=== PATIENT | female | born 1935 | race Caucasian/White ===

== ENCOUNTER → 2022-04-10 12:39 | Outpatient (CLI) | payer MEDICARE, SELFPAY ==
--- NOTE | ~2022-04-10 | XR_ITS ---
XR_[id number]_CR DATE: 04/10/2022 13:39 INDICATION: Chronic degenerative change of the knees TECHNIQUE: AP and lateral views of left knee COMPARISON: None FINDINGS: There is osteopenia. There is severe joint space narrowing and mild periarticular spurring at the medial compartment consi stent with severe medial compartment osteoarthritis. Lateral compartment joint space is well preserve d, with minimal periarticular spurring. There is mild periarticular spurring at the patellofemoral joint. No fracture, dislocation, periosteal reaction or bone destruction, radiopaque intra-articular loose b mendy or, calcinosis is detected. 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 . Reviewed, dictated and finalized at [facility]. 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
--- NOTE | ~2022-04-10 | XR_ITS ---
XR_[id number]_CR DATE: 04/10/2022 13:39 INDICATION: Chronic degenerative change of the knees TECHNIQUE: Standing AP and lateral views COMPARISON: None FINDINGS: There is diffuse osteopenia. No fracture or dislocation, periosteal reaction or bone destru ction. There is tricompartment osteoarthritic, most severe at the lateral compartment, moderate at the rivera lofemoral and medial compartments. No radiopaque intra-articular loose body or chondrocalcinosis is detected. Mild to moderate suprapate llar knee joint effusion is suggested. IMPRESSION: Mild to moderate suprapatellar knee joint effusion is suggested Tricompartment osteophytes, severe at the lateral compartment Osteopenia Reviewed, dictated and finalized at [facility]. Reviewed, dictated and finalized at [facility]. 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
== END ==
PROVIDERS: PCP Internal Medicine; Visit Provider Physical Medicine & Rehabilitation
DX: M17.0 Bilateral primary osteoarthritis of knee (principal); M25.461 Effusion, right knee; M85.861 Other specified disorders of bone density and structure, right lower leg; M85.862 Other specified disorders of bone density and structure, left lower leg
CPT/HCPCS: 73560

== ENCOUNTER 2024-06-12 15:50 | Emergency (ER) | payer MEDICARE, SELFPAY ==
[2024-06-12] VITALS (28 sets, daily range): BP systolic 79–114; BP diastolic 51–76; PULSE 70–88; RESP 12–27; TEMP 36.6; O2SAT 95–100
--- NOTE | ~2024-06-12 | XR_ITS ---
HISTORY: knee pain COMPARISON: 04/10/2022 TECHNIQUE: 3 views of the left knee were performed FINDINGS: No acute or subacute fracture. Severe medial tibiofemoral joint space narrowing is identified with sclerosis of the distal femur and tibial plateau, demonstrating progression from previous examination dated 04/10/2022 No suprapatellar joint effusion is identified. The infrapatellar joint space is clear. Diffuse bony demineralization is present. IMPRESSION: Severe medial tibiofemoral joint space narrowing, demonstrating significant progression from previous examination performed in 2022. Reviewed, dictated and finalized at location A. IMPRESSION: Severe medial tibiofemoral joint space narrowing, demonstrating si gnificant progression from previous examination performed in 2022.
--- NOTE | ~2024-06-12 | CT_ITS ---
EXAMINATION: CTA chest PE protocol DATE: 06/12/2024 20:04 CDT INDICATION: Hypoxia TECHNIQUE: Computed tomographic angiography (CTA) of the chest was performed with 100 mL Omnipaque-35 0 intravenous contrast. The dose-length product was 265.95 mGy-cm. Maximum intensity projection 3D-re constructions of the aorta and other arteries were constructed by the technologist on a separate work station. COMPARISON: 04/26/2024, which demonstrated extensive bilateral pulmonary emboli and right heart strain . FINDINGS/OBSERVATIONS: PULMONARY ARTERIES: No filling defect is identified within the main or proximal pulmonary artery. Massive enlargement of both the main and proximal pulmonary arteries consistent with severe pulmonary hypertension. This finding is unchanged from previous examination dated 04/26/2024 THORACIC AORTA: No aneurysmal dilatation or dissection is present. The great vessels are intact LUNGS: Bilateral pleural effusions (right greater than left) with adjacent compressive atelectasis. This finding is an interval change from prior. MEDIASTINUM: No morphologically suspicious or pathologically enlarged lymph nodes are identified with in the mediastinum or bilateral axilla. BONES OF THE CHEST: No acute fracture. 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 No lytic or blastic lesions. HEART: The heart is significantly enlarged, without pericardial effusion. IMPRESSION: No pulmonary embolus. No thoracic aortic dissection. Findings consistent with significant pulmonary hypertension, as detailed above. Interval development of small bilateral pleural effusions with adjacent compressive compressive atele ctasis Reviewed, dictated and finalized at location A. IMPRESSION: No pulmonary embolus. No thoracic aortic dissection. Findings consistent with significant pulmonary hypertension, as detailed above. Interval development of small bilateral pleural effusions with adjacent yue sive compressive atelectasis
--- NOTE | ~2024-06-12 | US_ITS ---
EXAMINATION: US venous doppler [facility] DATE: 06/12/2024 16:53 INDICATION: Bilateral lower limb pain and swelling TECHNIQUE: Grayscale ultrasound images without and with compression and Doppler ultrasound images of the bilateral lower extremity veins were obtained. COMPARISON: None. FINDINGS: Noncompressible but nonocclusive deep venous thrombosis at the right posterior tibial and peroneal ve ins at the calf. The visualized portions of right common femoral vein, profunda (deep) femoral vein, femoral vein, popliteal vein, gastrocnemius vein and greater saphenous vein outflow are patent. Noncompressible deep venous fibrosis at the left posterior tibial and peroneal veins which appears oc clusive on color Doppler at the peroneal veins and at one of the posterior tibial veins. The visualiz ed portions of left common femoral vein, profunda femoral vein, femoral vein, popliteal vein, gastroc nemius vein and greater saphenous vein outflow are patent. IMPRESSION: 1. Myyjp-hsi-nlda deep venous anastomosis at the bilateral posterior tibial and peroneal veins at th e calf. Dr. Cohen discussed these findings with Dr. Merrill at 5:07 PM. Reviewed, dictated and finalized at location A. IMPRESSION: 1. Qdhia-mmx-ghvt deep venous anastomosis at the bilateral posterior tibial an d peroneal veins at the calf. Dr. Cohen discussed these findings with Dr. Speedy zuniga at 5:07 PM.
--- NOTE | ~2024-06-12 | XR_ITS ---
XR chest 1V portable Ordering provider: Della Merrill PA-C History: 89 years Female with . chf w/u . Comparison: April 26, 2024 FINDINGS: MEDIASTINUM: The cardiac silhouette is slightly enlarged. Sliding hiatus hernia. Prominent right hilu m. Further evaluation advised. LUNGS: No effusions or pneumothorax. Opacification in the right lung base seen suggestive of atelecta sis versus pneumonia. OTHER: No free air under the diaphragm. IMPRESSION: Right basilar atelectasis versus pneumonia. Prominent right hilum. Further evaluation advised. Sliding hiatus hernia. Slight cardiomegaly. Reviewed, dictated and finalized at location A.
--- NOTE | 2024-06-12 16:30 | ECG_ITS ---
Test Date: 2024-06-12 16:54:38 Measurements Intervals Freedom Rate: 85 P: 42 GA: 191 QRS: -21 QRSD: 105 T: -35 QT: 328 QTc: 392 Interpretive Statements SINUS RHYTHM WITH OCCASIONAL SUPRAVENTRICULAR PREMATURE COMPLEXES BORDERLINE LEFT AXIS DEVIATION [QRS AXIS < -20] NONSPECIFIC ST AND T WAVE ABNORMALITY No previous ECG available for comparison Electronically Signed On 06-13-2024 12:05:21 CDT by Du Degroot M.D.
--- NOTE | 2024-06-12 16:30 | ED.EXTPRO ---
HPI - Extremity Problem General Chief complaint: Extremity Problem,Nontraumatic <ROLY Michele Last Filed: 06/12/24 20:41> Stated complaint: L knee pain <ROLY Michele Last Filed: 06/12/24 20:41> Time Seen by Provider: 06/12/24 16:12 <ROLY Michele Last Filed: 06/12/24 20:41> Source: patient, family and old records reviewed <ROLY Michele Last Filed: 06/12/24 20:41> Mode of arrival: EMS <ROLY Michele Last Filed: 06/12/24 20:41> Limitations: no limitations <ROLY Michele Last Filed: 06/12/24 20:41> History of Present Illness HPI Narrative: Patient is an 89-year-old female, with past medical history of CHF, DM, pulmonary HTN, CKD, hypotension, who presents to the ED via EMS with report of L knee pain. Patient is resident of [facility]. Per fdc report, patient was sent here today due to pain in her left knee. Family reports this began while patient was in physical therapy. Denies any injury. Per records, patient was recently seen here on 04/26, diagnosed with right lower extremity DVT of the common femoral vein, as well as bilateral PEs with right heart strain. She was transferred to [facility] at that time. Patient is now on Xarelto. Family reports patient has been dealing with swelling throughout her bilateral lower extremities for quite some time. She has been using compression bandages, but still has significant swelling. She is on lasix 20mg daily. Per fdc report, patient was also noted to be hypoxic on her normal 2 L. Was increased to 4L. Patient denies shortness of breath, recent cough, chest pain. No fevers. <ROLY Michele Last Filed: 06/12/24 20:41> Related Data Home medications: Home Medications ?Medication ?Instructions ?Recorded ?Confirmed ?Last Taken ?Type ferrous sulfate 325 mg (65 mg 325 mg PO DAILY 07/05/23 Unknown History iron) tablet <Della Merrill PA-C - Last Filed: 06/12/24 20:41> Allergies/Adverse reactions: Allergies Allergy/AdvReac Type Severity Reaction Status Date / Time Penicillins Allergy Severe Hives Verified 06/12/24 16:01 heparin Allergy Unknown Unknown Verified 06/12/24 16:01 <Della Merrill PA-C - Last Filed: 06/12/24 20:41> Review of Systems Review of Systems: All systems reviewed & are unremarkable except as noted in HPI. 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 of arm Peritonitis Osteoporosis Mild dementia CKD (chronic kidney disease) stage 3, GFR 30-59 ml/min Degenerative arthritis of knee, bilateral Lipoma of back Overweight (10/25/15) Type 2 diabetes mellitus without complication, without long-term current use of insulin <Della Merrill PA-C - Last Filed: 06/12/24 20:41> Surgical History Surgical History: Surgical History History of gastric surgery <Della Merrill PA-C - Last Filed: 06/12/24 20:41> Family History Family History: Family History Mother Diabetes mellitus Family history of diabetes mellitus in first degree relative Patient's mother is Sibling Cerebrovascular accident Patient's sister is in good health Family history of malignant neoplasm Patient's sister is Patient's brother is <Della Merrill PA-C - Last Filed: 06/12/24 20:41> Social History Social History: Social History Social History: Smoking status: Never smoker Second hand tobacco smoke exposure: No Alcohol intake: current Substance use: never Substance use type: does not use Do You Feel Safe in your Home?: Yes Lack of Transportation: No Lack of Food: Never True Current Housing: I Have Housing Concerned About Future Housing: No Difficulty Paying Gas/Electric Bills: No Difficulty Paying for Meds: No Currently Unemployed: YES Education: Don't Know Difficulty w/ Childcare or Family Care: No Living arrangements: alone Occupation/Education: retired Gender identity (if verbalized by the patient): Female Sexual Orientation (if Verbalized by the Patient): Straight or Heterosexual <Della Merrill PA-C - Last Filed: 06/12/24 20:41> Exam Narrative: GENERAL: Elderly, frail, non-toxic, in no acute distress. HEAD: Normocephalic, atraumatic. RESPIRATORY: Airway patent, respirations nonlabored. Decreased lung sounds in bases bilaterally, slight rhonchi heard in right lower lung zone. On 2L NC. CARDIOVASCULAR: Regular rate and rhythm without murmurs, rubs, or gallops. Pedal pulses are intact. MUSCULOSKELETAL: Moves all extremities. No gross deformities. Severe pitting edema throughout bilateral lower extremities, extending all the way up to thighs/hips. Anasarca. SKIN: Warm, dry, normal color. Abrasion to right lower giles which does appear to be well healing. No signs of infection at this time. NEURO: A&O X3. Speech clear. Cranial nerves II-XII grossly intact. No ataxic movements. PSYCHIATRIC: Appropriate mood and affect. Normal interaction. <Della Merrill PA-C - Last Filed: 06/12/24 20:41> Course Vital Signs Vital signs: Vital Signs Temperature 36.6 C 06/12/24 15:50 Pulse Rate 82 06/12/24 15:50 Respiratory Rate 14 06/12/24 15:50 Blood Pressure 114/76 06/12/24 15:50 Pulse Oximetry 95 06/12/24 15:50 Oxygen Delivery Nasal Cannula 06/12/24 15:50 Oxygen Flow Rate 2 06/12/24 15:50 Temperature 36.6 C 06/12/24 15:50 Pulse Rate 84 06/12/24 21:16 Respiratory Rate 24 H 06/12/24 21:16 Blood Pressure 89/56 L 06/12/24 21:15 Pulse Oximetry 98 06/12/24 21:16 Oxygen Delivery Nasal Cannula 06/12/24 15:50 Oxygen Flow Rate 2 06/12/24 15:50 <Della Merrill PA-C - Last Filed: 06/12/24 20:41> Vital Signs Temperature 36.6 C 06/12/24 15:50 Pulse Rate 82 06/12/24 15:50 Respiratory Rate 14 06/12/24 15:50 Blood Pressure 114/76 06/12/24 15:50 Pulse Oximetry 95 06/12/24 15:50 Oxygen Delivery Nasal Cannula 06/12/24 15:50 Oxygen Flow Rate 2 06/12/24 15:50 Temperature 36.6 C 06/12/24 15:50 Pulse Rate 84 06/12/24 21:16 Respiratory Rate 24 H 06/12/24 21:16 Blood Pressure 89/56 L 06/12/24 21:15 Pulse Oximetry 98 06/12/24 21:16 Oxygen Delivery Nasal Cannula 06/12/24 15:50 Oxygen Flow Rate 2 06/12/24 15:50 <Dusty Gillette MD - Last Filed: 06/12/24 23:35> MDM - Extremity (Nontraumatic) MDM Narrative Medical decision making narrative: Patient presented to ED with left knee pain, hypoxia, swelling of legs. Recent hospitalization in April of this year for RLE DVT, PEs with right heart strain, hypoxia. Patient was started on heparin at that time, transferred to [facility]. Now on xarelto. care home staff reported patient's oxygen was low on her 2 L nasal cannula today, she was increased to 4 L. Oxygen is stable in the mid 90s on 2 L here. Vitals are otherwise stable. Blood pressure is somewhat borderline hypotensive, though family reports this is fairly normal for patient. She does have history of hypotension and is on midodrine. Patient today with severe diffuse pitting edema throughout bilateral lower extremities. Is on Lasix 20 mg daily. Grandson at bedside reports that patient often has issues with her diuretic causing hypotension. BNP today is elevated to 5030. Given dose of IV Lasix in the ED. Venous Doppler ultrasound of bilateral lower extremities was obtained. This is showing bilateral jhuvc-vin-[id number] DVTs. Venous Doppler ultrasound of BLE on 04/26, only showed thrombosis of RLE common femoral vein. She has been on xarelto, last dose today. Patient's fdc paperwork now has a heparin allergy reported. Unclear etiology of this. Will discuss with family. XR L knee with severe progressing arthritis, no fx. CBC with white blood cell count of 10.2. Hemoglobin 10.4. Hemoglobin from April was low into this 7 range. CMP with sodium of 132, potassium 3.0. Oral and IV replacement given. Magnesium was borderline at 1.7. IV replacement ordered. Kidney function is stable here today. Calcium slightly low at 7.5. Albumin low at 2.6. Given IV albumin replacement for fluid overload/intravascular depletion. EKG without concerning ischemic changes at this time. Patient is denying chest pain. Baseline troponin is undetectable. Coags are abnormal. PT prolonged at 40.3. PTT 52.9. INR 4.1. Given these findings with worsening blood clots while on anticoagulation, DIC panel was added on. HIT antibodies added on. Fibrinogen WNL. D-dimer 1.25. CTA of chest obtained to r/o worsening pulmonary emboli. This shows no evidence of PE, does show severe pHTN. Given that patient has failed oral anticoagulation with worsening clots, abnormal coagulopathy, now with acute CHF exacerbation. Patient will need admission for further evaluation. Unfortunately we do not have hematology here. Will discuss with [facility] for transfer for continuity of care/higher level care. Had extensive discussion with patient's nieces (Purnima-RAINA, Cassie) via phone. They report the patient had developed abnormal intramuscular bleeding at [facility] while on heparin. They are not aware of any other allergies/reactions to heparin. They believe this is the cause of the heparin allergy listed. Patient had IVC filter placed while at [facility]. Family want a second opinion and would like patient transferred to [place]. Family would be OK with a central line if patient needs it. Patient is a DNR/DNI, but they would otherwise want everything done. <Della Merrill PA-C - Last Filed: 06/12/24 20:41> Patient presented to ED with left knee pain, hypoxia, swelling of legs. Recent hospitalization in April of this year for RLE DVT, PEs with right heart strain, hypoxia. Patient was started on heparin at that time, transferred to [facility]. Now on xarelto. care home staff reported patient's oxygen was low on her 2 L nasal cannula today, she was increased to 4 L. Oxygen is stable in the mid 90s on 2 L here. Vitals are otherwise stable. Blood pressure is somewhat borderline hypotensive, though family reports this is fairly normal for patient. She does have history of hypotension and is on midodrine. Patient today with severe diffuse pitting edema throughout bilateral lower extremities. Is on Lasix 20 mg daily. Grandson at bedside reports that patient often has issues with her diuretic causing hypotension. BNP today is elevated to 5030. Given dose of IV Lasix in the ED. Venous Doppler ultrasound of bilateral lower extremities was obtained. This is showing bilateral [id number] DVTs. Venous Doppler ultrasound of BLE on 04/26, only showed thrombosis of RLE common femoral vein. She has been on xarelto, last dose today. Patient's fdc paperwork now has a heparin allergy reported. Unclear etiology of this. Will discuss with family. XR L knee with severe progressing arthritis, no fx. CBC with white blood cell count of 10.2. Hemoglobin 10.4. Hemoglobin from April was low into this 7 range. CMP with sodium of 132, potassium 3.0. Oral and IV replacement given. Magnesium was borderline at 1.7. IV replacement ordered. Kidney function is stable here today. Calcium slightly low at 7.5. Albumin low at 2.6. Given IV albumin replacement for fluid overload/intravascular depletion. EKG without concerning ischemic changes at this time. Patient is denying chest pain. Baseline troponin is undetectable. Coags are abnormal. PT prolonged at 40.3. PTT 52.9. INR 4.1. Given these findings with worsening blood clots while on anticoagulation, DIC panel was added on. HIT antibodies added on. Fibrinogen WNL. D-dimer 1.25. CTA of chest obtained to r/o worsening pulmonary emboli. This shows no evidence of PE, does show severe pHTN. Given that patient has failed oral anticoagulation with worsening clots, abnormal coagulopathy, now with acute CHF exacerbation. Patient will need admission for further evaluation. Unfortunately we do not have hematology here. Will discuss with [facility] for transfer for continuity of care/higher level care. Had extensive discussion with patient's nieces (Merlyn, Cassie) via phone. They report the patient had developed abnormal intramuscular bleeding at [facility] while on heparin. They are not aware of any other allergies/reactions to heparin. They believe this is the cause of the heparin allergy listed. Patient had IVC filter placed while at [facility]. Family want a second opinion and would like patient transferred to [facility] system. Family would be OK with a central line if patient needs it. Patient is a DNR/DNI, but they would otherwise want everything done. Dr. Gillette: Assumed care from previous provider at shift change 7:00 p.m. patient was evaluated at bedside and doing well, not any acute distress and not having any acute complaints. She does have significant coagulopathy with elevated INR and still having new blood clots on Doppler ultrasound today. CTA shows improvement without any CT evidence of pulmonary embolism burden but she does have findings consistent with significant pulmonary hypertension as previously found. Interval small development of pleural effusions consistent with her clinical exam findings of anasarca, 3rd spacing and weeping of fluid. She does have a low albumin 2.6 which also contributes to the decreased oncotic pressure and 3rd spacing of fluid. She was provided additional boluses of albumin and a small 500 cc bolus of fluid with improvement her vitals. She does take midodrine 10 mg t.i.d. for low blood pressure and her family confirms her blood pressure runs in the 80s to 90 systolic and this is not abnormal for recently. She remains with good maps above 65 which is reassuring she is also saturating 100% on her baseline 2 L nasal cannula which is an improvement after treatment regimen here from her arrival time. Patient's care was discussed with the [facility] transfer system and I was connected with the hospitalist team at [facility] in [place]. Discussed the case with the mid-level provider covering the hospitalist service under Dr. Jacob who will be the accepting physician. We went over patient's clinical exam, historical features and findings as well as family's desire to avoid transfer to the [facility] system. Patient was accepted as a transfer to a telemetry monitored bed at [facility]. Awaiting call back with bed assignment. Transfer forms filled out and family updated on plan of care and were agreeable to the transfer to this hospital system. Patient remains on orthotist prosthetist with stable vitals at this time. <Dusty Gillette MD - Last Filed: 06/12/24 23:35> Medical Records Attestation: I reviewed the patient's medical records. <Della Merrill PA-C - Last Filed: 06/12/24 20:41> Lab Data Attestation: I reviewed the patient's lab results. <Della Merrill PA-C - Last Filed: 06/12/24 20:41> Result diagrams: 06/12/24 17:41 06/12/24 16:42 <Della Merrill PA-C - Last Filed: 06/12/24 20:41> Labs: Lab Results 06/12/24 06/12/24 06/12/24 Range/Units 16:42 16:42 17:41 WBC 10.2 H 10.3 H (4.5-10.0) K/mm3 RBC 3.92 L 3.76 L (4.2-5.4) M/mm3 Hgb 10.4 L 9.9 L (12.0-15.0) g/dL Hct 34.7 L 33.0 L (37.0-47.0) % MCV 88.5 87.8 (80-100) fl MCH 26.5 26.3 (26-34) pg MCHC 30.0 L 30.0 L (32-36) g/dl RDW 21.2 H 21.4 H (11.5-14.5) % Plt Count 163 173 (150-375) k/mm3 MPV 9.2 9.1 (7.4-10.4) fl Immature Gran % (Auto) 0.4 (0-0.5) % Neut % (Auto) 81.9 H (45.5-73.1) % Lymph % (Auto) 10.4 L (18.3-44.2) % [place] % (Auto) 6.3 (2.6-8.5) % Eos % (Auto) 0.8 (0-4.4) % Baso % (Auto) 0.2 (0.2-1.2) % Lymph # (Auto) 1.06 (0.9-3.2) K/mm3 [place] # (Auto) 0.6 (0.1-0.6) K/mm3 Eos # (Auto) 0.1 (0-0.3) K/mm3 Baso # (Auto) 0.0 (0.0-0.1) K/mm3 Abs Immat Gran (auto) 0.04 H (0.00-0.031) K/mm3 Absolute Neuts (auto) 8.4 H (1.3-6.7) K/mm3 Absolute Nucleated RBC 0.000 (0.0-0.012) K/mm3 Nucleated RBC % 0.0 (0.0-0.2) % PT 40.3 H 39.0 H (11.1-14.7) Seconds INR 4.1 3.9 APTT 52.9 H 53.6 H (22.3-36.8) Seconds Fibrinogen 480 (215-510) mg/dl D-Dimer 1.25 H (<0.48) ug/mL Sodium 132 L (137-145) mmol/L Potassium 3.0 L (3.4-5.0) mmol/L Chloride 94 L (98-107) mmol/L Carbon Dioxide 36 H (22-30) mmol/L Anion Gap 2 L (4-12) mmol/L BUN 21 H (7-17) mg/dL Creatinine 0.76 (0.7-1.0) mg/dL Estim Creat Clear Calc Not Reportable Estimated GFR > 60 (59 - ) Glucose 91 (65-110) mg/dL Calcium 7.5 L (8.4-10.2) mg/dL Magnesium 1.7 1.8 (1.6-2.3) mg/dL Total Bilirubin 0.9 (0.2-1.3) mg/dL AST 28 (14-36) U/L ALT 43 H (6-35) U/L Alkaline Phosphatase 217 H (38-126) U/L Troponin I < 0.012 Cancelled (0.000-0.034) ng/mL NT-Pro-B Natriuret Pep 5030 H (19.9-100) pg/mL Total Protein 6.0 L (6.3-8.2) g/dL Albumin 2.6 L (3.5-5.1) g/dL Urine Color (Yellow) Urine Appearance (Clear) Urine pH (5.0-9.0) Ur Specific [place] (1.001-1.035) Urine Protein (Negative) mg/dL Urine Glucose (UA) (Negative) mg/dL Urine Ketones (Negative) mg/dL Ur Blood (Man) (Negative) Urine Nitrate (Negative) Urine Bilirubin (Negative) Urine Urobilinogen (<2.0) mg/dL Leukocyte Esterase Rfl (Negative) MAXIMINO/UL Urine RBC (0-2) /hpf Urine WBC (0-3) /hpf Ur Squamous Epith Cells (Few) /hpf Urine Bacteria /hpf Urine Casts Heparin-induced Plt Ab Pending Hep-Induced Plt Ab Cmmt Pending 06/12/24 Range/Units 18:41 WBC (4.5-10.0) K/mm3 RBC (4.2-5.4) M/mm3 Hgb (12.0-15.0) g/dL Hct (37.0-47.0) % MCV (80-100) fl MCH (26-34) pg MCHC (32-36) g/dl RDW (11.5-14.5) % Plt Count (150-375) k/mm3 MPV (7.4-10.4) fl Immature Gran % (Auto) (0-0.5) % Neut % (Auto) (45.5-73.1) % Lymph % (Auto) (18.3-44.2) % [place] % (Auto) (2.6-8.5) % Eos % (Auto) (0-4.4) % Baso % (Auto) (0.2-1.2) % Lymph # (Auto) (0.9-3.2) K/mm3 [place] # (Auto) (0.1-0.6) K/mm3 Eos # (Auto) (0-0.3) K/mm3 Baso # (Auto) (0.0-0.1) K/mm3 Abs Immat Gran (auto) (0.00-0.031) K/mm3 Absolute Neuts (auto) (1.3-6.7) K/mm3 Absolute Nucleated RBC (0.0-0.012) K/mm3 Nucleated RBC % (0.0-0.2) % PT (11.1-14.7) Seconds INR APTT (22.3-36.8) Seconds Fibrinogen (215-510) mg/dl D-Dimer (<0.48) ug/mL Sodium (137-145) mmol/L Potassium (3.4-5.0) mmol/L Chloride (98-107) mmol/L Carbon Dioxide (22-30) mmol/L Anion Gap (4-12) mmol/L BUN (7-17) mg/dL Creatinine (0.7-1.0) mg/dL Estim Creat Clear Calc Estimated GFR (59 - ) Glucose (65-110) mg/dL Calcium (8.4-10.2) mg/dL Magnesium (1.6-2.3) mg/dL Total Bilirubin (0.2-1.3) mg/dL AST (14-36) U/L ALT (6-35) U/L Alkaline Phosphatase (38-126) U/L Troponin I (0.000-0.034) ng/mL NT-Pro-B Natriuret Pep (19.9-100) pg/mL Total Protein (6.3-8.2) g/dL Albumin (3.5-5.1) g/dL Urine Color Yellow (Yellow) Urine Appearance Clear (Clear) Urine pH 5.5 (5.0-9.0) Ur Specific [place] 1.005 (1.001-1.035) Urine Protein Negative (Negative) mg/dL Urine Glucose (UA) Negative (Negative) mg/dL Urine Ketones Negative (Negative) mg/dL Ur Blood (Man) 2+ H (Negative) Urine Nitrate Negative (Negative) Urine Bilirubin Negative (Negative) Urine Urobilinogen 0.2 (<2.0) mg/dL Leukocyte Esterase Rfl 3+ H (Negative) MAXIMINO/UL Urine RBC 51-100 H (0-2) /hpf Urine WBC 21-50 H (0-3) /hpf Ur Squamous Epith Cells None seen (Few) /hpf Urine Bacteria None seen /hpf Urine Casts 3-5 Heparin-induced Plt Ab Hep-Induced Plt Ab Cmmt <Della Merrill PA-C - Last Filed: 06/12/24 20:41> Lab Results 06/12/24 06/12/24 06/12/24 Range/Units 16:42 16:42 17:41 WBC 10.2 H 10.3 H (4.5-10.0) K/mm3 RBC 3.92 L 3.76 L (4.2-5.4) M/mm3 Hgb 10.4 L 9.9 L (12.0-15.0) g/dL Hct 34.7 L 33.0 L (37.0-47.0) % MCV 88.5 87.8 (80-100) fl MCH 26.5 26.3 (26-34) pg MCHC 30.0 L 30.0 L (32-36) g/dl RDW 21.2 H 21.4 H (11.5-14.5) % Plt Count 163 173 (150-375) k/mm3 MPV 9.2 9.1 (7.4-10.4) fl Immature Gran % (Auto) 0.4 (0-0.5) % Neut % (Auto) 81.9 H (45.5-73.1) % Lymph % (Auto) 10.4 L (18.3-44.2) % [place] % (Auto) 6.3 (2.6-8.5) % Eos % (Auto) 0.8 (0-4.4) % Baso % (Auto) 0.2 (0.2-1.2) % Lymph # (Auto) 1.06 (0.9-3.2) K/mm3 [place] # (Auto) 0.6 (0.1-0.6) K/mm3 Eos # (Auto) 0.1 (0-0.3) K/mm3 Baso # (Auto) 0.0 (0.0-0.1) K/mm3 Abs Immat Gran (auto) 0.04 H (0.00-0.031) K/mm3 Absolute Neuts (auto) 8.4 H (1.3-6.7) K/mm3 Absolute Nucleated RBC 0.000 (0.0-0.012) K/mm3 Nucleated RBC % 0.0 (0.0-0.2) % PT 40.3 H 39.0 H (11.1-14.7) Seconds INR 4.1 3.9 APTT 52.9 H 53.6 H (22.3-36.8) Seconds Fibrinogen 480 (215-510) mg/dl D-Dimer 1.25 H (<0.48) ug/mL Sodium 132 L (137-145) mmol/L Potassium 3.0 L (3.4-5.0) mmol/L Chloride 94 L (98-107) mmol/L Carbon Dioxide 36 H (22-30) mmol/L Anion Gap 2 L (4-12) mmol/L BUN 21 H (7-17) mg/dL Creatinine 0.76 (0.7-1.0) mg/dL Estim Creat Clear Calc Not Reportable Estimated GFR > 60 (59 - ) Glucose 91 (65-110) mg/dL Calcium 7.5 L (8.4-10.2) mg/dL Magnesium 1.7 1.8 (1.6-2.3) mg/dL Total Bilirubin 0.9 (0.2-1.3) mg/dL AST 28 (14-36) U/L ALT 43 H (6-35) U/L Alkaline Phosphatase 217 H (38-126) U/L Troponin I < 0.012 Cancelled (0.000-0.034) ng/mL NT-Pro-B Natriuret Pep 5030 H (19.9-100) pg/mL Total Protein 6.0 L (6.3-8.2) g/dL Albumin 2.6 L (3.5-5.1) g/dL Urine Color (Yellow) Urine Appearance (Clear) Urine pH (5.0-9.0) Ur Specific [place] (1.001-1.035) Urine Protein (Negative) mg/dL Urine Glucose (UA) (Negative) mg/dL Urine Ketones (Negative) mg/dL Ur Blood (Man) (Negative) Urine Nitrate (Negative) Urine Bilirubin (Negative) Urine Urobilinogen (<2.0) mg/dL Leukocyte Esterase Rfl (Negative) MAXIMINO/UL Urine RBC (0-2) /hpf Urine WBC (0-3) /hpf Ur Squamous Epith Cells (Few) /hpf Urine Bacteria /hpf Urine Casts Heparin-induced Plt Ab Pending Hep-Induced Plt Ab Cmmt Pending 06/12/24 Range/Units 18:41 WBC (4.5-10.0) K/mm3 RBC (4.2-5.4) M/mm3 Hgb (12.0-15.0) g/dL Hct (37.0-47.0) % MCV (80-100) fl MCH (26-34) pg MCHC (32-36) g/dl RDW (11.5-14.5) % Plt Count (150-375) k/mm3 MPV (7.4-10.4) fl Immature Gran % (Auto) (0-0.5) % Neut % (Auto) (45.5-73.1) % Lymph % (Auto) (18.3-44.2) % [place] % (Auto) (2.6-8.5) % Eos % (Auto) (0-4.4) % Baso % (Auto) (0.2-1.2) % Lymph # (Auto) (0.9-3.2) K/mm3 [place] # (Auto) (0.1-0.6) K/mm3 Eos # (Auto) (0-0.3) K/mm3 Baso # (Auto) (0.0-0.1) K/mm3 Abs Immat Gran (auto) (0.00-0.031) K/mm3 Absolute Neuts (auto) (1.3-6.7) K/mm3 Absolute Nucleated RBC (0.0-0.012) K/mm3 Nucleated RBC % (0.0-0.2) % PT (11.1-14.7) Seconds INR APTT (22.3-36.8) Seconds Fibrinogen (215-510) mg/dl D-Dimer (<0.48) ug/mL Sodium (137-145) mmol/L Potassium (3.4-5.0) mmol/L Chloride (98-107) mmol/L Carbon Dioxide (22-30) mmol/L Anion Gap (4-12) mmol/L BUN (7-17) mg/dL Creatinine (0.7-1.0) mg/dL Estim Creat Clear Calc Estimated GFR (59 - ) Glucose (65-110) mg/dL Calcium (8.4-10.2) mg/dL Magnesium (1.6-2.3) mg/dL Total Bilirubin (0.2-1.3) mg/dL AST (14-36) U/L ALT (6-35) U/L Alkaline Phosphatase (38-126) U/L Troponin I (0.000-0.034) ng/mL NT-Pro-B Natriuret Pep (19.9-100) pg/mL Total Protein (6.3-8.2) g/dL Albumin (3.5-5.1) g/dL Urine Color Yellow (Yellow) Urine Appearance Clear (Clear) Urine pH 5.5 (5.0-9.0) Ur Specific [place] 1.005 (1.001-1.035) Urine Protein Negative (Negative) mg/dL Urine Glucose (UA) Negative (Negative) mg/dL Urine Ketones Negative (Negative) mg/dL Ur Blood (Man) 2+ H (Negative) Urine Nitrate Negative (Negative) Urine Bilirubin Negative (Negative) Urine Urobilinogen 0.2 (<2.0) mg/dL Leukocyte Esterase Rfl 3+ H (Negative) MAXIMINO/UL Urine RBC 51-100 H (0-2) /hpf Urine WBC 21-50 H (0-3) /hpf Ur Squamous Epith Cells None seen (Few) /hpf Urine Bacteria None seen /hpf Urine Casts 3-5 Heparin-induced Plt Ab Hep-Induced Plt Ab Cmmt <Dusty Gillette MD - Last Filed: 06/12/24 23:35> Imaging Data Attestation: I personally reviewed and interpreted this imaging study as follows: <Della Merrill PA-C - Last Filed: 06/12/24 20:41> Radiologist's impression: ITS Impressions Chest X-Ray 06/12/24 17:01 IMPRESSION: Right basilar atelectasis versus pneumonia. Prominent right hilum. Further evaluation advised. Sliding hiatus hernia. Slight cardiomegaly. Venous Doppler Study 06/12/24 17:04 IMPRESSION: 1. [id number] deep venous anastomosis at the bilateral posterior tibial and peroneal veins at the calf. Dr. Cohen discussed these findings with Dr. Merrill at 5:07 PM. Knee X-Ray 06/12/24 18:08 IMPRESSION: Severe medial tibiofemoral joint space narrowing, demonstrating significant progression from previous examination performed in 2022. Chest CTA 06/12/24 20:04 IMPRESSION: No pulmonary embolus. No thoracic aortic dissection. Findings consistent with significant pulmonary hypertension, as detailed above. Interval development of small bilateral pleural effusions with adjacent compressive compressive atelectasis <Della Merrill PA-C - Last Filed: 06/12/24 20:41> ECG Data EKG #1: Attestation EKG: I personally reviewed and interpreted this ECG as follows: <ROLY Michele Last Filed: 06/12/24 20:41> ECG completion date: 06/12/24 <Della Merrill PA-C - Last Filed: 06/12/24 20:41> ECG completion time: 16:54 <ROLY Michele Last Filed: 06/12/24 20:41> EKG Interpretation: normal rate (85), sinus rhythm, PVCs and non-specific ST changes <ROLY Michele Last Filed: 06/12/24 20:41> Critical Care Time Critical Care Time Critical Care Time: Yes <Dusty Gillette MD - Last Filed: 06/12/24 23:35> Total Critical Care Time: 120 <Dusty Gillette MD - Last Filed: 06/12/24 23:35> Discharge Plan Discharge Clinical Impression: Hypokalemia, Elevated INR, Acute and chronic respiratory failure, DVT of lower extremity, bilateral, Coagulopathy, Low serum albumin, Anasarca, Chronic asymptomatic hypotension Acute exacerbation of CHF (congestive heart failure) Qualifiers: Heart failure type: unspecified Qualified Code(s): I50.9 - Heart failure, unspecified UTI (urinary tract infection) Qualifiers: Urinary tract infection type: acute cystitis Hematuria presence: with hematuria Qualified Code(s): N30.01 - Acute cystitis with hematuria <ROLY Michele Last Filed: 06/12/24 20:41> Patient Disposition: Acute Care Hospital <ROLY Michele Last Filed: 06/12/24 20:41> Condition: Guarded Prognosis <ROLY Michele Last Filed: 06/12/24 20:41> Patient Language: Kosovan <ROLY Michele Last Filed: 06/12/24 20:41> Prescriptions: No Action ferrous sulfate 325 mg (65 mg iron) tablet 325 mg PO DAILY <Della Merrill PA-C - Last Filed: 06/12/24 20:41> Follow-up/Referrals: Mariluz Martinez MD [Primary Care Provider] - <Della Merrill PA-C - Last Filed: 06/12/24 20:41> Time of Disposition: 23:34 <Della Merrill PA-C - Last Filed: 06/12/24 20:41> 23:34 <Dusty Gillette MD - Last Filed: 06/12/24 23:35>
[2024-06-12 16:49] LABS: Basophils Percent Auto 0.2 % (0.2-1.2); Eosinophils Absolute Auto 0.1 K/mm3 (0-0.3); Eosinophils Percent Auto 0.8 % (0-4.4); Hematocrit 34.7 % (37.0-47.0); Hemoglobin 10.4 g/dL (12.0-15.0); Immature Granulocyte Absolute 0.04 K/mm3 (0.00-0.031); Immature Granulocyte Percent A 0.4 % (0-0.5); Lymphocytes Absolute Auto 1.06 K/mm3 (0.9-3.2); Lymphocytes Percent Auto 10.4 % (18.3-44.2); Mean Corpuscular Hemoglobin 26.5 pg (26-34); Mean Corpuscular Volume 88.5 fl (80-100); Mean Platelet Volume 9.2 fl (7.4-10.4); Monocytes Absolute Auto 0.6 K/mm3 (0.1-0.6); Monocytes Percent Auto 6.3 % (2.6-8.5); Neutrophils Absolute Auto 8.4 K/mm3 (1.3-6.7); Neutrophils Percent Auto 81.9 % (45.5-73.1); Platelet Count Result 163 k/mm3 (150-375); Red Blood Count 3.92 M/mm3 (4.2-5.4); Red Cell Distribution Width 21.2 % (11.5-14.5); White Blood Count 10.2 K/mm3 (4.5-10.0)
--- OUTSIDE RECORDS SUMMARY | 2024-06-12 16:53 | XMS_ITS | Encounter Summary ---
Author Organization [facility] Address [address] [place] [address] Care Team Providers Care Production Team Manager Name Role Phone Cheko Soriano MD Primary Care Provider [phone] Reason for Visit * Reason Onset Date Comments Hospital Follow Up 05/02/2024 Encounter Details Date Type Department Care Team (Late st Contact Info) Description 05/02/2024 Telephone [facility] Pulmonology [facility] [address] [place] [address] Martha Marcus MD [address] [place] [address] Hospital Follow Up Social History Tobacco Use Types Packs/Day Years Used Date Smoking Tobacco: Never Alcohol Use Standard Drinks/Week Comments Yes 0 (1 standard drink = 0.6 oz pur e alcohol) occasional Feeling Safe Answer Date Recorded Are you in a relationship wi th someone who hurts you emotionally and/or physically? 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 * Telephone Encounter - Regla Garrett - 05/02/2024 3:02 PM CDT LVM to schedule. * Telephone Encounter - Martha Marcus MD - 05/02/2024 11:52 AM CDT Pls set up HFU in 4 months after discharge , with me . documented in this encounter Plan of Treatment Upcoming Encounters Date Type Department Care Team (Late st Contact Info) Description 08/28/2024 3:45 PM CDT Office Visit [facility] Pulmon[facility] [address] [place] [id number] Martha Marcus MD [address] [place] [address] documented as of this encounter Visit Diagnoses Not on filedocumented in this encounter Additional Health Concerns Infection Onset Date Last Indicated Resolved Time 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 diff 05/12/2024 05/12/2024 05/12/2024 6:55 AM CDT documented as of this encounter Care Teams Production Team Manager Relationship Specialty Start Date End Date Cheko Soriano MD [address] [facility] [address] [place] [id number] PCP - General Internal Medicine 12/18/16 documented as of this encounter
--- OUTSIDE RECORDS SUMMARY | 2024-06-12 16:53 | XMS_ITS | Encounter Summary ---
Author Organization [facility] Address [address] [place] [address] Care Team Providers Care Grinding And Spraying Supervisor Name Role Phone Cheko Soriano MD Primary Care Provider [phone] Encounter Details Date Type Department Care Team (Late st Contact Info) Description 01/04/2017 Chart Note Declan Camacho [facility] Radiation Therapy [address] [place] [address] [place] [address] [place] [address] Social History Tobacco Use Types Packs/Day Years Used Date Smoking Tobacco: Never Alcohol Use Standard Drinks/Week Comments Yes 0 (1 standard drink = 0.6 oz pur e alcohol) occasional Comments No Sex and Gender Information Value Date Recorded Sex Assigned at Not on file 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 Gender Identity Not on file Sexual Orientation Not on file documented as of this encounter Plan of Treatment Upcoming Encounters Date Type Department Care Team (Late st Contact Info) Description 08/28/2024 3:45 PM CDT Office Visit [facility] Pulmonology [facility] [address] [place] [address] Martha Marcus MD [address] [place] [address] documented as of this encounter Visit Diagnoses Not on filedocumented in this encounter Additional Health Concerns Infection Onset Date Last Indicated Resolved Time R/O Respiratory 04/27/2024 04/27/2024 04/27/2024 4 :47 AM CDT 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 diff 05/12/2024 05/12/2024 05/12/2024 6:55 AM CDT documented as of this encounter Care Teams Grinding And Spraying Supervisor Relationship Specialty Start Date End Date Cheko Soriano MD [address] [place] [phone] PCP - General Internal Medicine 12/18/16 documented as of this encounter
--- OUTSIDE RECORDS SUMMARY | 2024-06-12 16:53 | XMS_ITS | Clinical Summary ---
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 Active famotidine (PEPCID) 40 mg/5 mL suspension Take 2.5 mL (20 mg) by mouth daily. 5 Active midodrine (PROAMATINE) 10 mg Tablet Take 1 Tablet (10 mg) by mouth every 8 hours. Active rivaroxaban (Xarelto) 20 mg Tablet Take 1 Tablet (20 mg) by mouth daily with supper. Take after completing 21 days of 15 mg twice daily with food. Active rivaroxaban (XARELTO) 15 mg Tablet Take 1 Tablet (15 mg) by mouth 2 times daily with meals for 12 days. 5 06/04/19 Active Problems Problem Noted Date Diagnosed Date Thrombocytopenia due to drugs 05/13/2024 Protein-calorie malnutrition, severe 05/05/2024 Hematoma of right psoas region to anticoagulant therapy 05/04/2024 Acute blood loss anemia 05/04/2024 Shock circulatory 05/04/2024 Acute respiratory failure with hypoxia and hyper capnia 05/04/2024 Acute on chronic blood loss anemia 05/03/2024 Hypotension 05/03/2024 Psoas hematoma, left, secondary to anticoagulant therapy 05/02/2024 Acute pulmonary embolism 04/27/2024 DVT of lower limb, acute 04/27/2024 Cellulitis of right lower extremity 04/27/2024 Dog bite of right lower leg with infection 04/27 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 Encounters Date Type Department Care Team Description 06/03/2024 External Device Data [facility] ABSTRACTION Provider, Abstract 06/03/2024 External Device Data [facility] ABSTRACTION Provider, Abstract 05/07/2024 Results Follow-Up [facility] [address] [place] [address] Peterson, Angela, PHARMACIST VANCOMYCIN LEVEL TROUGH 05/06/2024 External Device Data ST[facility] ABSTRACTION Provider, Abstract 05/06/2024 External Device Data [facility] ABSTRACTION Provider, Abstract 05/06/2024 External Device Data [facility] ABSTRACTION Provider, Abstract 05/02/2024 Telephone [facility] [address] [place] [id number] Martha Marcus MD Hospital Follow Up 04/29/2024 External Device Data STL ABSTRACTION Provider, Abstract 04/29/2024 External Device Data ST[facility] ABSTRACTION Provider, Abstract 04/29/2024 External Device Data ST[facility] ABSTRACTION Provider, Abstract 04/29/2024 Travel 04/27/2024 1:03 AM CDT - 05/22/2024 1:51 PM CDT Hospital Encounter [facility] [address] [place] [address] Arjun Weber DO Plisco, Michael Scott, MD Hassan, MD Anders Hubbard Chakradhar, MD Katyal, Anup, MD Hilliard, MD Jhonny Larry Karen, MD Khan, Mafaza, MD Acute pulmonary embolism (CMS/HCC) Discharge Disposition: [facility] Fac(SNF) with Medicare Certification in Anticipation of Skilled Care 04/27/2024 Travel from Last 3 Months Family History Medical History Relation Name Comments No Known Problems Brother Heart Disease Father No Known Problems Mother Cancer Sister 1 No Known Problems Sister 2 No Known Problems Sister 3 Heart Disease Sister 4 Heart Disease Sister 5 Relation Name Status Comments Brother Father Mother Sister 1 Sister 2 Sister 3 Sister 4 Alive Sister 5 Alive Social History Tobacco Use Types Packs/Day Years Used Date Smoking Tobacco: Never Alcohol Use Standard Drinks/Week Comments Yes 0 (1 standard drink = 0.6 oz pur e alcohol) occasional Feeling Safe Answer Date Recorded Are you in a relationship wi th someone who hurts you emotionally and/or physically? 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 Gender Identity Not on file Sexual Orientation Not on file Last Filed Vital Signs Vital Sign Reading Time Taken Comments Blood Pressure 95/66 05/22/2024 12:11 PM CDT Pulse 82 05/22/2024 12:11 PM CDT Temperature 36.8 C (98.2 F) 05/22/2024 12:11 PM CDT Respiratory Rate 20 05/22/2024 12:11 PM CDT Oxygen Saturation 93% 05/22/2024 12:11 PM CDT Inhaled Oxygen Concentration - - Weight 75.8 kg (167 lb 3.2 oz) 05/16/2024 5:37 A M CDT Height 157.5 cm (5' 2 ) 05/12/2024 3:02 AM CDT Body Mass Index 30.58 05/12/2024 3:02 AM CDT Plan of Treatment Upcoming Encounters Date Type Department Care Team (Late st Contact Info) Description 08/28/2024 3:45 PM CDT Office Visit [facility] [address] [place] [address] Martha Marcus MD [address] [place] [address] Health Maintenance Due Date Last Done Comments DTAP/TDAP/TD VACCINES (1 - Tdap) 04/12/1954 PNEUMOCOCCAL VACCINE 50+ YEARS (1 of 1 - PCV) 04/12/18 86 ZOSTER VACCINE (1 of 2) 04/12/1985 OSTEOPOROSIS SCREENING 04/12/2000 RSV VACCINE (60+ or ) (1 - 1-dose 75+ series) 04/12/2010 INFLUENZA VACCINE (#1) 2023 Medical Devices Implanted Type Area Technical Stenographer Device Identifier Shelf Expiration Date Model / Serial / Lot Other-Ivc Filter- 5 Implanted:Qty: 1 on 05/02/2024 by Maryellen Degroot MD Other Inferior Vena Cava [id number] 03/26/2027 [id number] / / [id number] Description:Option ELITE Ret rievable Vena Cava Filter implanted on 05/02/[address] Degroot Procedures Procedure Name Priority Date/Time Associated Diagnosis Comments TELEMETRY REPORT 06/04/2024 4:03 PM CDT TELEMETRY REPORT 05/23/2024 3:59 PM CDT DIFFERENTIAL, MANUAL Routine 05/22/2024 4:13 AM CDT CBC WITH DIFFERENTIAL Routine 05/22/2024 4:13 AM CDT COMPREHENSIVE METABOLIC PANEL Routine 05/22/2024 4:13 AM CDT MAGNESIUM LEVEL Routine 05/22/2024 4:13 AM CDT PHOSPHORUS Routine 05/22/2024 4:13 AM CDT DIFFERENTIAL, MANUAL Routine 05/21/2024 6:58 AM CDT PTT Routine 05/21/2024 6:58 AM CDT CBC WITH DIFFERENTIAL Routine 05/21/2024 6:58 AM CDT COMPREHENSIVE METABOLIC PANEL Routine 05/21/2024 6:58 AM CDT MAGNESIUM LEVEL Routine 05/21/2024 6:58 AM CDT PHOSPHORUS Routine 05/21/2024 6:58 AM CDT DIFFERENTIAL, MANUAL Routine 05/20/2024 4:05 AM CDT PTT Routine 05/20/2024 4:05 AM CDT CBC WITH DIFFERENTIAL Routine 05/20/2024 4:05 AM CDT COMPREHENSIVE METABOLIC PANEL Routine 05/20/2024 4:05 AM CDT MAGNESIUM LEVEL Routine 05/20/2024 4:05 AM CDT PHOSPHORUS Routine 05/20/2024 4:05 AM CDT SEROTONIN RELEASE ASSAY, UNFRACTIONATED Routine 05/19/2024 8:56 AM CDT DIFFERENTIAL, MANUAL Routine 05/19/2024 3:12 AM CDT PTT Routine 05/19/2024 3:12 AM CDT CBC WITH DIFFERENTIAL Routine 05/19/2024 3:12 AM CDT COMPREHENSIVE METABOLIC PANEL Routine 05/19/2024 3:12 AM CDT MAGNESIUM LEVEL Routine 05/19/2024 3:12 AM CDT PHOSPHORUS Routine 05/19/2024 3:12 AM CDT DIFFERENTIAL, MANUAL Routine 05/18/2024 2:14 AM CDT PTT Routine 05/18/2024 2:14 AM CDT CBC WITH DIFFERENTIAL Routine 05/18/2024 2:14 AM CDT COMPREHENSIVE METABOLIC PANEL Routine 05/18/2024 2:14 AM CDT MAGNESIUM LEVEL Routine 05/18/2024 2:14 AM CDT PHOSPHORUS Routine 05/18/2024 2:14 AM CDT DIFFERENTIAL, MANUAL Routine 05/17/2024 2:16 AM CDT PTT Routine 05/17/2024 2:16 AM CDT CBC WITH DIFFERENTIAL Routine 05/17/2024 2:16 AM CDT COMPREHENSIVE METABOLIC PANEL Routine 05/17/2024 2:16 AM CDT MAGNESIUM LEVEL Routine 05/17/2024 2:16 AM CDT PHOSPHORUS Routine 05/17/2024 2:16 AM CDT POC GLUCOSE Routine 05/16/2024 1:23 PM CDT CBC WITHOUT DIFFERENTIAL Routine 05/16/2024 10:03 AM CDT POC GLUCOSE Routine 05/16/2024 8:28 AM CDT POC GLUCOSE Routine 05/16/2024 4:06 AM CDT DIFFERENTIAL, MANUAL Routine 05/16/2024 3:56 AM CDT PTT Routine 05/16/2024 3:56 AM CDT CBC WITH DIFFERENTIAL Routine 05/16/2024 3:56 AM CDT COMPREHENSIVE METABOLIC PANEL Routine 05/16/2024 3:56 AM CDT MAGNESIUM LEVEL Routine 05/16/2024 3:56 AM CDT PHOSPHORUS Routine 05/16/2024 3:56 AM CDT POC GLUCOSE Routine 05/16/2024 12:15 AM CDT POC GLUCOSE Routine 05/15/2024 8:34 PM CDT POC GLUCOSE Routine 05/15/2024 4:34 PM CDT POC GLUCOSE Routine 05/15/2024 12:17 PM CDT POC GLUCOSE Routine 05/15/2024 8:58 AM CDT POC GLUCOSE Routine 05/15/2024 6:15 AM CDT DIFFERENTIAL, MANUAL Routine 05/15/2024 4:20 AM CDT PTT Routine 05/15/2024 4:20 AM CDT CBC WITH DIFFERENTIAL Routine 05/15/2024 4:20 AM CDT COMPREHENSIVE METABOLIC PANEL Routine 05/15/2024 4:20 AM CDT MAGNESIUM LEVEL Routine 05/15/2024 4:20 AM CDT PHOSPHORUS Routine 05/15/2024 4:20 AM CDT POC GLUCOSE Routine 05/15/2024 12:39 AM CDT POC GLUCOSE Routine 05/14/2024 9:46 PM CDT HEPARIN INDUCED PLATELET ANTIBODY Routine 05/14/2024 7:00 PM CDT CBC WITHOUT DIFFERENTIAL Routine 05/14/2024 7:00 PM CDT EKG 12-LEAD Stat 05/14/2024 11:49 AM CDT PTT Stat 05/14/2024 10:40 AM CDT POC GLUCOSE Routine 05/14/2024 8:49 AM CDT POC GLUCOSE Routine 05/14/2024 4:48 AM CDT DIFFERENTIAL, MANUAL Routine 05/14/2024 2:07 AM CDT CBC WITH DIFFERENTIAL Routine 05/14/2024 2:07 AM CDT COMPREHENSIVE METABOLIC PANEL Routine 05/14/2024 2:07 AM CDT MAGNESIUM LEVEL Routine 05/14/2024 2:07 AM CDT PHOSPHORUS Routine 05/14/2024 2:07 AM CDT PTT Timed Study 05/14/2024 2:07 AM CDT POC GLUCOSE Routine 05/14/2024 12:04 AM CDT PTT Routine 05/13/2024 10:09 PM CDT POC GLUCOSE Routine 05/13/2024 8:12 PM CDT PTT Timed Study 05/13/2024 5:56 PM CDT POC GLUCOSE Routine 05/13/2024 4:08 PM CDT XR VIDEO SWALLOW W SPEECH Pending Discharge 05/13/2024 3:40 PM CDT UNFRACTIONATED HEPARIN ACTIVITY Routine 05/13/2024 2:16 PM CDT LACTATE DEHYDROGENASE Stat 05/13/2024 2:16 PM CDT VITAMIN B12 AND FOLATE Stat 05/13/2024 2:16 PM CDT HEPARIN-INDUCED PLATELET AB W/REFLEX JOEL Routine 05/13/2024 2:16 PM CDT DIC PROFILE Stat 05/13/2024 2:16 PM CDT POC GLUCOSE Routine 05/13/2024 11:58 AM CDT CBC WITHOUT DIFFERENTIAL Routine 05/13/2024 11:41 AM CDT XR CHEST PA OR AP 1 VW Routine 05/13/2024 11:09 AM CDT POC GLUCOSE Routine 05/13/2024 7:43 AM CDT POC GLUCOSE Routine 05/13/2024 4:39 AM CDT DIFFERENTIAL, MANUAL Routine 05/13/2024 3:24 AM CDT UNFRACTIONATED HEPARIN ACTIVITY Routine 05/13/2024 3:24 AM CDT CBC WITH DIFFERENTIAL Routine 05/13/2024 3:24 AM CDT COMPREHENSIVE METABOLIC PANEL Routine 05/13/2024 3:24 AM CDT MAGNESIUM LEVEL Routine 05/13/2024 3:24 AM CDT PHOSPHORUS Routine 05/13/2024 3:24 AM CDT POC GLUCOSE Routine 05/13/2024 12:11 AM CDT POC GLUCOSE Routine 05/12/2024 9:48 PM CDT POC GLUCOSE Routine 05/12/2024 9:26 PM CDT POC GLUCOSE Routine 05/12/2024 8:45 PM CDT POC GLUCOSE Routine 05/12/2024 4:59 PM CDT TELEMETRY REPORT 05/12/2024 12:3 2 PM CDT POC GLUCOSE Routine 05/12/2024 9:17 AM CDT POC GLUCOSE Routine 05/12/2024 5:20 AM CDT DIFFERENTIAL, MANUAL Routine 05/12/2024 1:08 AM CDT UNFRACTIONATED HEPARIN ACTIVITY Routine 05/12/2024 1:08 AM CDT CBC WITH DIFFERENTIAL Routine 05/12/2024 1:08 AM CDT COMPREHENSIVE METABOLIC PANEL Routine 05/12/2024 1:08 AM CDT MAGNESIUM LEVEL Routine 05/12/2024 1:08 AM CDT PHOSPHORUS Routine 05/12/2024 1:08 AM CDT POC GLUCOSE Routine 05/11/2024 11:42 PM CDT POC GLUCOSE Routine 05/11/2024 8:06 PM CDT POC GLUCOSE Routine 05/11/2024 4:28 PM CDT POC GLUCOSE Routine 05/11/2024 11:30 AM CDT POC GLUCOSE Routine 05/11/2024 7:14 AM CDT POC GLUCOSE Routine 05/11/2024 3:39 AM CDT DIFFERENTIAL, MANUAL Routine 05/11/2024 1:19 AM CDT UNFRACTIONATED HEPARIN ACTIVITY Routine 05/11/2024 1:19 AM CDT CBC WITH DIFFERENTIAL Routine 05/11/2024 1:19 AM CDT COMPREHENSIVE METABOLIC PANEL Routine 05/11/2024 1:19 AM CDT MAGNESIUM LEVEL Routine 05/11/2024 1:19 AM CDT PHOSPHORUS Routine 05/11/2024 1:19 AM CDT POC GLUCOSE Routine 05/10/2024 11:35 PM CDT POC GLUCOSE Routine 05/10/2024 11:30 PM CDT POC GLUCOSE Routine 05/10/2024 10:37 PM CDT POC GLUCOSE Routine 05/10/2024 10:13 PM CDT CBC WITHOUT DIFFERENTIAL Routine 05/10/2024 5:52 PM CDT POC GLUCOSE Routine 05/10/2024 11:23 AM CDT TELEMETRY REPORT 05/10/2024 10:5 0 AM CDT POC GLUCOSE Routine 05/10/2024 7:43 AM CDT ECHO LIMITED W DOPPLER AND COLOR FLOW Routine 05/10/2024 6:14 AM CDT DIFFERENTIAL, MANUAL Routine 05/10/2024 4:24 AM CDT UNFRACTIONATED HEPARIN ACTIVITY Timed Study 05/10/2024 4:24 AM CDT CBC WITH DIFFERENTIAL Routine 05/10/2024 4:24 AM CDT COMPREHENSIVE METABOLIC PANEL Routine 05/10/2024 4:24 AM CDT MAGNESIUM LEVEL Routine 05/10/2024 4:24 AM CDT PHOSPHORUS Routine 05/10/2024 4:24 AM CDT POC GLUCOSE Routine 05/10/2024 3:52 AM CDT POC GLUCOSE Routine 05/09/2024 8:02 PM CDT POC GLUCOSE Routine 05/09/2024 4:18 PM CDT POC GLUCOSE Routine 05/09/2024 12:17 PM CDT POC GLUCOSE Routine 05/09/2024 11:55 AM CDT XR ABDOMEN FOR FEEDING TUBE 1 VW Stat 05/09/2024 11:50 AM CDT US DOPPLER VENOUS ARM RIGHT Routine 05/09/2024 9:03 AM CDT POC GLUCOSE Routine 05/09/2024 8:07 AM CDT XR CHEST PA OR AP 1 VW Routine 05/09/2024 7:25 AM CDT BRAIN NATRIURETIC PEPTIDE, BNP OR PROBNP Routine 05/09/2024 4:57 AM CDT COMPREHENSIVE METABOLIC PANEL Routine 05/09/2024 4:57 AM CDT MAGNESIUM LEVEL Routine 05/09/2024 4:57 AM CDT PHOSPHORUS Routine 05/09/2024 4:57 AM CDT DIFFERENTIAL, MANUAL Routine 05/09/2024 4:50 AM CDT UNFRACTIONATED HEPARIN ACTIVITY Timed Study 05/09/2024 4:50 AM CDT CBC WITH DIFFERENTIAL Routine 05/09/2024 4:50 AM CDT POC GLUCOSE Routine 05/08/2024 9:44 PM CDT XR ABDOMEN FOR FEEDING TUBE 1 VW Stat 05/08/2024 5:13 PM CDT POC GLUCOSE Routine 05/08/2024 4:22 PM CDT XR VIDEO SWALLOW W SPEECH Routine 05/08/2024 1:55 PM CDT POC GLUCOSE Routine 05/08/2024 12:18 PM CDT TELEMETRY REPORT 05/08/2024 10:2 5 AM CDT UNFRACTIONATED HEPARIN ACTIVITY Timed Study 05/08/2024 9:58 AM CDT POC GLUCOSE Routine 05/08/2024 7:57 AM CDT PATHOLOGY Routine 05/08/2024 4:14 AM CDT PERIPHERAL BLOOD SMEAR PATHOLOGY INTERP Routine 05/08/2024 4:14 AM CDT DIFFERENTIAL, MANUAL Routine 05/08/2024 4:14 AM CDT UNFRACTIONATED HEPARIN ACTIVITY Timed Study 05/08/2024 4:14 AM CDT CBC WITH DIFFERENTIAL Routine 05/08/2024 4:14 AM CDT COMPREHENSIVE METABOLIC PANEL Routine 05/08/2024 4:14 AM CDT MAGNESIUM LEVEL Routine 05/08/2024 4:14 AM CDT PHOSPHORUS Routine 05/08/2024 4:14 AM CDT XR CHEST PA OR AP 1 VW Routine 05/08/2024 1:10 AM CDT POC GLUCOSE Routine 05/08/2024 12:13 AM CDT UNFRACTIONATED HEPARIN ACTIVITY Timed Study 05/07/2024 10:06 PM CDT POC GLUCOSE Routine 05/07/2024 8:04 PM CDT POC GLUCOSE Routine 05/07/2024 4:26 PM CDT UNFRACTIONATED HEPARIN ACTIVITY Timed Study 05/07/2024 3:42 PM CDT VANCOMYCIN LEVEL TROUGH Timed Study 05/07/2024 3:42 PM CDT TELEMETRY REPORT 05/07/2024 1:07 PM CDT POC GLUCOSE Routine 05/07/2024 12:09 PM CDT POC GLUCOSE Routine 05/07/2024 10:07 AM CDT UNFRACTIONATED HEPARIN ACTIVITY Routine 05/07/2024 10:02 AM CDT PTT Routine 05/07/2024 10:02 AM CDT CBC WITHOUT DIFFERENTIAL Routine 05/07/2024 10:02 AM CDT DIFFERENTIAL, MANUAL Routine 05/07/2024 4:57 AM CDT CBC WITH DIFFERENTIAL Routine 05/07/2024 4:57 AM CDT COMPREHENSIVE METABOLIC PANEL Routine 05/07/2024 4:57 AM CDT MAGNESIUM LEVEL Routine 05/07/2024 4:57 AM CDT PHOSPHORUS Routine 05/07/2024 4:57 AM CDT POC GLUCOSE Routine 05/06/2024 9:50 PM CDT SPUTUM CULTURE WITH GRAM STAIN Routine 05/06/2024 6:22 PM CDT Encounter for blood typing PNEUMONIA PATHOGEN PCR PANEL Routine 05/06/2024 6:22 PM CDT POC GLUCOSE Routine 05/06/2024 5:29 PM CDT POC GLUCOSE Routine 05/06/2024 1:55 PM CDT TELEMETRY REPORT 05/06/2024 1:01 PM CDT WOUND CULTURE WITH GRAM STAIN Routine 05/06/2024 12:57 PM CDT PROCALCITONIN Routine 05/06/2024 10:24 AM CDT POC GLUCOSE Routine 05/06/2024 9:37 AM CDT C-REACTIVE PROTEIN Routine 05/06/2024 4: 58 AM CDT DIFFERENTIAL, MANUAL Routine 05/06/2024 4:58 AM CDT CBC WITH DIFFERENTIAL Routine 05/06/2024 4:58 AM CDT COMPREHENSIVE METABOLIC PANEL Routine 05/06/2024 4:58 AM CDT MAGNESIUM LEVEL Routine 05/06/2024 4:58 AM CDT PHOSPHORUS Routine 05/06/2024 4:58 AM CDT POC GLUCOSE Routine 05/05/2024 9:05 PM CDT POC GLUCOSE Routine 05/05/2024 4:50 PM CDT POC GLUCOSE Routine 05/05/2024 11:59 AM CDT MRSA PCR RAPID SCREEN Routine 05/05/2024 10:21 AM CDT BLOOD GAS VENOUS Routine 05/05/2024 8:47 AM CDT POC GLUCOSE Routine 05/05/2024 7:47 AM CDT DIFFERENTIAL, MANUAL Routine 05/05/2024 4:20 AM CDT CBC WITH DIFFERENTIAL Routine 05/05/2024 4:20 AM CDT COMPREHENSIVE METABOLIC PANEL Routine 05/05/2024 4:20 AM CDT MAGNESIUM LEVEL Routine 05/05/2024 4:20 AM CDT PHOSPHORUS Routine 05/05/2024 4:20 AM CDT DIFFERENTIAL, MANUAL Timed Study 05/04/2024 11:48 PM CDT CBC WITH DIFFERENTIAL Timed Study 05/04/2024 11:48 PM CDT POC GLUCOSE Routine 05/04/2024 8:57 PM CDT LACTIC ACID Stat 05/04/2024 6:36 PM CDT CBC WITHOUT DIFFERENTIAL Stat 05/04/2024 6:36 PM CDT PREPARE RED BLOOD CELLS Routine 05/04/2024 6:07 PM CDT BLOOD GAS VENOUS Timed Study 05/04/2024 5:40 PM CDT POC GLUCOSE Routine 05/04/2024 4:20 PM CDT TRANSFUSE PACKED RED BLOOD CELLS Routine 05/04/2024 1:40 PM CDT POC GLUCOSE Routine 05/04/2024 12:15 PM CDT BLOOD GAS VENOUS Routine 05/04/2024 10:5 0 AM CDT INFLUENZA A/B, RSV AND COVID-19 PCR PANEL Routine 05/04/2024 10:44 AM CDT INFLUENZA A/B, RSV AND COVID-19 PCR PANEL Routine 05/04/2024 10:44 AM CDT TYPE AND SCREEN Routine 05/04/2024 9:24 AM CDT XR CHEST PA OR AP 1 VW Stat 05/04/2024 8:35 AM CDT PREPARE RED BLOOD CELLS Routine 05/04/2024 8:15 AM CDT DIFFERENTIAL, MANUAL Routine 05/04/2024 7:50 AM CDT CBC WITH DIFFERENTIAL Routine 05/04/2024 7:50 AM CDT CALCIUM IONIZED Routine 05/04/2024 7:50 AM CDT POC GLUCOSE Routine 05/04/2024 7:39 AM CDT COMPREHENSIVE METABOLIC PANEL Routine 05/04/2024 4:57 AM CDT MAGNESIUM LEVEL Routine 05/04/2024 4:57 AM CDT PHOSPHORUS Routine 05/04/2024 4:57 AM CDT POC GLUCOSE Routine 05/03/2024 9:16 PM CDT POC GLUCOSE Routine 05/03/2024 6:10 PM CDT HEMOGLOBIN AND HEMATOCRIT Routine 05/03/2024 5:49 PM CDT BLOOD CULTURE Routine 05/03/2024 3:36 PM CDT BLOOD CULTURE Routine 05/03/2024 3:36 PM CDT BLOOD CULTURE Routine 05/03/2024 3:30 PM CDT BLOOD CULTURE Routine 05/03/2024 3:30 PM CDT POC GLUCOSE Routine 05/03/2024 2:07 PM CDT PROCALCITONIN Routine 05/03/2024 12:00 PM CDT C-REACTIVE PROTEIN Routine 05/03/2024 12 :00 PM CDT LACTIC ACID Stat 05/03/2024 12:00 PM CDT POC GLUCOSE Routine 05/03/2024 9:33 AM CDT DIFFERENTIAL, MANUAL Routine 05/03/2024 5:20 AM CDT CBC WITH DIFFERENTIAL Routine 05/03/2024 5:20 AM CDT COMPREHENSIVE METABOLIC PANEL Routine 05/03/2024 5:20 AM CDT MAGNESIUM LEVEL Routine 05/03/2024 5:20 AM CDT PHOSPHORUS Routine 05/03/2024 5:20 AM CDT CALCIUM IONIZED Routine 05/03/2024 5:20 AM CDT HEMOGLOBIN AND HEMATOCRIT Routine 05/02/2024 11:50 PM CDT POC GLUCOSE Routine 05/02/2024 10:01 PM CDT POC GLUCOSE Routine 05/02/2024 6:29 PM CDT HEMOGLOBIN AND HEMATOCRIT Routine 05/02/2024 6:28 PM CDT IR IVC FILTER Routine 05/02/2024 4:11 PM CDT POC GLUCOSE Routine 05/02/2024 11:45 AM CDT HEMOGLOBIN AND HEMATOCRIT Routine 05/02/2024 11:44 AM CDT HEMOGLOBIN AND HEMATOCRIT Stat 05/02/2024 8:16 AM CDT POC GLUCOSE Routine 05/02/2024 8:11 AM CDT TRANSFUSE PACKED RED BLOOD CELLS Stat 05/02/2024 2:48 AM CDT TEG-TRAUMA Routine 05/02/2024 1:40 AM CDT COMPREHENSIVE METABOLIC PANEL Routine 05/02/2024 1:40 AM CDT MAGNESIUM LEVEL Routine 05/02/2024 1:40 AM CDT PHOSPHORUS Routine 05/02/2024 1:40 AM CDT CALCIUM IONIZED Routine 05/02/2024 1:40 AM CDT PREPARE RED BLOOD CELLS Routine 05/02/2024 1:39 AM CDT DIFFERENTIAL, MANUAL Stat 05/02/2024 1:03 AM CDT CBC WITH DIFFERENTIAL Stat 05/02/2024 1:[address] ABDOMEN PELVIS W CONTRAST Routine 05/01/2024 11:10 PM CDT XR HIP 1 VW LEFT Routine 05/01/2024 7:59 PM CDT POC GLUCOSE Routine 05/01/2024 12:53 PM CDT HEMOGLOBIN AND HEMATOCRIT Routine 05/01/2024 12:50 PM CDT POC GLUCOSE Routine 05/01/2024 8:48 AM CDT TRANSFUSE PACKED RED BLOOD CELLS Routine 05/01/2024 8:01 AM CDT TYPE AND SCREEN Routine 05/01/2024 5:20 AM CDT PREPARE RED BLOOD CELLS Routine 05/01/2024 5:09 AM CDT DIFFERENTIAL, MANUAL Routine 05/01/2024 3:45 AM CDT CBC WITH DIFFERENTIAL Routine 05/01/2024 3:45 AM CDT COMPREHENSIVE METABOLIC PANEL Routine 05/01/2024 3:45 AM CDT MAGNESIUM LEVEL Routine 05/01/2024 3:45 AM CDT PHOSPHORUS Routine 05/01/2024 3:45 AM CDT CALCIUM IONIZED Routine 05/01/2024 3:45 AM CDT POC GLUCOSE Routine 04/30/2024 11:24 PM CDT DIFFERENTIAL, MANUAL Routine 04/30/2024 4:09 AM CDT CBC WITH DIFFERENTIAL Routine 04/30/2024 4:09 AM CDT COMPREHENSIVE METABOLIC PANEL Routine 04/30/2024 4:09 AM CDT MAGNESIUM LEVEL Routine 04/30/2024 4:09 AM CDT PHOSPHORUS Routine 04/30/2024 4:09 AM CDT CALCIUM IONIZED Routine 04/30/2024 4:09 AM CDT US ARTERIAL W SEGMENTAL PRESS LOWER EXT Routine 04/29/2024 10:21 AM CDT POC GLUCOSE Routine 04/29/2024 9:21 AM CDT HEMOGLOBIN A1C Routine 04/29/2024 4:32 AM CDT DIFFERENTIAL, MANUAL Routine 04/29/2024 4:32 AM CDT CBC WITH DIFFERENTIAL Routine 04/29/2024 4:32 AM CDT COMPREHENSIVE METABOLIC PANEL Routine 04/29/2024 4:32 AM CDT MAGNESIUM LEVEL Routine 04/29/2024 4:32 AM CDT PHOSPHORUS Routine 04/29/2024 4:32 AM CDT CALCIUM IONIZED Routine 04/29/2024 4:32 AM CDT WOUND CULTURE WITH GRAM STAIN Routine 04/28/2024 10:22 AM CDT C-REACTIVE PROTEIN Routine 04/28/2024 5: 28 AM CDT CK Routine 04/28/2024 5:28 AM CDT DIFFERENTIAL, MANUAL Routine 04/28/2024 5:28 AM CDT UNFRACTIONATED HEPARIN ACTIVITY Timed Study 04/28/2024 5:28 AM CDT CBC WITH DIFFERENTIAL Routine 04/28/2024 5:28 AM CDT COMPREHENSIVE METABOLIC PANEL Routine 04/28/2024 5:28 AM CDT MAGNESIUM LEVEL Routine 04/28/2024 5:28 AM CDT PHOSPHORUS Routine 04/28/2024 5:28 AM CDT CALCIUM IONIZED Routine 04/28/2024 5:28 AM CDT HEMOGLOBIN AND HEMATOCRIT Stat 04/27/2024 8:03 PM CDT CALCIUM IONIZED Routine 04/27/2024 2:23 PM CDT HEMOGLOBIN AND HEMATOCRIT Routine 04/27/2024 2:23 PM CDT UNFRACTIONATED HEPARIN ACTIVITY Timed Study 04/27/2024 1:18 PM CDT TRANSFUSE PACKED RED BLOOD CELLS Routine 04/27/2024 11:[address] LOW EXT W CONTRAST RIGHT Stat 04/27/2024 10:03 AM CDT TYPE AND SCREEN Routine 04/27/2024 9:32 AM CDT VERIFICATION BLOOD GROUP Stat 04/27/2024 9:17 AM CDT Encounter for blood typing PREPARE RED BLOOD CELLS Routine 04/27/2024 9:00 AM CDT EKG 12-LEAD Routine 04/27/2024 8:16 AM CDT HEMOGLOBIN AND HEMATOCRIT Routine 04/27/2024 7:58 AM CDT UNFRACTIONATED HEPARIN ACTIVITY Timed Study 04/27/2024 7:58 AM CDT ECHO COMPLETE Stat 04/27/2024 7:00 AM CDT LACTIC ACID Routine 04/27/2024 6:08 AM CDT PHOSPHORUS Routine 04/27/2024 6:08 AM CDT CALCIUM IONIZED Routine 04/27/2024 6:08 AM CDT POC GLUCOSE Routine 04/27/2024 4:23 AM CDT MRSA PCR RAPID SCREEN Routine 04/27/2024 3:42 AM CDT RESPIRATORY PATHOGEN PCR PANEL Routine 04/27/2024 3:42 AM CDT RT ASSESS AND TREAT Routine 04/27/2024 3 :13 AM CDT DIFFERENTIAL, MANUAL Stat 04/27/2024 1:29 AM CDT TROPONIN Routine 04/27/2024 1:29 AM CDT COMPREHENSIVE METABOLIC PANEL Stat 04/27/2024 1:29 AM CDT CBC WITH DIFFERENTIAL Stat 04/27/2024 1:29 AM CDT LACTIC ACID Stat 04/27/2024 1:29 AM CDT MAGNESIUM LEVEL Stat 04/27/2024 1:29 AM CDT UNFRACTIONATED HEPARIN ACTIVITY Routine 04/27/2024 1:29 AM CDT PTT Routine 04/27/2024 1:29 AM CDT from Last 3 Months Results * TELEMETRY REPORT (06/04/2024 4:03 PM CDT) Only the most recent of7 resultswithin the time period is included. us Provider Scanning ECG ORDERABLES Final Result * MANUAL DIFFERENTIAL (05/22/2024 4:13 AM CDT) Only the most recent of27 resultswithin the time period is included. PLATELET EST. Consistent w Count 05/22/2024 6:51 AM CDT [facility] - . [facility] ANISOCYTOSIS 2+ /hpf 05/22/2024 6:51 AM CDT [facility] - . [facility] POIKILOCYTES 2+ /hpf 05/22/2024 6:51 AM CDT [facility] - . [facility] MICROCYTES 1+ /hpf 05/22/2024 6:51 AM CDT [facility] - . [facility] MACROCYTES 1+ /hpf 05/22/2024 6:51 AM CDT [facility] - . [facility] POLYCHROMASIA 1+ /hpf 05/22/2024 6:51 AM CDT [facility] - . [facility] HYPOCHROMIA 2+ /hpf 05/22/2024 6:51 AM CDT [facility] - . [facility] TARGET CELLS 1+ /hpf 05/22/2024 6:51 AM CDT [facility] - . [facility] Blood Venipuncture / Unknown 05/22/2024 4:13 AM CDT 05/22/2024 5:04 AM CDT Carolyn Dueñas DO HEMATOLOGY ORDERABLES CO M Final Result [facility] - [facility] CLIA# [id number] [address] [facility] [facility] [address] * (ABNORMAL) CBC WITH DIFFERENTIAL (05/22/2024 4:13 AM CDT) Only the most recent of27 resultswithin the time period is included. WBC 5.6 4.0 - 9.8 K/uL 05/22/2024 5:47 AM CDT [email or web address] - [facility] RBC 3.33(L) 3.90 - 4.90 M/uL 05/22/2024 5:47 AM CDT [email or web address] - [facility] HEMOGLOBIN 8.6(L) 11.8 - 14.8 g/dL 05/22/2024 5:47 AM CDT [facility] - [facility] HEMATOCRIT 31.7(L) 35.5 - 44.0 % 05/22/2024 5:47 AM CDT [facility] MCV 95.2 82.0 - 99.0 fL 05/22/2024 5:47 AM CDT [facility] MCH 25.8(L) 27.2 - 32.6 pg 05/22/2024 5:47 AM CDT [facility] - [facility] MCHC 27.1(L) 31.5 - 35.5 g/dL 05/22/2024 5:47 AM CDT [facility] RDW 05/22/2024 5:47 AM CDT [facility] Comment:Parameter not availa ble PLATELETS 131(L) 140 - 350 K/uL 05/22/2024 5:47 AM CDT [email or web address] MPV 10.1 9.3 - 12.4 fL 05/22/2024 5:47 AM CDT [email or web address] NEUTROPHILS 78 % 05/22/2024 5:47 AM CDT [facility] LYMPHOCYTES 11 % 05/22/2024 5:47 AM CDT [facility] - . [facility] MONOCYTES 8 % 05/22/2024 5:47 AM CDT [facility] - . [facility] EOSINOPHILS 2 % 05/22/2024 5:47 AM CDT [facility] - . [facility] BASOPHILS 1 % 05/22/2024 5:47 AM CDT [facility] IMMATURE GRANULOCYTES 1 % 05/22/2024 5:47 AM CDT [facility] Comment:IG (Immature Granulo cyte) count includes Metamyelocytes, Myelocytes, and Promyelocytes NEUTROPHIL ABSOLUTE 4.32 1.90 - 7.00 K/uL 05/22/2024 5:47 AM CDT [facility] LYMPHOCYTE ABSOLUTE 0.61(L) 0.70 - 4.50 K/uL 05/22/2024 5:47 AM CDT [facility] MONOCYTE ABSOLUTE 0.45 0.10 - 1.30 K/uL 05/22/2024 5:47 AM T [facility] EOSINOPHIL ABSOLUTE 0.11 0.00 - 0.70 K/uL 05/22/2024 5:47 AM CDT [facility] BASOPHILS ABSOLUTE 0.03 0.00 - 0.20 K/uL 05/22/2024 5:47 AM T [facility] IMMATURE GRANULOCYTES ABSOLUTE 0.04(H) 0.00 - 0.03 K/uL 05/22/2024 5:47 AM T [facility] Blood Venipuncture / Unknown 05/22/2024 4:13 AM CDT 05/22/2024 5:04 AM CDT Carolyn Dueñas DO HEMATOLOGY ORDERABLES Fi nal Result [facility]# [id number] [facility] [place] [address] * PHOSPHORUS (05/22/2024 4:13 AM CDT) Only the most recent of26 resultswithin the time period is included. PHOSPHORUS 2.7 2.5 - 4.5 mg/dL 05/22/2024 6:05 AM T [facility] Blood Venipuncture / Unknown 05/22/2024 4:13 AM CDT 05/22/2024 5:04 AM CDT Carolyn Toddzabeth Spenser DO CHEMISTRY ORDERABLES Fin al Result Performing Organization Address City/[facility]/ZIP Co de Phone Number [facility]# [id number] [address] [place] [address] * MAGNESIUM LEVEL (05/22/2024 4:13 AM CDT) Only the most recent of26 resultswithin the time period is included. MAGNESIUM 1.9 1.6 - 2.4 mg/dL 05/22/2024 6:05 AM T [email or web address] Blood Venipuncture / Unknown 05/22/2024 4:13 AM CDT 05/22/2024 5:04 AM CDT Carolyn Verónica Dueñas DO CHEMISTRY ORDERABLES Fin al Result Performing Organization Address [facility] Co de Phone Number [facility]# [id number] [address] [place] [address] * (ABNORMAL) COMPREHENSIVE METABOLIC PANEL (05/22/2024 4:13 AM CDT) Only the most recent of26 resultswithin the time period is included. SODIUM 141 136 - 145 mmol/L 05/22/2024 6:05 AM T [email or web address] POTASSIUM 4.5 3.5 - 5.0 mmol/L 05/22/2024 6:05 AM T [email or web address] CHLORIDE 110(H) 98 - 107 mmol/L 05/22/2024 6:05 AM T [email or web address]. [facility] CO2 27 22 - 29 mmol/L 05/22/2024 6:05 AM T [email or web address] CALCIUM 7.6(L) 8.6 - 10.2 mg/dL 05/22/2024 6:05 AM T [email or web address] BUN 23 8 - 23 mg/dL 05/22/2024 6:05 AM [facility] CREATININE 0.71 0.51 - 0.95 mg/dL 05/22/2024 6:05 AM [facility] Comment:The GFR result is no t clinically significant on patients <18 or >70 years of age. GLUCOSE 83 74 - 99 mg/dL 05/22/2024 6:05 AM [facility] TOTAL PROTEIN 4.9(L) 6.7 - 8.6 g/dL 05/22/2024 6:05 AM [facility] ALBUMIN 1.9(L) 3.5 - 5.2 g/dL 05/22/2024 6:05 AM [facility] BILIRUBIN TOTAL 0.6 0.2 - 1.1 mg/dL 05/22/2024 6:05 AM [facility] ALKALINE PHOSPHATASE 69 35 - 104 U/L 05/22/2024 6:05 AM [facility] AST 21 <33 U/L 05/22/2024 6:05 AM [facility] ALT 5 <34 U/L 05/22/2024 6:05 AM [facility] GFR >60 mL/min/1.7 3 sq meter 05/22/2024 6:05 AM [facility] Comment:eGFR calculated with 2020 CKD-EPI equation. Vegetarian diet, extremely high or low muscle mass, and may affect results. Cystatin C with Glomerular Filtration Rate is a suitable alternative for these patients. ANION GAP 4(L) 8 - 16 mmol/L 05/22/2024 6:05 AM [facility] Blood Venipuncture / Unknown 05/22/2024 4:13 AM CDT 05/22/2024 5:04 AM [facility] - 05/22/2024 6:05 AM [facility] Samples containing indocyanine green cause interferences on Total and/or Direct Bilirubin and must not be measured. Carolyn Dueñas DO CHEMISTRY ORDERABLES Fin al Result Performing Organization Address [facility] Co de Phone Number [facility] CLIA# [id number] [address] [place] [address] * (ABNORMAL) PTT (05/21/2024 6:58 AM CDT) Only the most recent of13 resultswithin the time period is included. [facility] [address] [facility] PTT 44.0(H) 24.4 - 36.4 seconds 05/21/2024 7:21 AM CDT [facility] Comment: PTT Therapeutic Range: Heparin Level PTT (seconds) <0.10 units/mL <55.8 0.10 - 0.30 units/mL 55.8 - 74.3 0.30 - 0.70 units/mL* 74.3 - 111.2* 0.70 - 1.00 units/mL 111.2 - 138.9 *corresponds to therapeutic range for unfractionated heparin Blood Venipuncture / Unknown 05/21/2024 6:58 AM CDT 05/21/2024 7:05 AM CDT us Christy Barry MD HEMATOLOGY ORDERABLES Final Resu lt Performing Organization Address [facility] Co de Phone Number [facility]# [id number] [address] [place] [address] * (ABNORMAL) SEROTONIN RELEASE ASSAY, UNFRACTIONATED (05/19/2024 8:56 AM CDT) [facility] [address] UFH JOEL RESULT POSITIVE( AA) Negative 05/23/2024 3:45 PM CDT [facility] Comment: 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 A positive result occurs only when there is >=20% serotonin release at low dose (0.1 IU/mL and/or 0.5 IU/mL) unfractionated heparin (UFH). In addition, specificity must be demonstrated by reduction of the % release by one half or greater with the high dose (100 IU/mL) UFH. The JOEL has a sensitivity (88-100%) and specificity (89-100%) for Heparin Induced Thrombocytopenia (HIT) (Nick Granados, Hematology Am Soc Hematol Educ Program, 2009; 225-232). CRITICAL VALUE REPORT UNFRACTIONATED HEPARIN LOW DOSE,0.1 IU/ML 74 % Release 05/23/2024 3:45 PM CDT [facility] UNFRACTIONATED HEPARIN LOW DOSE,0.5 IU/ML 87 % Release 05/23/2024 3:45 PM CDT [facility] UNFRACTIONATED HEPARIN HIGH DOSE,100 IU/ML 0 % Release 05/23/2024 3:45 PM CDT [facility] Comment: This test was developed and its analytical performance characteristics have been determined by [facility] [place], [place]. It has not been cleared or approved by the U.S. Food and Drug Administration. This assay has been validated pursuant to the CLIA regulations and is used for clinical purposes. For additional information, please refer to http://education.ShedWorx/faq/MTS67e3 (This link is being provided for informational/ educational purposes only.) Blood Venipuncture / Unknown 05/19/2024 8:56 AM CDT 05/19/2024 9:00 AM CDT Narrative [facility] - 05/23/2024 3:45 PM CDT Performing Organization Information: Site ID: AMD Name: [facility] Address: [address] [place] [address] [place] Director: Juan Cramer M.D.,PhD Thao Bojorquez MD CHEMISTRY ORDERABLES Final Resu lt [facility] [phone] * (ABNORMAL) POC GLUCOSE (05/16/2024 1:23 PM CDT) Only the most recent of78 resultswithin the time period is included. [facility] [address] GLUCOSE POC 123(H) 74 - 99 mg/dL 05/16/2024 1:23 PM CDT [facility] SPECIMEN SOURCE, GLUCOSE POC Whole Blood 05/16/2024 1:23 PM CDT [facility] COMMENT, GLU POC Notified RN/MD 05/16/2024 1:23 PM CDT [facility]ORY [facility] Blood, whole 05/16/2024 1:23 PM CDT 05/16/2024 2:27 PM CDT Christy Barry MD POINT OF CARE TESTING Final Resu lt [facility] CLIA# [id number] [address] [facility] [address] * (ABNORMAL) CBC WITHOUT DIFFERENTIAL (05/16/2024 10:03 AM CDT) Only the most recent of6 resultswithin the time period is included. WBC 6.6 4.0 - 9.8 K/uL 05/16/2024 10:49 AM CDT [facility] RBC 3.38(L) 3.90 - 4.90 M/uL 05/16/2024 10:49 AM CDT [facility] - [facility] HEMOGLOBIN 8.5(L) 11.8 - 14.8 g/dL 05/16/2024 10:49 AM [facility] HEMATOCRIT 30.5(L) 35.5 - 44.0 % 05/16/2024 10:49 AM CDT [facility]AT[facility] SERVICES [facility] MCV 90.2 82.0 - 99.0 fL 05/16/2024 10:49 AM CDT [facility] - [facility] MCH 25.1(L) 27.2 - 32.6 pg 05/16/2024 10:49 AM CDT [facility] - [facility] MCHC 27.9(L) 31.5 - 35.5 g/dL 05/16/2024 10:49 AM CDT [facility]ORATORY SERVICES [facility] PLATELETS 65(L) 140 - 350 K/uL 05/16/2024 10:49 AM CDT [facility] - [facility] Comment:Persistent abnormal result. MPV 05/16/2024 10:49 AM CDT [facility] Comment:Parameter not availa ble RDW 05/16/2024 10:49 AM CDT [facility] Comment:Parameter not availa ble Blood Venipuncture / Unknown 05/16/2024 10:03 AM CDT 05/16/2024 10:29 AM CDT us Carlton Gill MD HEMATOLOGY ORDERABLES Final Resu lt [facility] CLIA# [id number] [address] [place] [address] * (ABNORMAL) HEPARIN INDUCED PLATELET ANTIBODY (05/14/2024 7:00 PM CDT) HEPARIN INDUCED PLATELET AB Positive( AA) Negative 05/18/2024 2:09 PM CDT [employer] [facility] Comment: This test is approximately 95% sensitive for detecting antibodies to the Platelet Factor 4/Heparin Complex (PF4/Heparin). A positive test does not necessarily predict thrombosis or thrombocytopenia, since only a minority of PF4/Heparin antibodies activate platelets. Specificity improves when the O.D. is >1.000 and when a clinical risk assessment score is applied (J Thromb Haemost 2008;6:1304-12). The Serotonin Release Assay (JOEL) may provide additional value as a positive result has a higher predictive value for thrombocytopenia-thrombosis. CRITICAL VALUE REPORT PATIENT O.D. 1.912 OD UNITS 05/18/2024 2:09 PM CDT [employer] [facility] Comment: ! O.D.units ! Result ! ! ! ! ! <=0.300 ! Negative ! ! >0.300 to <=0.500 ! Weak Positive ! ! >0.500 ! Positive ! ! ! ! For additional information, please refer to http://education.ShedWorx/faq/PTP84b4 (This link is being provided for informational/ educational purposes only.) Blood Venipuncture / Unknown 05/14/2024 7:00 PM CDT 05/14/2024 7:06 PM CDT Narrative [facility] - 05/18/2024 2:09 PM CDT Performing Organization Information: Site ID: AMD Name: [facility] Address: [address] [place] [address] [place] [address] Director: Juan Cramer M.D.,PhD us Thao Bojorquez MD HEMATOLOGY ORDERABLES Final Res ult [facility] [phone] * EKG 12-LEAD (05/14/2024 11:49 AM CDT) Only the most recent of2 resultswithin the time period is included. 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 : 1935 Requested By: ARJUN BANKS Order Number: [id number] Reading MD: Tamanna Patrick Measurements Intervals Snowflake Rate: 82 P: 36 ND: 182 QRS: -19 QRSD: 101 T: 180 QT: 379 QTc: 443 Interpretive Statements SINUS RHYTHM Nonspecific ST-T abnormalities Poor R-wave progression, cannot rule out anterior infarct Electronically Signed On 05-14-2024 12:44:31 CDT by Tamanna Patrick Procedure Note Tamanna Patrick MD - 05/14/2024 [facility] [address] , [place] [address] Test Date: 2024-05-14 Pat Name: STEFANIA CLINE Department: 61 Room: [facility] 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: Female 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: [id number] : 1935 Requested By: ARJUN BANKS Order Number: [id number] Reading MD: Tamanna Patrick Measurements Intervals Snowflake Rate: 82 P: 36 ND: 182 QRS: -19 QRSD: 101 T: 180 QT: 379 QTc: 443 Interpretive Statements SINUS RHYTHM Nonspecific ST-T abnormalities Poor R-wave progression, cannot rule out anterior infarct Electronically Signed On 05-14-2024 12:44:31 CDT by Tamanna Patrick us Christy Barry MD ECG ORDERABLES Final Result Performing Organization Address City/State/[facility] Co de Phone Number INTERFACE SYSTEM Refer to clinic/hospital department * XR VIDEO SWALLOW W SPEECH (05/13/2024 3:40 PM CDT) Only the most recent of2 resultswithin the time period is included. Anatomical Region Laterality Modality Chest Computed Radiogr aphy 05/13/2024 4:33 PM CDT Impressions 05/13/2024 4:39 PM CDT IMPRESSION: Tracheal aspiration with thin and thick liquids. Fluoroscopic time is 2.7 minutes and Reference air kerma dose is 5.76 mGy DICTATION LOCATION: Location 1 - [facility] Narrative 05/13/2024 4:39 PM CDT VIDEO SWALLOW WITH SPEECH DATE: 05/13/2024 3:40 PM HISTORY: Aspiration. COMPARISON: None. FINDINGS: Swallowing test was performed in conjunction with speech therapy team. Various texture of the barium was given. Tracheal aspiration was demonstrated with thin and thick liquids. No aspiration is demonstrated with semisolid and solid foods. Procedure Note Chelsi Chase MD - 05/13/2024 VIDEO SWALLOW WITH SPEECH DATE: 05/13/2024 3:40 PM HISTORY: Aspiration. COMPARISON: None. FINDINGS: Swallowing test was performed in conjunction with speech therapy team. Various texture of the barium was given. Tracheal aspiration was demonstrated with thin and thick liquids. No aspiration is demonstrated with semisolid and solid foods. IMPRESSION: Tracheal aspiration with thin and thick liquids. Fluoroscopic time is 2.7 minutes and Reference air kerma dose is 5.76 mGy DICTATION LOCATION: Location 1 - [facility] Leena Atkinson MD DIAGNOSTIC IMAGING ORDE VICTOR HUGO Final Result * HEPARIN-INDUCED PLATELET AB W/REFLEX JOEL (05/13/2024 2:16 PM CDT) HEPARIN INDUCED PLATELET AB TNP 05/14/2024 4:37 PM CDT [facility] Comment: TEST NOT PERFORMED Specimen received unfrozen. Blood Venipuncture / Unknown 05/13/2024 2:16 PM CDT 05/13/2024 2:29 PM CDT Narrative [facility] - 05/14/2024 4:37 PM CDT Performing Organization Information: Site ID: AMD Name: [facility] [facility] [place] Address: [address] [place] [address] [place] Director: Juan Cramer M.D.,PhD Thao Bojorquez MD HEMATOLOGY ORDERABLES Final Res ult [facility] [phone] * (ABNORMAL) DIC PROFILE (05/13/2024 2:16 PM CDT) PROTIME 17.3(H) 12.7 - 15.1 Seconds 05/13/2024 3:14 PM CDT [facility] INR 1.4(H) 0.9 - 1.1 05/13/2024 3:14 PM CDT [facility] Comment: INR Therapeutic Range: Adult: 2.0 - 3.0 for pulmonary embolism or prophylaxis against venous thrombosis or systemic embolization. 2.0 - 3.0 for patients with tissue heart valves. 2.5 - 3.5 for patients with mechanical heart valves or post MD. Pediatric (12 years and under): 1.5 - 3.0 Although the target range in children is not well established, INR values of 1.5 - 3.0 are recommended for most patients. Higher values have been used in children with prosthetic cardiac valves and hereditary clotting disorders. Wilson (<3 days) therapeutic ranges have not been established PTT >150.0(HH ) 24.4 - 36.4 seconds 05/13/2024 3:14 PM T [facility] Comment: PTT Therapeutic Range: Heparin Level PTT (seconds) <0.10 units/mL <55.8 0.10 - 0.30 units/mL 55.8 - 74.3 0.30 - 0.70 units/mL* 74.3 - 111.2* 0.70 - 1.00 units/mL 111.2 - 138.9 *corresponds to therapeutic range for unfractionated heparin Verified by repeat analysis. FIBRINOGEN 247 205 - 450 mg/dL 05/13/2024 3:14 PM CDT [facility] D-DIMER QUANT 1.82(H) <0.50 ug/mL FEU 05/13/2024 3:14 PM CDT [facility] Comment: The DIC reference range is not clearly established in uncomplicated pregnancies. Values above the upper limit of the reference range are common from the 31st to 40th week of . High negative predictive values for DVT have been reported with the current methodology, as part of a comprehensive medical examination, including risk stratification. Various clinical studies utilizing this method have shown that a result of <0.5 mcg/ml FEU excludes deep vein thrombosis and pulmonary embolism with high sensitivity when used in conjunction with a non-high clinical pre-test probability assessment. Blood Venipuncture / Unknown 05/13/2024 2:16 PM CDT 05/13/2024 2:28 PM CDT us Thao Bojorquez MD HEMATOLOGY ORDERABLES Final Res ult [facility] CLIA# [id number] [address] [facility] [place] [address] * UNFRACTIONATED HEPARIN MONITORING (05/13/2024 2:16 PM CDT) Only the most recent of15 resultswithin the time period is included. ANTI-XA UNFRAC HEP 0.53 See Interpreta tion. IU/mL 05/13/2024 4:06 PM CDT [facility] Blood Venipuncture / Unknown 05/13/2024 2:16 PM CDT 05/13/2024 2:28 PM CDT Narrative [facility] - 05/13/2024 4:06 PM CDT Unfractionated Heparin Therapeutic Range: 0.30-0.70 IU/ml Refer to pharmacy adult heparin protocol for further recommendation. The reference range for this test is specific to the anticoagulant and is not appropriate for monitoring patients on a DOAC protocol. us Christy Barry MD HEMATOLOGY ORDERABLES Final Resu lt Performing Organization Address [facility] Co de Phone Number [facility] CLIA# [id number] [address] [place] [address] * VITAMIN B12 AND FOLATE (05/13/2024 2:16 PM CDT) Pathologist [facility] VITAMIN B12 1,134 232 - 1,245 pg/mL 05/13/2024 4:01 PM CDT [facility] Comment:It has been reported that between 5 to 10% of patients with values between 200 and 400 pg/mL may experience neuropsychiatric and hematologic abnormalities due to occult B12 deficiency. Less than 1% of patients with values above 400 pg/mL will have symptoms. FOLATE, SERUM 8.7 >4.5 ng/mL 05/13/2024 4:01 PM CDT [facility] Blood Venipuncture / Unknown 05/13/2024 2:16 PM CDT 05/13/2024 2:28 PM CDT Thao Bojorquez MD CHEMISTRY ORDERABLES Final Resu lt Performing Organization Address [facility] Co de Phone Number [facility] CLIA# [id number] [address] [place] [address] * (ABNORMAL) LACTATE DEHYDROGENASE (05/13/2024 2:16 PM CDT) LD (LACTATE DEHYDROGENASE) 602(H) 135 - 214 U/L 05/13/2024 3:13 PM CDT [facility] Blood Venipuncture / Unknown 05/13/2024 2:16 PM CDT 05/13/2024 2:28 PM CDT us Thao Bojorquez MD CHEMISTRY ORDERABLES Final Resu lt [facility] CLIA# [id number] [address] [place] [address] * XR CHEST PA OR AP 1 VW (05/13/2024 11:09 AM CDT) Only the most recent of4 resultswithin the time period is included. Anatomical Region Laterality Modality Chest Computed Radiogr aphy 05/13/2024 11:1 0 AM CDT Impressions 05/13/2024 2:11 PM CDT IMPRESSION: Increasing consolidation in the right lung base and new small right effusion extending into the minor fissure. Air noted in hiatal hernia. DICTATION LOCATION: 1 Narrative 05/13/2024 2:11 PM CDT EXAMINATION: XR CHEST PA OR AP 1 VW DATE: 05/13/2024 11:09 AM HISTORY: Hypoxia FINDINGS: Comparison is made to a radiograph from 05/09/2024. There is increasing consolidation in the right base and a new small right effusion which extends into the minor fissure. No pneumothorax. Air is noted in a hiatal hernia. Cardiomediastinal silhouette is stable. Procedure Note Yinka De La Torre MD - 05/13/2024 EXAMINATION: XR CHEST PA OR AP 1 VW DATE: 05/13/2024 11:09 AM HISTORY: Hypoxia FINDINGS: Comparison is made to a radiograph from 05/09/2024. There is increasing consolidation in the right base and a new small right effusion which extends into the minor fissure. No pneumothorax. Air is noted in a hiatal hernia. Cardiomediastinal silhouette is stable. IMPRESSION: Increasing consolidation in the right lung base and new small right effusion extending into the minor fissure. Air noted in hiatal hernia. DICTATION LOCATION: 1 us Christy Barry MD DIAGNOSTIC IMAGING ORDERABLES Fi nal Result * ECHO LIMITED W DOPPLER AND COLOR FLOW (05/10/2024 6:14 AM CDT) EJECTION FRACTION 55 INTERFACE SYSTEM 05/10/2024 5:53 AM CDT Narrative INTERFACE SYSTEM - 05/10/2024 9:08 AM CDT [address] [address] [email or web address] Echocardiogram Patient: Stefania Cline Study ID: ECHO ALDA W C Gender: F : 1935 Age: 89 Race: [facility] Height 157.5cm Study Date: 05/10/2024 Weight: 59.6kg Access. #: [id number] BP: *Referring Physician:Leena Pina Carolyn Anne *Ordering Physician:Leena Pina food demonstrator: Nurse: STUDY CONCLUSIONS: SUMMARY: - Left ventricle: The cavity size was normal. Wall thickness was normal. D shaped septum. Global systolic function is normal. For Epic reporting: the left ventricular ejection fraction is 55% . - Ventricular septum: Paradoxical septal motion. - Left atrium: The atrium is dilated. - Right ventricle: The cavity size is markedly dilated. Systolic function is reduced. - Right atrium: The atrium was dilated. - Tricuspid valve: Moderate-severe regurgitation. - Pulmonic valve: Moderate regurgitation. - Pulmonary arteries: The peak systolic pressure is 73mm Hg. PASP may be underestimated given severity of TR. Impressions: Limited echo to evaluate RV/LV. Cardiac Anatomy: LEFT VENTRICLE: The cavity size was normal. Wall thickness was normal. Global systolic function is normal. For Epic reporting: the left ventricular ejection fraction is 55% . AORTIC VALVE: . The leaflets are mildly thickened. MITRAL VALVE: Structurally normal valve. LEFT ATRIUM: The atrium is dilated. RIGHT VENTRICLE: The cavity size is markedly dilated. Systolic function is reduced. VENTRICULAR SEPTUM: Paradoxical septal motion. PULMONIC VALVE: Structurally normal valve. Moderate regurgitation. TRICUSPID VALVE: Structurally normal valve. Moderate-severe regurgitation. RIGHT ATRIUM: The atrium was dilated. SYSTEMIC VEINS: Inferior vena cava: The IVC is dilated. PERICARDIUM: There is no pericardial effusion. Measurements Right ventricle Value Ref 04/27/2024 TAPSE, MM (N) 1.7 cm >=1.7 2.0 Pressure, S 73 mm Hg --------- 73 Right atrium Value Ref 04/27/2024 SI dim, ES, A4C (H) 6.3 cm 3.4 - 5.3 6.3 SI dim/bsa, ES, A4C (H) 4.0 cm/m^2 1.9 - 3.1 3.9 Area, ES, A4C (H) 28 cm^2 10 - 18 22 Vol, ES, 1-p A4C 107 ml --------- 67 Vol/bsa, ES, 1-p A4C (H) 67 ml/m^2 9 - 33 42 Pulmonic valve Value Ref 04/27/2024 Peak v, S 1.49 m/sec --------- 1.39 Accel time 40 ms --------- Peak grad, S 9 mm Hg --------- 8 Tricuspid valve Value Ref 04/27/2024 TR peak v (H) 3.8 m/sec <=2.8 4 Peak RV-RA grad, S 58 mm Hg --------- 63 Pulmonary artery Value Ref 04/27/2024 Pressure, S 73 mm Hg --------- Systemic veins Value Ref 04/27/2024 Estimated RA pressure 15 mm Hg --------- 10 Legend: (L) and (H) kathrin values outside specified reference range. (N) haines values inside specified reference range. Procedure data: Procedure information: A transthoracic echocardiogram was performed. Scanning was performed from the parasternal, apical, and subcostal acoustic windows. Transthoracic echocardiogram. Complete 2D, complete spectral Doppler, and color Doppler. Birthdate: Patient birthdate: 1935. Age: Patient is 89year(s) old. Sex: gender: female. Height: 157.5cm. 62in. Weight: 59.6kg. 131.3lb. Body mass index: 24kg/m^2. Body surface area: 1.6m^2. Study date: Study date: 05/10/2024. Study time: 05:53 AM. Prepared and Electronically Authenticated Wilber Orantes [id number]:39 Procedure Note Wilber Orantes MD - 05/10/2024 [place] [address] [email or web address] Transthoracic Echocardiogram Patient: Stefania Cline Study ID: ECHO LIMITED W C Gender: F : 1935 Age: 89 Race: [facility] Height 157.5cm Study Date: 05/10/2024 Weight: 59.6kg Access. #: [id number] BP: *Referring Physician:* Leena Atkinson Carolyn Anne *Ordering Physician:Leena Pina food demonstrator: Nurse: STUDY CONCLUSIONS: SUMMARY: - Left ventricle: The cavity size was normal. Wall thickness was normal.D shaped septum. Global systolic function is normal. For Epic reporting:the left ventricular ejection fraction is 55% . - Ventricular septum: Paradoxical septal motion. - Left atrium: The atrium is dilated. - Right ventricle: The cavity size is markedly dilated. Systolic functionis reduced. - Right atrium: The atrium was dilated. - Tricuspid valve: Moderate-severe regurgitation. - Pulmonic valve: Moderate regurgitation. - Pulmonary arteries: The peak systolic pressure is 73mm Hg. PASP may be underestimated given severity of TR. Impressions: Limited echo to evaluate RV/LV. Cardiac Anatomy: LEFT VENTRICLE: The cavity size was normal. Wall thickness was normal.Global systolic function is normal. For Epic reporting: the left ventricularejection fraction is 55% . AORTIC VALVE: . The leaflets are mildly thickened. MITRAL VALVE: Structurally normal valve. LEFT ATRIUM: The atrium is dilated. RIGHT VENTRICLE: The cavity size is markedly dilated. Systolic functionis reduced. VENTRICULAR SEPTUM: Paradoxical septal motion. PULMONIC VALVE: Structurally normal valve. Moderate regurgitation. TRICUSPID VALVE: Structurally normal valve. Moderate-severe regurgitation. RIGHT ATRIUM: The atrium was dilated. SYSTEMIC VEINS: Inferior vena cava: The IVC is dilated. PERICARDIUM: There is no pericardial effusion. Measurements Right ventricle Value Ref 04/27/2024 TAPSE, MM (N) 1.7 cm >=1.7 2.0 Pressure, S 73 mm Hg --------- 73 Right atrium Value Ref 04/27/2024 SI dim, ES, A4C (H) 6.3 cm 3.4 - 5.3 6.3 SI dim/bsa, ES, A4C (H) 4.0 cm/m^2 1.9 - 3.1 3.9 Area, ES, A4C (H) 28 cm^2 10 - 18 22 Vol, ES, 1-p A4C 107 ml --------- 67 Vol/bsa, ES, 1-p A4C (H) 67 ml/m^2 9 - 33 42 Pulmonic valve Value Ref 04/27/2024 Peak v, S 1.49 m/sec --------- 1.39 Accel time 40 ms --------- Peak grad, S 9 mm Hg --------- 8 Tricuspid valve Value Ref 04/27/2024 TR peak v (H) 3.8 m/sec <=2.8 4 Peak RV-RA grad, S 58 mm Hg --------- 63 Pulmonary artery Value Ref 04/27/2024 Pressure, S 73 mm Hg --------- Systemic veins Value Ref 04/27/2024 Estimated RA pressure 15 mm Hg --------- 10 Legend: (L) and (H) kathrin values outside specified reference range. (N) haines values inside specified reference range. Procedure data: Procedure information: A transthoracic echocardiogram was performed.Scanning was performed from the parasternal, apical, and subcostal acousticwindows. Transthoracic echocardiogram. Complete 2D, complete spectralDoppler, and color Doppler. Birthdate: Patient birthdate: 1935. Age:Patient is 89year(s) old. Sex: gender: female. Height: 157.5cm. 62in. Weight: 59.6kg. 131.3lb. Body mass index: 24kg/m^2. Body surfacearea: 1.6m^2. Study date: Study date: 05/10/2024. Study time: 05:53 AM. Prepared and Electronically Authenticated Wilber Orantes [id number]:39 us Leena Atkinson MD ORDERABLES Final R esult INTERFACE SYSTEM Refer to clinic/hospital department * XR ABDOMEN FOR FEEDING TUBE 1 VW (05/09/2024 11:50 AM CDT) Only the most recent of2 resultswithin the time period is included. Anatomical Region Laterality Modality Abdomen Computed Radiogr aphy 05/09/2024 12:0 2 PM CDT Impressions 05/09/2024 12:13 PM CDT IMPRESSION: 1. Enteric tube terminates in the left mediastinum and should be repositioned. This may be within a hiatal hernia. DICTATION LOCATION: Location 4 Narrative 05/09/2024 12:13 PM CDT PORTABLE ABDOMEN AP DATE: 05/09/2024 11:50 AM HISTORY: Cor Prieto Placement. Encounter for blood typing, COMPARISON: None. FINDINGS: Enteric tube terminates in the left mediastinum and should be repositioned. This may be within a hiatal hernia. Procedure Note Declan Castro MD - 05/09/2024 PORTABLE ABDOMEN AP DATE: 05/09/2024 11:50 AM HISTORY: Cor Prieto Placement. Encounter for blood typing, COMPARISON: None. FINDINGS: Enteric tube terminates in the left mediastinum and should be repositioned. This may be within a hiatal hernia. IMPRESSION: 1. Enteric tube terminates in the left mediastinum and should be repositioned. This may be within a hiatal hernia. DICTATION LOCATION: Location 4 us Leena Atkinson MD DIAGNOSTIC IMAGING ORDJorge GAY Final Result * US DOPPLER VENOUS ARM RIGHT (05/09/2024 9:03 AM CDT) Anatomical Region Laterality Modality Upper Extremity Ultrasound 05/09/2024 8:27 AM CDT Narrative 05/09/2024 6:40 PM CDT [place] [address] [address] [facility] [place] [address] [email or web address] Venous Exam Limited Upper Extremity Duplex Patient: Stefania Cline Study ID: [id number] Gender: F : 1935 Age: 89 Race: [facility] Height Study Date: 05/09/2024 Weight: Access. #: [id number] *Referring Physician:Leena Pina, Leena Chauhan *Ordering Physician:Leena Pina *Sighter:Marissa Briceño Indications: R/O DVT per ordering provider. History: PMH: No prior study is available for comparison. Study data: New node Study status: Routine. Procedure: A vascular evaluation was performed. Image quality was good. Right upper extremity venous duplex. Doppler flow study including spectral analysis, color and marshall scale imaging. Birthdate: Patient birthdate: 1935. Age: Patient is 89year(s) old. Sex: gender: female. Study date: Study date: 05/09/2024. Study time: 08:27 AM. Location: Vascular laboratory. Patient status: Inpatient. Impressions 1. No evidence of deep vein thrombosis involving the veins of the right upper extremity. 2. Acute superficial vein thrombosis involving the right cephalic vein. Tables: Venous flow: + + + +--------+ !Location !Overall !Flow properties !Thrombus! + + + +--------+ !Right internal !Patent !Phasic; spontaneous; !--------! !jugular - ! !compressible ! ! + + + +--------+ !Right subclavian - !Patent !Phasic; spontaneous; !--------! ! ! !compressible ! ! + + + +--------+ !Right axillary - !Patent !Phasic; spontaneous; normal!--------! ! ! !augmentation; compressible ! ! + + + +--------+ !Right brachial - !Patent !Compressible !--------! + + + +--------+ !Right cephalic - !Totally thrombosed!Noncompressible !Acute ! + + + +--------+ !Right basilic - !Patent !Compressible !--------! + + + +--------+ !Right radial - !Patent !Compressible !--------! + + + +--------+ !Right ulnar - !Patent !Compressible !--------! + + + +--------+ !Left subclavian - !Patent !Phasic; spontaneous; !--------! ! ! !compressible ! ! + + + +--------+ !Left internal !Patent !Phasic; spontaneous; !--------! !jugular - ! !compressible ! ! + + + +--------+ *Velocities are expressed in cm/s, Diameters are expressed in mm Prepared and Electronically Authenticated Andrei Patel M.D. [id number]:17 Procedure Note Andrei Patel MD - 05/09/[address] [address] [email or web address] Venous Exam Limited Upper Extremity Duplex Patient: Stefania Cline Study ID: [id number] Gender: F : 1935 Age: 89 Race: [facility] Height Study Date: 05/09/2024 Weight: Access. #: [id number] *Referring Physician:Leena Pina CarolynAnne *Ordering Physician:Leena Pina *Sighter:Marissa Briceño Indications: R/O DVT per ordering provider. History: PMH: No prior study is available for comparison. Study data: New node Study status: Routine. Procedure: A vascular evaluation was performed. Image quality was good. Right upperextremity venous duplex. Doppler flow study including spectral analysis, colorand marshall scale imaging. Birthdate: Patient birthdate: 1935. Age:Patient is 89year(s) old. Sex: gender: female. Study date: Study date: 05/09/2024. Study time: 08:27 AM. Location: Vascular laboratory.Patient status: Inpatient. Impressions 1. No evidence of deep vein thrombosis involving the veins of the rightupper extremity. 2. Acute superficial vein thrombosis involving the right cephalic vein. Tables: Venous flow: + + + +--------+ !Location !Overall !Flow properties!Thrombus! + + + +--------+ !Right internal !Patent !Phasic; spontaneous;!--------! !jugular - ! !compressible !! + + + +--------+ !Right subclavian - !Patent !Phasic; spontaneous;!--------! ! ! !compressible !! + + + +--------+ !Right axillary - !Patent !Phasic; spontaneous;normal!--------! ! ! !augmentation; compressible !! + + + +--------+ !Right brachial - !Patent !Compressible!--------! + + + +--------+ !Right cephalic - !Totally thrombosed!Noncompressible !Acute! + + + +--------+ !Right basilic - !Patent !Compressible!--------! + + + +--------+ !Right radial - !Patent !Compressible!--------! + + + +--------+ !Right ulnar - !Patent !Compressible!--------! + + + +--------+ !Left subclavian - !Patent !Phasic; spontaneous;!--------! ! ! !compressible !! + + + +--------+ !Left internal !Patent !Phasic; spontaneous;!--------! !jugular - ! !compressible !! + + + +--------+ *Velocities are expressed in cm/s, Diameters are expressed in mm Prepared and Electronically Authenticated Andrei Patel M.D. [id number]:17 us Leena Atkinson MD US ORDERABLES Final R esult * (ABNORMAL) BRAIN NATRIURETIC PEPTIDE, BNP OR PROBNP (05/09/2024 4:57 AM CDT) PROBNP, N TERMINAL 22,386(H) <449 pg/mL 05/09/2024 7:45 AM CDT [facility] Comment: INTERPRETIVE COMMENT based on diagnosis: Diagnostic NT pro-BNP cutoffs for Heart Failure in the absence of renal failure is suggested for the following ranges <75 years: <125 pg/mL >=75 years: <450 pg/mL Exclusionary rule out cut-point for Acute Decompensated Heart Failure(ADHF) All ages: <300 pg/mL Diagnostic NT pro-BNP cutoffs for Acute Decompensated Heart Failure(ADHF) in the absence of renal failure is suggested for the following ages <50 years: > 450 pg/mL 50-75 years: > 900 pg/mL >75 years: >1800 pg/mL Blood Venipuncture / Unknown 05/09/2024 4:57 AM CDT 05/09/2024 5:30 AM CDT Leena Atkinson MD CHEMISTRY ORDERABLES Fi nal Result [facility] [id number] [address] [place] [address] * PERIPHERAL BLOOD SMEAR PATHOLOGY INTERP (05/08/2024 4:14 AM CDT) Pathologist [facility] PERIPHERAL BLOOD SMEAR INTERP See Pathology Report to Follow 05/08/2024 9:37 AM CDT [facility] Blood Venipuncture / Unknown 05/08/2024 4:14 AM CDT 05/08/2024 4:21 AM CDT Carlton Gill MD HEMATOLOGY ORDERABLES Final Resu lt [facility] CLIA# [id number] [address] [facility] [place] [address] [address] * PATHOLOGY (05/08/2024 4:14 AM CDT) CASE REPORT Surgical Pathology Report Case: [id number] Authorizing Provider: Carlton Gill MD Collected: 05/08/2024 04:14 AM Ordering Location: [facility] Received: 05/08/2024 09:38 AM 476 Med Surg ICU Pathologist: Lorri Duran MD Specimen: Peripheral Blood Smear 2:16 PM CDT [facility] FINAL DIAGNOSIS Peripheral blood smear, morphologic review: -Leukocytosis with granulocytosis and left shifted myeloid cells. -Hypochromic, microcytic anemia and thrombocytopenia. -No evidence of overt dyspoiesis or blast. 2:16 PM CDT [facility] at 1416 CDT MICROSCOPIC DESCRIPTION The slides are labeled [id number] and Stefania Cline. Review of the peripheral blood smear confirms leukocytosis with granulocytosis, hypochromic, microcytic anemia and thrombocytopenia detected by CBC data. There is left shifted myeloid cells. No blast is identified. There is no evidence of overt dyspoiesis. The red blood cells show anisopoikilocytosis including elliptocytes, crenated cells, polychromasia and teardrop cells. Platelets are mainly normal morphologically. 2:16 PM CDT [facility] CLINICAL INFORMATION No Dx found. 2:16 PM CDT [facility] COMMENT Special stain, immunohistochemical, and/or in situ hybridization results are interpreted with controls that demonstrate appropriate staining reactions. Note on use of immunohistochemistry reagents and in situ hybridization probes: These tests were developed and their performance characteristics determined by [facility], Department of Laboratory Medicine. It has not been cleared or approved by the U.S. Food and Drug Administration. The FDA has determined that such clearance or approval is not necessary. The test is used for clinical purposes. It should not be regarded as investigational or for research. This laboratory is certified to perform high complexity testing. Frozen section/operating room consultation, gross examination and dissection, and case sign out may have been performed in part or completely in the following laboratories: [facility], CLIA #[id number] [address] [place] [address] [facility], CLIA #[id number] [address] [place] [address] [facility], CLIA #[id number] [address] [place] [address] 2:16 PM CDT [facility] Tissue (Peripheral Blood Smear) 05/08/2024 4:14 AM CDT 05/08/2024 9:38 AM CDT Carlton Gill MD PATHOLOGY/CYTOLOGY ORDERABLES Fi nal Result Performing Organization Address [facility]/ZIP Co de Phone Number [facility]# [id number] [address] [place] [address] [place] [address] * VANCOMYCIN LEVEL TROUGH (05/07/2024 3:42 PM CDT) VANCOMYCIN, TROUGH 17.0 10.0 - 17.0 ug/mL 05/07/2024 4:43 PM CDT [facility] Blood Collection / Unknown 05/07/2024 3:42 PM CDT 05/07/2024 3:53 PM CDT Narrative [facility] - 05/07/2024 4:43 PM CDT Vancomycin Trough Therapeutic Range = 10.0 - 20.0 ug/mL Vancomycin Trough Toxic Level = >25.0 ug/mL Omer Hughes DO CHEMISTRY ORDERABLES Final Re sult [facility]# [id number] [address] [facility] [place] [address] * (ABNORMAL) PNEUMONIA PATHOGEN PCR PANEL (05/06/2024 6:22 PM CDT) Human Rhinovirus/En terovirus by PCR DETECTED( A) Not Detected 05/06/2024 10:31 PM CDT [facility] Sputum COUGHED SPUTUM SPECIMEN / Unknown Collection / Unknown 05/06/2024 6:22 PM CDT 05/06/2024 6:41 PM CDT [facility] - 05/06/2024 10:31 PM CDT A negative result does not exclude the possibility of infection. A semi-quantitative (copies/mL) result is provided for bacteria. This panel does not distinguish between nucleic acid from live or bacteria or virus. Culture is needed for recovery of bacterial isolates and antimicrobial susceptibility testing. The Film Array Pneumonia Pathogen PCR Panel is a multiplexed nucleic acid detection test for 33 targets of bacteria, viruses, and resistance markers in respiratory specimens that cause pneumonia. Bacteria: Acinetobacter calcoaceticus-baumannii complex Enterobacter cloacae complex Escherichia coli Haemophilus influenzae Klebsiella aerogenes Klebsiella oxytoca Klebsiella pneumoniae group Moraxella catarrhalis Proteus spp. Pseudomonas aeruginosa Serratia marcescens Staphylococcus aureus Streptococcus agalactiae Streptococcus pneumoniae Streptococcus pyogenes Atypical Bacteria: Chlamydia pneumoniae Legionella pneumophila Mycoplasma pneumoniae Viruses: Adenovirus Coronavirus (229E, OC43, HKU1, NL63) Human Metapneumovirus Human Rhinovirus/Enterovirus Influenza A Influenza B Parainfluenza Virus Respiratory Syncytial Virus Antimicrobial Resistance Genes: CTX-M IMP KPC NDM OXA-48-like VIM mecA/C and MREJ Lew Lema DO MICROBIOLOGY - GENERAL ORDER MAGDA Final Result [facility]# [id number] [address] [place] [id number] * SPUTUM CULTURE WITH GRAM STAIN (05/06/2024 6:22 PM CDT) Pathologist [facility] CULTURE No pathogens isolated. Normal respiratory eugenia absent. 05/09/2024 10:05 AM CDT [facility] GRAM STAIN Non diagnostic pattern 05/09/2024 10:05 AM CDT [facility] GRAM STAIN 3+ (Moderate) Polymorphonuclear WBC 05/09/2024 10:05 AM CDT [facility] Sputum COUGHED SPUTUM SPECIMEN / Unknown Collection / Unknown 05/06/2024 6:22 PM CDT 05/06/2024 6:41 PM CDT Lew Lema DO MICROBIOLOGY - GENERAL ORDER MAGDA Final Result [facility] CLIA# [id number] [address] [place] [address] * (ABNORMAL) WOUND (AEROBIC) CULTURE WITH GRAM STAIN (05/06/2024 12:57 PM CDT) Only the most recent of2 resultswithin the time period is included. CULTURE STAPHYLOCOCCUS AUREUS(A) KT MCG/ML 05/08/2024 9:56 AM CDT [facility] GRAM STAIN 4+ (Heavy) Polymorphonuclear WBC 05/08/2024 9:56 AM CDT [facility] GRAM STAIN 2+ (Few) Gram positive cocci 05/08/2024 9:56 AM CDT [facility] Wound (Leg, right) Collection / Unknown 05/06/2024 12:57 PM CDT 05/06/2024 1:01 PM CDT Narrative Organism Antibiotic Method Susceptibility Staphylococcus aureus OXACILLIN (Nafcillin) KT MCG/ML 0.5 mcg/mL: Susceptible Comment:Oxacillin (N afcillin) susceptible Staphylococcus species are predictably susceptible to cefazolin, ceftriaxone, cephalexin, and amoxicillin-clavulanate Staphylococcus aureus VANCOMYCIN KT MCG/ML <=0.5 mcg/mL: Susceptible Staphylococcus aureus CLINDAMYCIN KT MCG/ML 0.25 mcg/mL: Susceptible Staphylococcus aureus DOXYCYCLINE KT MCG/ML <=0.5 mcg/mL: Susceptible Staphylococcus aureus TRIMETHOPRIM/ SULFAMETHOXAZOLE KT MCG/ML <=10 mcg/mL: Susceptible Staphylococcus aureus RIFAMPIN KT MCG/ML <=0.5 mcg/mL: Susceptible Comment:Rifampin kalyani uld NOT be used alone for antimicrobial therapy. Carlton Gill MD MICROBIOLOGY - GENERAL ORDERABLE S Final Result [facility] Baileyu [facility]# [id number] [address] [place] [address] * (ABNORMAL) PROCALCITONIN (05/06/2024 10:24 AM CDT) Only the most recent of2 resultswithin the time period is included. PROCALCITONIN 0.33(H) <=0.25 ng/mL 05/06/2024 11:27 AM CDT [facility] Blood Venipuncture / Unknown 05/06/2024 10:24 AM CDT 05/06/2024 10:38 AM CDT Narrative [facility] Baileyu [facility] - 05/06/2024 11:27 AM CDT The utility of procalcitonin is limited/NOT recommended in certain populations (e.g. newborns, dialysis/ESRD, patients with recent major surgery/trauma/peterson, liver cirrhosis, viral hepatitis, certain cancers, etc.). Procalcitonin levels MUST be interpreted in the context of the patient's clinical condition and CANNOT be solely relied upon for diagnosis of infection. <0.25 ng/mL: Bacterial infection unlikely, particularly lower respiratory tract infections. <0.5 ng/mL: Low risk for progression to severe sepsis/septic shock. Localized infection possible. Measurements done early (<6 hours) after systemic process starts may still be low. 0.5-2 ng/mL: Moderate risk for progression to severe sepsis/septic shock. >2 ng/mL: High risk for progression to severe sepsis/septic shock. If antibiotics ARE administered, repeat testing is recommended every 2-3 days to help guide antibiotic cessation. Once a decrease of 80% or more has occurred from baseline, discontinuation of antibiotics should strongly be considered in clinically stable patients. Procalcitonin is produced in the setting of systemic inflammation, particularly bacterial infections. It is detectable within 2-4 hours and peaks within 6-24 hours. us Lew Lema DO CHEMISTRY ORDERABLES Final R esult Performing Organization Address [facility]/ZIP Co de Phone Number [facility]# [id number] [address] [place] [address] * (ABNORMAL) C-REACTIVE PROTEIN (05/06/2024 4:58 AM CDT) Only the most recent of3 resultswithin the time period is included. [facility] [address] CRP 39.1(H) <5.0 mg/L 05/06/2024 9:36 AM CDT [facility] Blood Venipuncture / Unknown 05/06/2024 4:58 AM CDT 05/06/2024 5:51 AM CDT Lew Begum Torey DO CHEMISTRY ORDERABLES Final [facility] Performing Organization Address [facility] Co de Phone Number [facility]# [id number] [address] [place] [address] * (ABNORMAL) MRSA PCR RAPID SCREEN (05/05/2024 10:21 AM CDT) Only the most recent of2 resultswithin the time period is included. [facility] [address] MRSA PCR RESULT MRSA detected( A) MRSA not detected 05/05/2024 12:43 PM CDT [facility] Surveillance ANTERIOR NARES SWAB / Unknown Collection / Unknown 05/05/2024 10:21 AM CDT 05/05/2024 10:41 AM CDT Narrative [facility] - 05/05/2024 12:43 PM CDT Results called to SARAH Mccarty on 05/05/2024 at 12:42 PM and read back verified. This assay is used to detect Methicillin-Resistant S. aureus (MRSA) colonization of the nares. PLEASE NOTE: This test has not been approved to monitor effectiveness of MRSA decolonization. Residual DNA may temporarily be present after successful decolonization. This test was performed using an FDA approved screening methodology. Lew Lema DO MICROBIOLOGY - GENERAL ORDER MAGDA Final Result [facility]# [id number] [address] [place] [place] [address] * (ABNORMAL) BLOOD GAS VENOUS (05/05/2024 8:47 AM CDT) Only the most recent of3 resultswithin the time period is included. PH, VENOUS 7.31(L) 7.32 - 7.43 05/05/2024 9:07 AM [facility] PCO2 VENOUS 52(H) 38 - 50 mm Hg 05/05/2024 9:07 AM [facility] PO2 VENOUS 84(H) 25 - 40 mm Hg 05/05/2024 9:07 AM [facility] HCO3 VENOUS 25 22 - 29 mmol/L 9:07 AM [facility] BASE EXCESS VENOUS -0.5 Reference Range Not Established mmol/L 05/05/2024 9:07 AM [facility] HEMOGLOBIN VENOUS 7.0 No Ref Range Estab g/dL 05/05/2024 9:07 AM [facility] O2 SAT EST VENOUS 97(H) 40 - 70 % 05/05/2024 9:07 AM [facility] OXYGEN MODE BIPAP/CPA P 05/05/2024 9:07 AM [facility] FIO2 30.0 21.0 - 100.0 % 05/05/2024 9:07 AM [facility] Blood, venous Venipuncture / Unknown 05/05/2024 8:47 AM CDT 05/05/2024 8:58 AM CDT Dolores Ma MD ABG ORDERABLES Final R esult [facility] CLIA# [id number] [address] [place] [address] * LACTIC ACID (05/04/2024 6:36 PM CDT) Only the most recent of4 resultswithin the time period is included. LACTIC ACID 1.5 <=2.0 mmol/L 05/04/2024 7:23 PM CDT [facility] Blood Venipuncture / Unknown 05/04/2024 6:36 PM CDT 05/04/2024 6:44 PM CDT Lew Lema DO CHEMISTRY ORDERABLES Final R esult Performing Organization Address City/[facility]/ZIP Co de Phone Number [facility] - [facility]# [id number] [address] [place] [address] * PREPARE RED BLOOD CELLS (05/04/2024 6:07 PM CDT) Only the most recent of5 resultswithin the time period is included. COMPONENT TYPE [id number] [facility] COMPONENT IDENTIFICATION [id number] [facility] UN[facility] ABO O [facility] RH POS [facility] -- [facility] CROSSMATCH Compatible [facility] COMPONENT STATUS Returned [facility] COMPONENT EXPIRATION DATE/TIME [id number] [facility] COMPONENT CODING SYSTEM 5100 [facility] -- [facility] VOLUME, BLOOD PRODUCT 350 [facility] -- [facility] Other, specify 05/04/2024 6: 07 PM CDT Lew Lema DO LAB TRANSFUSION ORDERABLES E dited Result - Final [facility] -- .[facility]# [id number] [address] [place] [address] * TRANSFUSE RED BLOOD CELLS (05/04/2024 4:23 PM CDT) Only the most recent of4 resultswithin the time period is included. Dolores Ma MD BLOOD TRANSFUSION ORDER MAGDA Final Result * INFLUENZA A/B, RSV AND COVID-19 PCR PANEL (05/04/2024 10:44 AM CDT) [facility] [address] COVID-19 PCR NOT DETECTED Not Detected 05/05/19 12:09 PM CDT [facility] Influenza A by PCR NOT DETECTED Not Detected 05/04/2024 12:09 PM CDT [facility] Influenza B by PCR NOT DETECTED Not Detected 05/04/2024 12:09 PM CDT [facility] RSV by PCR NOT DETECTED Not Detected 05/04/2024 12:09 PM CDT [facility] Upper Respiratory ENTIRE NASOPHARYNX / Unknown Collection / Unknown 05/04/2024 10:44 AM CDT 05/04/2024 10:52 AM CDT Narrative [facility] - 05/04/2024 12:09 PM CDT This test has been authorized by the FDA under an Emergency Use Authorization for use by authorized laboratories. This test has been validated in accordance with the FDA's guidance regarding Coronavirus Disease-2019 testing. Optimum specimen types and timing for peak viral levels during infection have not been determined. A negative RT-PCR result does not rule out infection with the 2019-Novel Coronavirus. Lew Lema DO MICROBIOLOGY - GENERAL ORDER MAGDA Final Result [facility]# [id number] [address] [facility] [address] [address] * TYPE AND SCREEN (05/04/2024 9:24 AM CDT) Only the most recent of3 resultswithin the time period is included. Pathologist [facility] ABO GROUP O 05/04/2024 3:08 PM CDT [facility] -- [facility] RH (D) TYPE Positive 05/04/2024 3:08 PM CDT [facility] -- .[facility] ANTIBODY SCREEN Negative 05/04/2024 3:08 PM CDT [facility] -- [facility] Blood Venipuncture / Unknown 05/04/2024 9:24 AM CDT 05/04/2024 9:29 AM CDT Dolores Ma MD BLOOD BANK ORDERABLES E dited Result - Final [facility] -- [facility] CLIA# [id number] [address] [place] [address] * (ABNORMAL) CALCIUM IONIZED (05/04/2024 7:50 AM CDT) Only the most recent of9 resultswithin the time period is included. PH, VENOUS 7.24(L) 7.32 - 7.43 05/04/2024 8:07 AM CDT [facility] CALCIUM IONIZED 4.5(L) 4.8 - 5.2 mg/dL 05/04/2024 8:07 AM CDT [facility] Blood Venipuncture / Unknown 05/04/2024 7:50 AM CDT 05/04/2024 7:54 AM CDT Carolyn Dueñas DO CHEMISTRY ORDERABLES Fin al Result [facility] CLAR# [id number] [address] [place] [address] * (ABNORMAL) HEMOGLOBIN AND HEMATOCRIT (05/03/2024 5:49 PM CDT) Only the most recent of9 resultswithin the time period is included. HEMOGLOBIN 7.0(L) 11.8 - 14.8 g/dL 05/03/2024 6:21 PM CDT [facility] HEMATOCRIT 23.1(L) 35.5 - 44.0 % 05/03/2024 6:21 PM CDT [facility] Blood Venipuncture / Unknown 05/03/2024 5:49 PM CDT 05/03/2024 5:49 PM CDT Mike DAVIES HEMATOLOGY ORDERABL ES Final Result Performing Organization Address [facility]/State/ZIP Co de Phone Number [facility] CLIA# [id number] [address] [place] [address] * BLOOD CULTURE (05/03/2024 3:36 PM CDT) Only the most recent of2 resultswithin the time period is included. BLOOD CULTURE No growth 05/08/2024 9:45 PM CDT [facility] Blood (Peripheral) Venipuncture / Unknown 05/03/2024 3:36 PM CDT 05/03/2024 3:36 PM CDT Narrative [facility] - 05/08/2024 9:45 PM CDT Specimen processed with suboptimal blood volume collected. 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 PLAN/RECOMMENDATIONS: Recommend referral to interventional radiology for filter retrieval once it is no longer indicated to prevent long-term complications.. Narrative 05/02/2024 4:27 PM CDT PROCEDURE/EXAM(S): 1. INFERIOR VENA CAVA FILTER PLACEMENT. TIME/DATE: 05/02/2024 4:02 PM. DICTATION LOCATION: Location [address] [place] [address] PHYSICIANS: Maryellen Degroot MD. CLINICAL INFORMATION/INDICATION: Female of 89 years age with PE, Deep Vein Thrombosis Encounter for blood typing with contraindication to anticoagulation requires IVC filter placement. CONSENT: The indications, procedures, benefits, and risks (including but not limited to infection, vascular damage, bleeding, filter embolization, filter malpositioning, filter fragmentation, and complications of chronic filter placement) were discussed and informed consent was obtained for the medical record per protocol. SEDATION: None. TECHNIQUE/FINDINGS: Patient identification and preprocedural timeout was performed per protocol. Maximum sterile barrier technique was utilized for all aspects of the procedure. The central veins were evaluated by ultrasound and image(s) were recorded into the medical record. Ultrasound image(s) showed a patent right femoral vein. The overlying subcutaneous tissues were infiltrated with local anesthetic and the aforementioned vein was accessed with a 21 gauge needle using realtime ultrasound guidance. Utilizing and transitional dilator, a guidewire was passed into the inferior vena cava using fluoroscopic guidance. The filter delivery sheath was advanced into the inferior vena cava and positioned near the iliac vein confluence. An inferior venacavogram was obtained. The inferior venacavogram showed a patent inferior vena cava, the position of the renal veins, and no relevant anatomic anomalies. A Argon Option inferior vena cava filter was appropriately positioned and deployed in the infrarenal IVC. The final fluoroscopic image(s) show a well positioned infrarenal inferior vena cava filter. At the end of the procedure, the filter delivery sheath was removed, hemostasis was obtained by manual compression, and a sterile dressing was applied. The patient tolerated the procedure well. FLUOROSCOPY TIME / EXPOSURE: 0.1 minutes / 1 mGy (Ka,r). ESTIMATED BLOOD LOSS: < 5 cc. COMPLICATIONS: None. Procedure Note Maryellen Degroot MD - 05/02/2024 PROCEDURE/EXAM(S): 1. INFERIOR VENA CAVA FILTER PLACEMENT. TIME/DATE: 05/02/2024 4:02 PM. DICTATION LOCATION: Location [address] [place] [address] PHYSICIANS: Maryellen Degroot MD. CLINICAL INFORMATION/INDICATION: Female of 89 years age with PE, Deep Vein Thrombosis Encounter for blood typing with contraindication to anticoagulation requires IVC filter placement. CONSENT: The indications, procedures, benefits, and risks (including but not limited to infection, vascular damage, bleeding, filter embolization, filter malpositioning, filter fragmentation, and complications of chronic filter placement) were discussed and informed consent was obtained for the medical record per protocol. SEDATION: None. TECHNIQUE/FINDINGS: Patient identification and preprocedural timeout was performed per protocol. Maximum sterile barrier technique was utilized for all aspects of the procedure. The central veins were evaluated by ultrasound and image(s) were recorded into the medical record. Ultrasound image(s) showed a patent right femoral vein. The overlying subcutaneous tissues were infiltrated with local anesthetic and the aforementioned vein was accessed with a 21 gauge needle using realtime ultrasound guidance. Utilizing and transitional dilator, a guidewire was passed into the inferior vena cava using fluoroscopic guidance. The filter delivery sheath was advanced into the inferior vena cava and positioned near the iliac vein confluence. An inferior venacavogram was obtained. The inferior venacavogram showed a patent inferior vena cava, the position of the renal veins, and no relevant anatomic anomalies. A Argon Option inferior vena cava filter was appropriately positioned and deployed in the infrarenal IVC. The final fluoroscopic image(s) show a well positioned infrarenal inferior vena cava filter. At the end of the procedure, the filter delivery sheath was removed, hemostasis was obtained by manual compression, and a sterile dressing was applied. The patient tolerated the procedure well. FLUOROSCOPY TIME / EXPOSURE: 0.1 minutes / 1 mGy (Ka,r). ESTIMATED BLOOD LOSS: < 5 cc. COMPLICATIONS: None. IMPRESSION: Successful infrarenal inferior vena cava filter placement. PLAN/RECOMMENDATIONS: Recommend referral to interventional radiology for filter retrieval once it is no longer indicated to prevent long-term complications.. us Taylor Rivas MD IR ORDERABLES Final Res ult * TEG-TRAUMA (05/02/2024 1:40 AM CDT) [facility] [address] CITRATED KAOLIN REACTION TIME (CK-R) 8.0 4.6 - 9.1 min 05/02/2024 3:[facility] CIT[facility] RAPID MAXIMUM AMPLITUDE (APPLICATION INTEGRATION ENGINEER-MA) 60.0 52.0 - 70.0 mm 05/02/2024 3:13 AM CDT [facility] CITRATE FUNCTIONAL FIBRINOGEN MAXIMUM AMPLITUDE (CF 20.1 15.0 - 32.0 mm 05/02/2024 3:13 AM T [facility] LY30(LYSIS) 0.0 0.0 - 3.0 % 05/02/2024 3:13 AM CDT [facility] Blood Venipuncture / Unknown 05/02/2024 1:40 AM CDT 05/02/2024 1:50 AM CDT us Janett Charles PA-C HEMATOLOGY ORDERABLE S Final Result [facility] CLIA# [id number] [address] [facility] [place] [address] * CT ABDOMEN PELVIS W CONTRAST (05/01/2024 11:10 PM CDT) Anatomical Region Laterality Modality Abdomen Computed Tomogra phy 05/01/2024 10:5 8 PM CDT Impressions 05/02/2024 12:01 AM CDT IMPRESSION: 1. Large left psoas hematoma with active extravasation. 2. Acute pulmonary emboli within segmental and subsegmental branches of the right middle and lower lobes in keeping with history of pulmonary embolism. The imaged pulmonary arteries are enlarged and the right heart is dilated in keeping with right heart strain. 3. Small bilateral pleural effusions. 4. Cholelithiasis. 5. 10 mm nonobstructing left renal calculus. 6. Mild enlargement of the endometrial canal, which is not specific. Recommend correlation with any history of abnormal uterine bleeding and consider pelvic ultrasound as indicated. The above critical results were discussed with Raegan Acuna RN by Dr. Turner on 05/01/2024 at 23:57 DICTATION LOCATION: Location 4 Narrative 05/02/2024 12:01 AM CDT EXAMINATION: CT ABDOMEN PELVIS W CONTRAST DATE: 05/01/2024 11:10 PM HISTORY: Abdominal pain, acute, nonlocalized. Encounter for blood typing TECHNIQUE: Computed tomography of the abdomen and pelvis was performed following the uneventful administration of intravenous contrast (IOPAMIDOL 61 % INTRAVENOUS SOLUTION (MULTI-DOSE BULK PACK) Given:80 mL) according to standard protocol. The examination was performed with the adjustment of mA according to the patient size and/or the use of Iterative Reconstruction Technique. CT Dose Length Product (DLP): 1152 mGy*cm COMPARISON: None available FINDINGS: The imaged heart is enlarged, particularly the right jugular and right atrium. The main pulmonary artery and right pulmonary artery are partially imaged but they are also markedly enlarged. There are filling defects within segmental and subsegmental right middle and lower lobe pulmonary arteries in keeping with history of pulmonary medicine. Partially imaged coronary artery calcifications. There is a moderate hiatal hernia. Small bilateral pleural effusions are partially imaged. Mild consolidative and groundglass opacities in the lung bases likely represent atelectasis. No suspicious hepatic lesion. There is cholelithiasis without evidence of acute cholecystitis. There is minimal intrahepatic and extra hepatic bile duct dilatation, which tapers gradually to the ampulla and likely represents senescent changes. A duodenal diverticulum is present. The pancreas is mildly atrophic without dilatation of the main pancreatic duct. Spleen is normal. There is no adrenal mass or nodule. The kidneys enhance symmetrically. There is no hydronephrosis. There are small bilateral renal cysts. There is a nonobstructive left renal calculus measuring 10 mm. There is contrast within the nondistended urinary bladder. The uterus is present. There is mild enlargement of the endometrial canal in the fundus (series 3, image eight). No suspicious adnexal mass. Small volume ascites. No pneumoperitoneum. Colonic diverticulosis without evidence of acute diverticulitis. The large and small bowel are normal in caliber without evidence of obstruction. The portal, splenic and superior mesenteric veins are patent. The abdominal aorta is markedly atherosclerotic but not aneurysmal. No high-grade stenoses of the celiac or superior mesenteric arteries. The renal arteries are similarly patent. No significant stenosis in the iliac or imaged femoral arteries. No pathologically enlarged lymph nodes in the abdomen or pelvis. There is a large left psoas muscle hematoma with multiple foci of arterial hyperenhancement compatible with active extravasation. These can be seen to best effect on series 3, images 477 and 429 and 383. The size of the hematoma is approximately 4.6 x 4.8 x 15.1 cm. There is diffuse body wall edema. Multilevel degenerative changes of the spine with mild S-shaped curvature of the imaged thoracolumbar spine. No suspicious lytic or blastic lesion. Procedure Note Ketan Turner MD - 05/02/2024 EXAMINATION: CT ABDOMEN PELVIS W CONTRAST DATE: 05/01/2024 11:10 PM HISTORY: Abdominal pain, acute, nonlocalized. Encounter for blood typing TECHNIQUE: Computed tomography of the abdomen and pelvis was performed following the uneventful administration of intravenous contrast (IOPAMIDOL 61 % INTRAVENOUS SOLUTION (MULTI-DOSE BULK PACK) Given:80 mL) according to standard protocol. The examination was performed with the adjustment of mA according to the patient size and/or the use of Iterative Reconstruction Technique. CT Dose Length Product (DLP): 1152 mGy*cm COMPARISON: None available FINDINGS: The imaged heart is enlarged, particularly the right jugular and right atrium. The main pulmonary artery and right pulmonary artery are partially imaged but they are also markedly enlarged. There are filling defects within segmental and subsegmental right middle and lower lobe pulmonary arteries in keeping with history of pulmonary medicine. Partially imaged coronary artery calcifications. There is a moderate hiatal hernia. Small bilateral pleural effusions are partially imaged. Mild consolidative and groundglass opacities in the lung bases likely represent atelectasis. No suspicious hepatic lesion. There is cholelithiasis without evidence of acute cholecystitis. There is minimal intrahepatic and extra hepatic bile duct dilatation, which tapers gradually to the ampulla and likely represents senescent changes. A duodenal diverticulum is present. The pancreas is mildly atrophic without dilatation of the main pancreatic duct. Spleen is normal. There is no adrenal mass or nodule. The kidneys enhance symmetrically. There is no hydronephrosis. There are small bilateral renal cysts. There is a nonobstructive left renal calculus measuring 10 mm. There is contrast within the nondistended urinary bladder. The uterus is present. There is mild enlargement of the endometrial canal in the fundus (series 3, image eight). No suspicious adnexal mass. Small volume ascites. No pneumoperitoneum. Colonic diverticulosis without evidence of acute diverticulitis. The large and small bowel are normal in caliber without evidence of obstruction. The portal, splenic and superior mesenteric veins are patent. The abdominal aorta is markedly atherosclerotic but not aneurysmal. No high-grade stenoses of the celiac or superior mesenteric arteries. The renal arteries are similarly patent. No significant stenosis in the iliac or imaged femoral arteries. No pathologically enlarged lymph nodes in the abdomen or pelvis. There is a large left psoas muscle hematoma with multiple foci of arterial hyperenhancement compatible with active extravasation. These can be seen to best effect on series 3, images 477 and 429 and 383. The size of the hematoma is approximately 4.6 x 4.8 x 15.1 cm. There is diffuse body wall edema. Multilevel degenerative changes of the spine with mild S-shaped curvature of the imaged thoracolumbar spine. No suspicious lytic or blastic lesion. IMPRESSION: 1. Large left psoas hematoma with active extravasation. 2. Acute pulmonary emboli within segmental and subsegmental branches of the right middle and lower lobes in keeping with history of pulmonary embolism. The imaged pulmonary arteries are enlarged and the right heart is dilated in keeping with right heart strain. 3. Small bilateral pleural effusions. 4. Cholelithiasis. 5. 10 mm nonobstructing left renal calculus. 6. Mild enlargement of the endometrial canal, which is not specific. Recommend correlation with any history of abnormal uterine bleeding and consider pelvic ultrasound as indicated. The above critical results were discussed with Raegan Acuna RN by Dr. Turner on 05/01/2024 at 23:57 DICTATION LOCATION: Location 4 us Taylor Rivas MD CT ORDERABLES Final Res ult * XR HIP 1 VW LEFT (05/01/2024 7:59 PM CDT) Anatomical Region Laterality Modality Lower Extremity Left Computed Radiogr aphy 05/01/2024 7:59 PM CDT Impressions 05/01/2024 8:35 PM CDT IMPRESSION: 1. No acute fractures identified 2. Mild degenerative changes in both hips. DICTATION LOCATION: Location 4 Narrative 05/01/2024 8:35 PM CDT XR HIP 1 VW LEFT DATE: 05/01/2024 7:59 PM HISTORY: Pain TECHNIQUE: Two views of the left hip COMPARISON: None FINDINGS: The visible pelvic ring is intact with no acute fracture identified. The hips are located. Mild degenerative changes within both hips. No acute fracture of the hip visualized. Procedure Note Omer Lawrence MD - 05/01/2024 XR HIP 1 VW LEFT DATE: 05/01/2024 7:59 PM HISTORY: Pain TECHNIQUE: Two views of the left hip COMPARISON: None FINDINGS: The visible pelvic ring is intact with no acute fracture identified. The hips are located. Mild degenerative changes within both hips. No acute fracture of the hip visualized. IMPRESSION: 1. No acute fractures identified 2. Mild degenerative changes in both hips. DICTATION LOCATION: Location 4 us Taylor Rivas MD DIAGNOSTIC IMAGING ORDERA BLES Final Result * US ARTERIAL W SEGMENTAL PRESS LOWER EXT (04/29/2024 10:21 AM CDT) Anatomical Region Laterality Modality Lower Extremity Ultrasound Impressions 04/30/2024 10:54 AM CDT : Bilateral ABIs within normal limits at rest with slightly elevated right above normal limits. However, bilateral ABIs are likely falsely elevated in the setting of poorly compressible tibial vessels. Bilateral toe pressures indicate adequate arterial perfusion for wound healing. Bilateral lower extremities demonstrate multiphasic segmental arterial waveforms extending into the tibial vessels. JEAN/dave - transcribed in Epic - Narrative 04/30/2024 10:54 AM CDT BILATERAL LOWER EXTREMITY NONINVASIVE ARTERIAL STUDY WITHOUT EXERCISE TESTING DATE OF STUDY: 04/29/2024 Highest brachial artery pressure on the right at 87 mmHg. Highest right ankle pressure 130 mmHg at dorsalis pedis artery distribution. Right posterior tibial artery noncompressible. Left posterior tibial artery noncompressible. Highest left ankle pressure 103 mmHg at peroneal artery distribution. Right OSEI 1.49. Left OSEI 1.18. Right toe pressure is 85 mmHg and left toe pressure is 81 mmHg. Bilateral femoral, popliteal and tibial segmental arterial waveforms are multiphasic in nature. us Lalo Farley MD US ORDERABLES Final Re sult * (ABNORMAL) HEMOGLOBIN A1C (04/29/2024 4:32 AM CDT) HEMOGLOBIN A1C 6.3(H) <5.7 % 04/29/2024 3:29 PM CDT [facility] EST. AVG GLUCOSE, A1C 134 mg/dL 04/29/2024 3:29 PM CDT [facility] Blood Venipuncture / Unknown 04/29/2024 4:32 AM CDT 04/29/2024 4:54 AM CDT Narrative [facility] - 04/29/2024 3:29 PM CDT HGB A1C INTERPRETATION NORMAL: <5.7% PRE-DIABETES: 5.7 - 6.4% DIABETES: 6.5% OR GREATER us Taylor Rivas MD CHEMISTRY ORDERABLES Cindy l Result Performing Organization Address City/[facility]/ZIP Co de Phone Number [facility] CLIA# [id number] [address] [place] [address] * CK (04/28/2024 5:28 AM CDT) Pathologist [facility] CK 33 20 - 180 U/L 04/28/2024 10:20 AM CDT [facility] Blood Venipuncture / Unknown 04/28/2024 5:28 AM CDT 04/28/2024 5:34 AM CDT us Kathy Guerrero MD CHEMISTRY ORDERAB LES Final Result [facility] CLIA# [id number] [address] [place] [address] * CT LOW EXT W CONTRAST RIGHT (04/27/2024 10:03 AM CDT) Anatomical Region Laterality Modality Lower Extremity Computed Tomogra phy 04/27/2024 9:43 AM CDT Impressions 04/27/2024 10:27 AM CDT IMPRESSION: 1. Deep venous thrombosis in the peroneal vein. 2. Diffuse skin thickening and inflammatory changes throughout the right lower extremity favored to represent cellulitis. No discrete fluid collection identified. The examination was performed with the adjustment of mA according to the patient size and/or the use of Iterative Reconstruction Technique. DICTATION LOCATION: Location 1 - [facility] 04/27/2024 10:27 AM CDT EXAMINATION: Computed tomography (CT) of the right lower extremity with contrast HISTORY: Soft tissue infection suspected, lower leg, xray done TECHNIQUE: CT of the right lower extremity was performed following the uneventful administration of 90 mL intravenous contrast according to standard protocol. COMPARISON: Bilateral lower extremity Doppler ultrasound from an outside facility on 04/26/2024. CTA of the lower extremities from an outside facility on 04/26/2024. CTA chest from an outside facility on 04/26/2024. FINDINGS: No acute fracture or dislocation is identified. The bones are osteopenic. Knee joint effusion is present. Small popliteal cyst is seen. Mild degenerative changes are seen in the knee. There are filling defects in the proximal peroneal vein and mid peroneal vein consistent with deep venous thrombosis. Diffuse skin thickening and inflammatory changes are seen throughout the right lower extremity. No discrete, drainable fluid collection is identified. Procedure Note Jose J Gonzales MD - 04/27/2024 EXAMINATION: Computed tomography (CT) of the right lower extremity with contrast HISTORY: Soft tissue infection suspected, lower leg, xray done TECHNIQUE: CT of the right lower extremity was performed following the uneventful administration of 90 mL intravenous contrast according to standard protocol. COMPARISON: Bilateral lower extremity Doppler ultrasound from an outside facility on 04/26/2024. CTA of the lower extremities from an outside facility on 04/26/2024. CTA chest from an outside facility on 04/26/2024. FINDINGS: No acute fracture or dislocation is identified. The bones are osteopenic. Knee joint effusion is present. Small popliteal cyst is seen. Mild degenerative changes are seen in the knee. There are filling defects in the proximal peroneal vein and mid peroneal vein consistent with deep venous thrombosis. Diffuse skin thickening and inflammatory changes are seen throughout the right lower extremity. No discrete, drainable fluid collection is identified. IMPRESSION: 1. Deep venous thrombosis in the peroneal vein. 2. Diffuse skin thickening and inflammatory changes throughout the right lower extremity favored to represent cellulitis. No discrete fluid collection identified. The examination was performed with the adjustment of mA according to the patient size and/or the use of Iterative Reconstruction Technique. DICTATION LOCATION: Location 1 - [facility] Verónica NERI CT ORDERABLES Final Resu lt * VERIFICATION BLOOD GROUP (04/27/2024 9:17 AM CDT) ABO GROUP O 04/27/2024 10:34 AM CDT [facility] SERVICES -- [facility] RH (D) TYPE Positive 04/27/2024 10:34 AM CDT [facility] SERVICES -- [facility] Blood Venipuncture / Unknown 04/27/2024 9:17 AM CDT 04/27/2024 9:17 AM CDT Cammy Munoz MD BLOOD BANK ORDERABLES Final Result Performing Organization Address City/State/[facility] Co de Phone Number [facility] Baileyu SERVICES -- [facility]# [id number] [address] [place], [place] [id number] * ECHO COMPLETE - CONTRAST AND STRAIN IF INDICATED (04/27/2024 7:00 AM CDT) EJECTION FRACTION 65 INTERFACE SYSTEM 04/27/2024 6:28 AM CDT Narrative INTERFACE SYSTEM - 04/27/2024 2:57 PM CDT [address] [address] [email or web address] Transthoracic Echocardiogram Patient: Stefania Cline Study ID: ECHO COMPLETE - Gender: F : 1935 Age: 89 Race: JEFFERSON Height 157.5cm Study Date: 04/27/2024 Weight: 59.6kg Access. #: [id number] BP: *Referring Physician:Carolyn Carrero *Ordering Physician:Carolyn Carrero food demonstrator: Nurse: Indications: PE. STUDY CONCLUSIONS: SUMMARY: - Right ventricle: The cavity size is moderately to severely dilated. Systolic function is reduced. Hypokinesis of the RV in the basal to mid region with preserved contractility of the apical wall consistent with Penaloza#s sign and suggestive of pulmonary embolism. - Pulmonary arteries: Systolic pressure was severely increased. The peak systolic pressure is 78mm Hg. - Tricuspid valve: Severe regurgitation. - Left ventricle: The cavity size was normal. Wall thickness was normal. Global systolic function is normal. The estimated ejection fraction is 60-65%. For Epic reporting: the left ventricular ejection fraction is 65% . - Ventricular septum: There is diastolic flattening. - Aortic valve: Mild regurgitation. - Left atrium: The atrium is moderately to severely dilated. - Right atrium: The atrium was dilated. Impressions: Penaloza's Sign. 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 Cardiac Anatomy: LEFT VENTRICLE: The cavity size was normal. Wall thickness was normal. Global systolic function is normal. The estimated ejection fraction is 60-65%. For Epi c reporting: the left ventricular ejection fraction is 65% . AORTIC VALVE: Structurally normal valve. Trileaflet. Mild regurgitation. The mean systolic gradient is 6mm Hg. The peak systolic gradient is 14mm Hg. Th e LVOT to aortic valve VTI ratio is 0.68. The valve area is 2.1cm^2. The ratio of LVOT to aortic valve peak velocity is 0.62. AORTA: Aortic root: The root is normal-sized. MITRAL VALVE: Structurally normal valve. No significant regurgitation. LEFT ATRIUM: The atrium is moderately to severely dilated. RIGHT VENTRICLE: The cavity size is moderately to severely dilated. Systolic function is reduced. Hypokinesis of the RV in the basal to mid region with pre served contractility of the apical wall consistent with Penaloza#s sign and pimentel ggestive of pulmonary embolism. VENTRICULAR SEPTUM: There is diastolic flattening. PULMONIC VALVE: Structurally normal valve. No significant regurgitation. TRICUSPID VALVE: Structurally normal valve. Severe regurgitation. PULMONARY ARTERY: Systolic pressure was severely increased. RIGHT ATRIUM: The atrium was dilated. SYSTEMIC VEINS: Inferior vena cava: The IVC is dilated. Respirophasic diameter changes are blunted (< 50%). PERICARDIUM: There is no pericardial effusion. Measurements Left ventricle Value Ref IVS, ED, LAX (N) 0.8 cm 0.6 - 0.9 KATJA, LAX (L) 3.1 cm 3.8 - 5.2 KATJA/bsa, LAX (L) 1.9 cm/m^2 2.3 - 3.1 KATJA, LAX chord (N) 4.9 cm 3.8 - 5.2 ESD, LAX chord (N) 3.1 cm 2.2 - 3.5 KATJA/bsa, LAX chord (N) 3.1 cm/m^2 2.3 - 3.1 ESD/bsa, LAX chord (N) 1.9 cm/m^2 1.3 - 2.1 FS, LAX chord (N) 37 % 27 - 45 IVS, ED (N) 0.8 cm 0.6 - 0.9 PW, ED (H) 1.0 cm 0.6 - 0.9 E', lat altagracia, TDI (L) 9.4 cm/sec >=10.0 E/e', lat altagracia, TDI (N) 7 <=13 E', med altagracia, TDI (L) 5.9 cm/sec >=7.0 E/e', med altagracia, TDI 11 --------- E', avg, TDI 7.6 cm/sec --------- E/e', avg, TDI (N) 9 <=14 LVOT Value Ref Diam, S 2.0 cm --------- Area 3.1 cm^2 --------- Peak rupali, S 1.14 m/sec --------- VTI, S 21.3 cm --------- Peak grad, S 5 mm Hg --------- Right ventricle Value Ref TAPSE, MM (N) 2.0 cm >=1.7 Pressure, S 73 mm Hg --------- S' lateral (N) 11.5 cm/sec >=9.5 Left atrium Value Ref AP dim, ES (H) 4.8 cm 2.7 - 3.8 AP dim index, ES (H) 3.0 cm/m^2 1.5 - 2.3 SI dim, A4C 6.4 cm --------- Area ES, A4C (H) 24 cm^2 <=20 Area/bsa ES, A4C 15.25 cm^2/m^2 --------- LA/Ao root ratio 1.33 --------- Right atrium Value Ref SI dim, ES, A4C (H) 6.3 cm 3.4 - 5.3 SI dim/bsa, ES, A4C (H) 3.9 cm/m^2 1.9 - 3.1 Area, ES, A4C (H) 22 cm^2 10 - 18 Vol, ES, 1-p A4C 67 ml --------- Vol/bsa, ES, 1-p A4C (H) 42 ml/m^2 9 - 33 Aortic valve Value Ref Peak v, S 1.9 m/sec --------- Mean v, S 1.14 m/sec --------- VTI, S 31.3 cm --------- Mean grad, S 6 mm Hg --------- Peak grad, S 14 mm Hg --------- LVOT/AV, VTI ratio 0.68 --------- JONATHAN, VTI 2.1 cm^2 --------- JONATHAN/bsa, VTI 1.34 cm^2/m^2 --------- LVOT/AV, Vpeak ratio 0.62 --------- JONATHAN, Vmax 1.9 cm^2 --------- JONATHAN/bsa, Vmax 1.21 cm^2/m^2 --------- Mitral valve Value Ref Peak E 0.67 m/sec --------- Peak A 0.88 m/sec --------- Decel time 238 ms --------- PHT 70 ms --------- Peak E/A ratio 0.8 --------- MVA, PHT 3.1 cm^2 --------- MVA/bsa, PHT 1.96 cm^2/m^2 --------- Pulmonic valve Value Ref Peak v, S 1.39 m/sec --------- Peak grad, S 8 mm Hg --------- Tricuspid valve Value Ref TR peak v (H) 4 m/sec <=2.8 Peak RV-RA grad, S 63 mm Hg --------- Aortic root Value Ref Root diam, 3.6 cm --------- Pulmonary artery Value Ref Pressure, S 78 mm Hg --------- Systemic veins Value Ref Estimated RA pressure 10 mm Hg --------- Legend: (L) and (H) kathrin values outside specified reference range. (N) haines values inside specified reference range. Procedure data: Procedure information: A transthoracic echocardiogram was performed. Scanning was performed from the parasternal, apical, and subcostal acoustic windows. Transthoracic echocardiogram. Complete 2D, complete spectral Doppler, an d color Doppler. Birthdate: Patient birthdate: 1935. Age: Patient is 89year(s) old. Sex: gender: female. Height: 157.5cm. 62in. Weight: 59.6kg. 131.3lb. Body mass index: 24kg/m^2. Body surface area: 1.6m^2. Federico shamika date: Study date: 04/27/2024. Study time: 06:28 AM. Prepared and [place] ctronically Authenticated Tom Guerrero [id number] Procedure Note Tom Guerrero MD - 04/27/[address] [address] [email or web address] Transthoracic Echocardiogram Patient: Stefania Cline Study ID: ECHO COMPLETE - Gender: F : 1935 Age: 89 Race: JEFFERSON Height 157.5cm Study Date: 04/27/2024 Weight: 59.6kg Access. #: [id number] BP: *Referring Physician:Carolyn Carrero *Ordering Physician:Carolyn Carrero food demonstrator: Nurse: Indications: PE. STUDY CONCLUSIONS: SUMMARY: - Right ventricle: The cavity size is moderately to severely dilated.Systolic function is reduced. Hypokinesis of the RV in the basal to mid regionwith preserved contractility of the apical wall consistent with Ca#ssign and suggestive of pulmonary embolism. - Pulmonary arteries: Systolic pressure was severely increased. The peak systolic pressure is 78mm Hg. - Tricuspid valve: Severe regurgitation. - Left ventricle: The cavity size was normal. Wall thickness was normal. Global systolic function is normal. The estimated ejection fraction is 60-65%. For Epic reporting: the left ventricular ejection fraction is65% . - Ventricular septum: There is diastolic flattening. - Aortic valve: Mild regurgitation. - Left atrium: The atrium is moderately to severely dilated. - Right atrium: The atrium was dilated. Impressions: Ca's Sign. 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 Cardiac Anatomy: LEFT VENTRICLE: The cavity size was normal. Wall thickness was normal.Global systolic function is normal. The estimated ejection fraction is 60-65%.For Epi c reporting: the left ventricular ejection fraction is 65% . AORTIC VALVE: Structurally normal valve. Trileaflet. Mildregurgitation. The mean systolic gradient is 6mm Hg. The peak systolic gradient is 14mmHg. Th e LVOT to aortic valve VTI ratio is 0.68. The valve area is 2.1cm^2. Theratio of LVOT to aortic valve peak velocity is 0.62. AORTA: Aortic root: The root is normal-sized. MITRAL VALVE: Structurally normal valve. No significantregurgitation. LEFT ATRIUM: The atrium is moderately to severely dilated. RIGHT VENTRICLE: The cavity size is moderately to severely dilated.Systolic function is reduced. Hypokinesis of the RV in the basal to mid regionwith pre served contractility of the apical wall consistent with Penaloza#s signand pimentel ggestive of pulmonary embolism. VENTRICULAR SEPTUM: There is diastolic flattening. PULMONIC VALVE: Structurally normal valve. No significantregurgitation. TRICUSPID VALVE: Structurally normal valve. Severe regurgitation. PULMONARY ARTERY: Systolic pressure was severely increased. RIGHT ATRIUM: The atrium was dilated. SYSTEMIC VEINS: Inferior vena cava: The IVC is dilated. Respirophasic diameter changesare blunted (< 50%). PERICARDIUM: There is no pericardial effusion. Measurements Left ventricle Value Ref IVS, ED, LAX (N) 0.8 cm 0.6 - 0.9 KATJA, LAX (L) 3.1 cm 3.8 - 5.2 KATJA/bsa, LAX (L) 1.9 cm/m^2 2.3 - 3.1 KATJA, LAX chord (N) 4.9 cm 3.8 - 5.2 ESD, LAX chord (N) 3.1 cm 2.2 - 3.5 KATJA/bsa, LAX chord (N) 3.1 cm/m^2 2.3 - 3.1 ESD/bsa, LAX chord (N) 1.9 cm/m^2 1.3 - 2.1 FS, LAX chord (N) 37 % 27 - 45 IVS, ED (N) 0.8 cm 0.6 - 0.9 PW, ED (H) 1.0 cm 0.6 - 0.9 E', lat altagracia, TDI (L) 9.4 cm/sec >=10.0 E/e', lat altagracia, TDI (N) 7 <=13 E', med altagracia, TDI (L) 5.9 cm/sec >=7.0 E/e', med altagracia, TDI 11 --------- E', avg, TDI 7.6 cm/sec --------- E/e', avg, TDI (N) 9 <=14 LVOT Value Ref Diam, S 2.0 cm --------- Area 3.1 cm^2 --------- Peak rupali, S 1.14 m/sec --------- VTI, S 21.3 cm --------- Peak grad, S 5 mm Hg --------- Right ventricle Value Ref TAPSE, MM (N) 2.0 cm >=1.7 Pressure, S 73 mm Hg --------- S' lateral (N) 11.5 cm/sec >=9.5 Left atrium Value Ref AP dim, ES (H) 4.8 cm 2.7 - 3.8 AP dim index, ES (H) 3.0 cm/m^2 1.5 - 2.3 SI dim, A4C 6.4 cm --------- Area ES, A4C (H) 24 cm^2 <=20 Area/bsa ES, A4C 15.25 cm^2/m^2 --------- LA/Ao root ratio 1.33 --------- Right atrium Value Ref SI dim, ES, A4C (H) 6.3 cm 3.4 - 5.3 SI dim/bsa, ES, A4C (H) 3.9 cm/m^2 1.9 - 3.1 Area, ES, A4C (H) 22 cm^2 10 - 18 Vol, ES, 1-p A4C 67 ml --------- Vol/bsa, ES, 1-p A4C (H) 42 ml/m^2 9 - 33 Aortic valve Value Ref Peak v, S 1.9 m/sec --------- Mean v, S 1.14 m/sec --------- VTI, S 31.3 cm --------- Mean grad, S 6 mm Hg --------- Peak grad, S 14 mm Hg --------- LVOT/AV, VTI ratio 0.68 --------- JONATHAN, VTI 2.1 cm^2 --------- JONATHAN/bsa, VTI 1.34 cm^2/m^2 --------- LVOT/AV, Vpeak ratio 0.62 --------- JONATHAN, Vmax 1.9 cm^2 --------- JONATHAN/bsa, Vmax 1.21 cm^2/m^2 --------- Mitral valve Value Ref Peak E 0.67 m/sec --------- Peak A 0.88 m/sec --------- Decel time 238 ms --------- PHT 70 ms --------- Peak E/A ratio 0.8 --------- MVA, PHT 3.1 cm^2 --------- MVA/bsa, PHT 1.96 cm^2/m^2 --------- Pulmonic valve Value Ref Peak v, S 1.39 m/sec --------- Peak grad, S 8 mm Hg --------- Tricuspid valve Value Ref TR peak v (H) 4 m/sec <=2.8 Peak RV-RA grad, S 63 mm Hg --------- Aortic root Value Ref Root diam, 3.6 cm --------- Pulmonary artery Value Ref Pressure, S 78 mm Hg --------- Systemic veins Value Ref Estimated RA pressure 10 mm Hg --------- Legend: (L) and (H) kathrin values outside specified reference range. (N) haines values inside specified reference range. Procedure data: Procedure information: A transthoracic echocardiogram was performed.Scanning was performed from the parasternal, apical, and subcostal acousticwindows. Transthoracic echocardiogram. Complete 2D, complete spectralDoppler, an d color Doppler. Birthdate: Patient birthdate: 1935. Age:Patient is 89year(s) old. Sex: gender: female. Height: 157.5cm. 62in.Weight: 59.6kg. 131.3lb. Body mass index: 24kg/m^2. Body surface area:1.6m^2. S shamika date: Study date: 04/27/2024. Study time: 06:28 AM. Preparedand [place] ctronically Authenticated Tom Guerrero [id number] us Carolyn Dueñas DO US ORDERABLES Final Re sult INTERFACE SYSTEM Refer to clinic/hospital department * RESPIRATORY PATHOGEN PCR PANEL (04/27/2024 3:42 AM CDT) Pathologist [facility] Respiratory Pathogen PCR Panel NOT DETECTED No respiratory pathogen nucleic acids detected. 04/27/2024 4:47 AM CDT [employer] [facility] COVID-19 PCR NOT DETECTED Not Detected 04/27/2024 4:47 AM CDT [facility] Upper Respiratory ENTIRE NASOPHARYNX / Unknown Collection / Unknown 04/27/2024 3:42 AM CDT 04/27/2024 3:47 AM CDT [facility] - 04/27/2024 4:47 AM CDT The Film Array Respiratory Panel (RP2.1) is a multiplex nucleic acid detection test for 22 targets. Viruses: Adenovirus Coronavirus HKU1, NL63, 229E, and OC43 COVID-19/Severe Acute Respiratory Syndrome Coronavirus 2 Influenza A with the following subtypes: H1, H1-2009, and H3 Influenza B Human Metapneumovirus Parainfluenza virus 1, 2, 3, and 4 Respiratory Syncytial virus (RSV) Rhinovirus/Enterovirus (cannot differentiate due to genetic similarities) Bacteria: Bordetella pertussis Bordetella parapertussis Chlamydophila pneumoniae Mycoplasma pneumoniae Carolyn Dueñas DO MICROBIOLOGY - GENERAL O RDERABLES Final Result Performing Organization Address City/[facility]/ZIP Co de Phone Number [facility] Baileyu [facility]# [id number] [address] [place] [address] * (ABNORMAL) TROPONIN (04/27/2024 1:29 AM CDT) TROPONIN T, 5TH GEN 34(H) <=10 ng/L 04/27/2024 2:35 AM CDT [facility] [employer] [facility] Blood Venipuncture / Unknown 04/27/2024 1:29 AM CDT 04/27/2024 1:34 AM CDT [facility] - 04/27/2024 2:35 AM CDT Troponin elevated. Carolyn Dueñas DO CHEMISTRY ORDERABLES Fin al Result Performing Organization Address [facility]/ZIP Co de Phone Number [facility]# [id number] [address] [place] [address] from Last [address] [place] [address] [place] [address] 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 intubation): No Mechanical Ventilation (for respiratory distress) - Non-Invasive (i.e. BiPAP, CPAP): Yes * Full Code Date Activated Date Inactivated Comments 04/27/2024 1:13 AM 04/27/2024 1:36 AM Care Teams Group Sales Coordinator Relationship Specialty Start Date End Date Cheko Soriano MD [address] [place] [address] PCP - General Internal Medicine 12/18/16
--- OUTSIDE RECORDS SUMMARY | 2024-06-12 16:53 | XMS_ITS | Encounter Summary ---
Author Organization [facility] Address 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 Gender Identity Not on file Sexual Orientation Not on file documented as of this encounter Plan of Treatment Upcoming Encounters Date Type Department Care Team (Late st Contact Info) Description 08/28/2024 3:45 PM CDT Office Visit [facility] Pulmonology [facility] [address] [place] [address] Martha Marcus MD [address] [address] [place] [address] documented as of this encounter Visit Diagnoses Not on filedocumented in this encounter Additional Health Concerns Infection Onset Date Last Indicated Resolved Time 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 diff 05/12/2024 05/12/2024 05/12/2024 6:55 AM CDT documented as of this encounter Care Teams House Rn Relationship Specialty Start Date End Date Cheko Soriano MD [address] [facility] [address] [place] [address] PCP - General Internal Medicine 12/18/16 documented as of this encounter
--- OUTSIDE RECORDS SUMMARY | 2024-06-12 16:53 | XMS_ITS | CONTINUITY OF CARE DOCUMENT ---
Author Name alec michael Address Unknown Organization [facility] Address [address] [place] [address] [address] [place] [address] Phone [phone] Care Team Providers Care Legal Stenographer Name Role Phone Tabitha REID, Ezra Unavailable [phone] Reyna REID, Kip Unavailable CUAUHTEMOC VANEGAS MD Unavailable INSURANCE PROVIDERS Payer name Policy type / Coverage type Sharifa red alliance party [id number]
[2024-06-12 17:01] LABS: Alanine Aminotransferase 43 U/L (6-35); Albumin Level 2.6 g/dL (3.5-5.1); Alkaline Phosphatase 217 U/L (38-126); Anion Gap 2 mmol/L (4-12); Aspartate Amino Transferase 28 U/L (14-36); Bilirubin,Total 0.9 mg/dL (0.2-1.3); Blood Urea Nitrogen 21 mg/dL (7-17); Calcium 7.5 mg/dL (8.4-10.2); Carbon Dioxide 36 mmol/L (22-30); Chloride 94 mmol/L (98-107); Estimated Glomerular Filt Rate > 60; Glucose 91 mg/dL (65-110); INR 4.1; Partial Thromboplastin Time 52.9 Seconds (22.3-36.8); Prothrombin Time 40.3 Seconds (11.1-14.7); Sodium 132 mmol/L (137-145)
[2024-06-12 17:18] LABS: Magnesium 1.7 mg/dL (1.6-2.3)
[2024-06-12 17:20] LABS: NT Pro B Type Natriuretic Pept 5030 pg/mL (19.9-100); Troponin I < 0.012 ng/mL (0.000-0.034)
[2024-06-12] MEDS: POTASSIUM CHLORIDE 20 MEQ ER TABLET 40 MEQ PO (17:31)
[2024-06-12] MEDS: ALBUMIN HUMAN 25% 25 GM/100 ML 100 ML IVPB ×2 (17:44→22:40)
[2024-06-12] MEDS: KCL 20 MEQ/SW 100 ML 100 ML 50 MEQ IVPB (17:46)
[2024-06-12 17:48] LABS: Hemoglobin 9.9 g/dL (12.0-15.0); Mean Corpuscular Hemoglobin 26.3 pg (26-34); Mean Corpuscular Volume 87.8 fl (80-100); Mean Platelet Volume 9.1 fl (7.4-10.4); Platelet Count Result 173 k/mm3 (150-375); Red Blood Count 3.76 M/mm3 (4.2-5.4); Red Cell Distribution Width 21.4 % (11.5-14.5); White Blood Count 10.3 K/mm3 (4.5-10.0)
[2024-06-12 17:59] LABS: Magnesium 1.8 mg/dL (1.6-2.3)
[2024-06-12 18:00] LABS: INR 3.9
[2024-06-12 18:01] LABS: Fibrinogen 480 mg/dl (215-510); Partial Thromboplastin Time 53.6 Seconds (22.3-36.8)
[2024-06-12] MEDS: MAGNESIUM SULF 2 GM/WATER 50ML 2 GM/50 ML BAG IVPB (18:01)
[2024-06-12] MEDS: FUROSEMIDE INJ 40 MG/4 ML VIAL IV PUSH (18:03)
[2024-06-12 18:12] LABS: D Dimer 1.25 ug/mL (<0.48)
[2024-06-12 18:56] LABS: Add Urine Microscopic? YES; Appearance Urine Clear (Clear); Bacteria Urine None Seen /hpf; Bilirubin Urine Negative (Negative); Blood Urine 2+ (Negative); Color Urine Yellow (Yellow); Glucose Urine UA Negative (Negative); Ketones Urine Negative (Negative); Leukocyte Esterase Ur 3+ LEU/UL (Negative); Nitrate Urine Negative (Negative); Protein Urine Negative (Negative); RBC Urine 51-100 /hpf (0-2); Specific Grav Ur 1.005 (1.001-1.035); Squamous Epithelial Cell Urine None Seen /hpf (Few); Urobilinogen Urine 0.2 mg/dL (<2.0); WBC Urine 21-50 /hpf (0-3); pH Urine 5.5 (5.0-9.0)
[2024-06-12] MEDS: SODIUM CHLORIDE 0.9% IV 500 ML 999 ML IV CONT (22:40)
[2024-06-12] MEDS: MIDODRINE HCL 10 MG TABLET PO (22:40)
--- NOTE | 2024-06-12 23:02 | PC.NURSE ---
pt report and update given to SARAH Melgoza with [facility] transfer center. all questions answered.
--- NOTE | 2024-06-12 23:26 | PC.NURSE ---
[facility] transfer center calls and reports pt is assigned room 816 bed 2 with report number [phone]
--- NOTE | 2024-06-12 23:34 | PC.NURSE ---
gave pt report to SARAH Faith at phone number [phone] and all questions answered.
--- NOTE | 2024-06-12 23:34 | PC.NURSE ---
care and report given to SARAH Mtz. all questions answered.
[2024-06-16 13:39] LABS: Heparin Induced Platelet Antib Positive (Negative)
== END 2024-06-13 00:20 | disposition short-term general hospital (02) ==
PROVIDERS: Emergency Provider Physician Assistant; PCP Family Medicine
DX: I82.443 Acute embolism and thrombosis of tibial vein, bilateral (principal); I82.453 Acute embolism and thrombosis of peroneal vein, bilateral; J96.20 Acute and chronic respiratory failure, unspecified whether with hypoxia or hypercapnia; N30.01 Acute cystitis with hematuria; E87.6 Hypokalemia; I50.9 Heart failure, unspecified; R60.1 Generalized edema; I95.89 Other hypotension; R77.0 Abnormality of albumin; R79.1 Abnormal coagulation profile; F03.90 Unspecified dementia, unspecified severity, without behavioral disturbance, psychotic disturbance, mood disturbance, and anxiety; E11.22 Type 2 diabetes mellitus with diabetic chronic kidney disease; N18.30 Chronic kidney disease, stage 3 unspecified; I27.21 Secondary pulmonary arterial hypertension; M81.0 Age-related osteoporosis without current pathological fracture; M17.0 Bilateral primary osteoarthritis of knee; Z66 Do not resuscitate; Z87.01 Personal history of pneumonia (recurrent); Z85.828 Personal history of other malignant neoplasm of skin; Z79.899 Other long term (current) drug therapy; Z79.01 Long term (current) use of anticoagulants
CPT/HCPCS: 36415; 71045; 71275; 73562; 80053; 81001; 83735; 83880; 84484; 85025; 85027; 85380; 85384; 85610; 85730; 86022; 87077; 87086; 87186; 93005; 93970; 96365; 96366; 96367; 96368; 96375; 99285; A9270; J0696; J1938; J3475; J3480; J7040; P9047; Q9967

== ENCOUNTER 2024-10-17 10:16 | Outpatient (CLI) | payer MEDICARE, SELFPAY ==
--- NOTE | ~2024-10-17 | XR_ITS ---
EXAMINATION: XR shoulder LT min 2V, 10/17/2024 10:40 CDT HISTORY: M25.512 - Pain in left shoulder COMPARISON: No comparisons available. Findings: No acute fracture or malalignment. Severe degenerative changes with underlying rotator cuff injury suspected Soft tissues unremarkable. Impression: No acute fracture or malalignment. Reviewed, dictated and finalized at location A. Impression: No acute fracture or malalignment.
--- OUTSIDE RECORDS SUMMARY | 2024-10-17 11:06 | XMS_ITS | Clinical Summary ---
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 Active famotidine (PEPCID) 40 mg/5 mL suspension Take 2.5 mL (20 mg) by mouth daily. Active midodrine (PROAMATINE) 10 mg Tablet Take 1 Tablet (10 mg) by mouth every 8 hours. Active rivaroxaban (Xarelto) 20 mg Tablet Take 1 Tablet (20 mg) by mouth daily with supper. Take after completing 21 days of 15 mg twice daily with food. 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 Gender Identity Not on file Sexual Orientation Not on file Last Filed Vital Signs Vital Sign Reading Time Taken Comments Blood Pressure 120/78 08/28/2024 3:58 PM CDT Pulse 74 08/28/2024 3:58 PM CDT Temperature 36.8 C (98.2 F) 05/22/2024 12:11 PM CDT Respiratory Rate 20 05/22/2024 12:11 PM CDT Oxygen Saturation 95% 08/28/2024 3:58 PM CDT Inhaled Oxygen Concentration - - Weight 50.9 kg (112 lb 3.2 oz) 08/28/2024 3:58 P M CDT Height 157.5 cm (5' 2) 08/28/2024 3:58 PM CDT Body Mass Index 20.52 08/28/2024 3:58 PM CDT Plan of Treatment Upcoming Encounters Date Type Department Care Team (Late st Contact Info) Description 03/03/2025 3:00 PM JOURNEYMAN ELECTRICIAN Office Visit [facility] Pulmonology [facility] [address] [place] [address] Martha Marcus MD [address] [place] [address] Health Maintenance Due Date Last Done Comments DTAP/TDAP/TD VACCINES (1 - Tdap) 04/12/1954 PNEUMOCOCCAL VACCINE 50+ YEARS (1 of 2 - PCV) 04/12/18 55 ZOSTER VACCINE (1 of 2) 04/12/1985 OSTEOPOROSIS SCREENING 04/12/2000 RSV VACCINE (60+ or ) (1 - 1-dose 75+ series) 04/12/2010 INFLUENZA VACCINE (#1) 2024 Medical Devices Implanted Type Area Case Aide Device Identifier Shelf Expiration Date Model / Serial / Lot Other-Ivc Filter- Implanted:Qty: 1 on 05/02/2024 by Maryellen Degroot MD Other Inferior Vena Cava [id number] 03/26/2027 [id number] / / [id number] Description:Option ELITE Ret rievable Vena Cava Filter implanted on 05/02/[address] 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
--- OUTSIDE RECORDS SUMMARY | 2024-10-17 11:06 | XMS_ITS | Encounter Summary ---
Author Organization [facility] Address [address] [place] [address] Care Team Providers Care Commercial Leasing Manager Name Role Phone Cheko Soriano MD Primary Care Provider [phone] Encounter Details Date Type Department Care Team (Late st Contact Info) Description 01/04/2017 Chart Note Declan Camacho [facility] Radiation Therapy [address] [place] [address] [place] [address] [place] [address] Social History Tobacco Use Types Packs/Day Years Used Date Smoking Tobacco: Never Alcohol Use Standard Drinks/Week Comments Yes 0 (1 standard drink = 0.6 oz pur e alcohol) occasional Comments No Sex and Gender Information Value Date Recorded Sex Assigned at Not on file 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 Gender Identity Not on file Sexual Orientation Not on file documented as of this encounter Plan of Treatment Upcoming Encounters Date Type Department Care Team (Late st Contact Info) Description 03/03/2025 3:00 PM MATHEMATICAL SCIENTIST Office Visit [facility] Pulmonology [facility] [address] [place] [address] Martha Marcus MD [address] [place] [address] documented as of this encounter Visit Diagnoses Not on filedocumented in this encounter Additional Health Concerns Infection Onset Date Last Indicated Resolved Time R/O Respiratory 04/27/2024 04/27/2024 04/27/2024 4 :47 AM CDT 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 diff 05/12/2024 05/12/2024 05/12/2024 6:55 AM CDT documented as of this encounter Care Teams Commercial Leasing Manager Relationship Specialty Start Date End Date Cheko Soriano MD [address] [place] [phone] PCP - General Internal Medicine 12/18/16 documented as of this encounter
--- OUTSIDE RECORDS SUMMARY | 2024-10-17 11:06 | XMS_ITS | Clinical Summary ---
Author Organization [facility] Address [address] [place] [id number] Phone Care Team Providers Care Consulting Nurse Name Role Phone No, Physician Primary Care Provider [phone] Nasim Anderson MD Unavailable [phone] Allergies Active Allergy Reactions Criticality Noted Date Comments Heparin Unknown 06/13/2024 Penicillin Anaphylaxis High 06/14/2024 Medications ascorbic acid 500 mg tablet,chewableIndic ations:Vitamin C Deficiency Take 1 tablet/chew tab (500 mg total) by mouth daily 06/07/[address] (PROTONIX) 40 mg EC tabletIndications:Sy mptomatic Gastroesophageal Reflux Disease Take 1 tablet (40 mg total) by mouth daily 06/07/19 25 Active acetaminophen (TYLENOL) 500 mg tablet Take 2 tablets (1,000 mg total) by mouth every 6 (six) hours as needed for pain 06/07/19 25 Active midodrine (PROAMATINE) 10 mg tabletIndications:hy potension Take 1.5 tablets (15 mg total) by mouth every 8 (eight) hours 06/25/19 25 Active apixaban (ELIQUIS) 2.5 mg tabletIndications:Pr evention of VTE recurrence Take 1 tablet (2.5 mg total) by mouth every 12 (twelve) hours 06/25/19 25 Active docusate sodium (COLACE) 100 mg capsuleIndications:c onstipation Take 1 capsule (100 mg total) by mouth 2 (two) times a day 06/25/19 25 Active multivit gviqhezc-isza-IH-bryce cium (THERA-M) 9 mg iron-400 mcg tablet Take 1 tablet by mouth daily 06/26/19 25 Active polyethylene glycol (MIRALAX) 17 gram/dose bulk powderIndications:co nstipation Take 17 g by mouth daily 06/25/19 25 Active levothyroxine (SYNTHROID) 100 mcg tablet Take 1 tablet (100 mcg total) 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 08/02/19 25 Active furosemide (LASIX) 40 mg tablet Take 1 tablet (40 mg total) by mouth daily 08/02/19 25 Active ergocalciferol (VITAMIN D) 50,000 unit capsule Take 1 capsule (50,000 Units total) by mouth once a week Fridays Active naproxen (NAPROSYN) 500 mg tablet Take 1 tablet (500 mg total) by mouth 2 (two) times a day as needed for pain (shoulder pain) 60 tablet 08/14/19 25 Active Active Problems Problem Noted Date Diagnosed Date Cellulitis of left upper extremity 08/07/2024 ACP (advance care planning) 06/16/2024 DVT (deep venous thrombosis) 06/16/2024 CHF (congestive heart failur e), NYHA class I, acute on chronic, combined 06/13/2024 Encounters Date Type Department Care Team Description 08/13/2024 2:47 PM CDT - 08/13/2024 11:59 PM CDT Hospital Encounter [facility]ILL[facility] [address] [place] [id number] Emergency, Room R Discharge Disposition: Discharge to home or self care 08/07/2024 3:12 PM CDT - 08/13/2024 2:43 PM CDT Hospital Encounter [facility] [id number] [place] [id number] Anni Anand MD Rudomiotov, Olga, MD Burton, Jeffrey Ryan, Cellulitis of left upper extremity (Primary Dx); Pyogenic arthritis of left shoulder region, due to unspecified organism (HCC); Chronic congestive heart failure, unspecified heart failure type (HCC) Discharge Disposition: Discharge to shelter facility from Last 3 Months Social History Tobacco Use Types Packs/Day Years Used Date Smoking Tobacco: Never Passive Smoke Exposure: Never Smokeless Tobacco: Never Tobacco Cessation:Counseling Given: No [facility] Utilities Answer Date Recorded In the past 12 months has th e electric, gas, oil, or water company threatened to shut off services in your home? No 06/13/2024 Social Connection and Isolation Panel Answer Date Recorded In a typical week, how many times do you talk on the phone with family, friends, or neighbors? Three times a week 06/13/2024 How often do you get togethe r with friends or relatives? Three times a week 06/13/2024 How often do you attend chur ch or uatsdin services? Never 06/13/2024 Do you belong to any clubs o r organizations such as moravian groups, unions, fraternal or athletic groups, or school groups? No 06/13/2024 How often do you attend meet ings of the clubs or organizations you belong to? Never 06/13/2024 Are you , , di vorced, , never , or living with a partner? 06/13/2024 Overall Financial Resource Strain (CARDIA) Answe r Date Recorded How hard is it for you to pa y for the very basics like food, housing, medical care, and heating? Not very hard 06/13/2024 Hunger Vital Sign Answer Date Recorded Within the past 12 months, y ou worried that your food would run out before you got the money to buy more. Never true 06/14/19 25 Within the past 12 months, t he food you bought just didn't last and you didn't have money to get more. Never true 06/13/2024 PRAPARE - Transportation Answer Date Re corded In the past 12 months, has l ack of transportation kept you from medical appointments or from getting medications? No 10/2024 In the past 12 months, has l ack of transportation kept you from meetings, work, or from getting things needed for daily living? No 06/13/2024 Housing Stability Vital Sign Answer Franck e Recorded In the last 12 months, was t here a time when you were not able to pay the mortgage or rent on time? No 06/13/2024 In the past 12 months, how m any times have you moved where you were living? 0 06/13/2024 At any time in the past 12 m [facility], were you homeless or living in a custodial (including now)? No 06/13/2024 Personal Safety Answer Date Recorded Have you ever been in or are you currently in a harmful physical or emotional relationship or is someone making you feel afraid or unsafe? 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 Gender Identity Not on file Sexual Orientation Not on file Obstetrics History Last Filed Vital Signs Vital Sign Reading Time Taken Comments Blood Pressure 115/82 08/13/2024 11:31 AM CDT Pulse 66 08/13/2024 11:31 AM CDT Temperature 36.6 C (97.9 F) 08/13/2024 11:31 AM CDT Respiratory Rate 18 08/13/2024 11:31 AM CDT Oxygen Saturation 100% 08/13/2024 11:31 AM CDT Inhaled Oxygen Concentration - - Weight 69.2 kg (152 lb 8.9 oz) 08/08/2024 12:04 AM CDT Height 165 cm (5' 4.96) 08/08/2024 12:04 AM CDT Body Mass Index 25.42 08/08/2024 12:04 AM CDT Plan of Treatment Health Maintenance Due Date Last Done Comments Depression Screening 1935 Osteoporosis Screening-Bone Density Scan 1935 DTaP/Tdap/Td Vaccine (1 - Tdap) 04/12/1946 Hepatitis B Screening 04/12/1953 Pneumococcal vaccine 65+ (1 of 2 - PCV) 04/12/1954 Zoster Vaccine (1 of 2) 04/12/1985 Well Visit 65+ 04/12/2000 Influenza Vaccine (#1) 2024 Fall Risk Assessment 08/13/2025 08/13/2024 Procedures Procedure Name Priority Date/Time Associated Diagnosis Comments POCT GLUCOSE DEVICE Routine 08/13/2024 1 1:46 AM CDT POCT GLUCOSE DEVICE Routine 08/13/2024 6 :39 AM CDT EGFR Routine 08/13/2024 3:17 AM CDT BASIC METABOLIC PANEL Routine 08/13/2024 3:17 AM CDT CBC WITHOUT DIFFERENTIAL Routine 08/13/2024 3:17 AM CDT POCT GLUCOSE DEVICE Routine 08/12/2024 8 :41 PM CDT POCT GLUCOSE DEVICE Routine 08/12/2024 5 :00 PM CDT POCT GLUCOSE DEVICE Routine 08/12/2024 1 2:16 PM CDT POCT GLUCOSE DEVICE Routine 08/12/2024 6 :43 AM CDT EGFR Routine 08/12/2024 4:53 AM CDT BASIC METABOLIC PANEL Routine 08/12/2024 4:53 AM CDT CBC WITHOUT DIFFERENTIAL Routine 08/12/2024 4:53 AM CDT POCT GLUCOSE DEVICE Routine 08/11/2024 8 :26 PM CDT POCT GLUCOSE DEVICE Routine 08/11/2024 4 :51 PM CDT POCT GLUCOSE DEVICE Routine 08/11/2024 1 2:13 PM CDT POCT GLUCOSE DEVICE Routine 08/11/2024 6 :22 AM CDT EGFR Routine 08/11/2024 4:48 AM CDT BASIC METABOLIC PANEL Routine 08/11/2024 4:48 AM CDT CBC WITHOUT DIFFERENTIAL Routine 08/11/2024 4:48 AM CDT URINALYSIS AND REFLEX TO MICROSCOPIC Routine 08/10/2024 10:40 PM CDT POCT GLUCOSE DEVICE Routine 08/10/2024 7 :51 PM CDT POCT GLUCOSE DEVICE Routine 08/10/2024 5 :11 PM CDT POCT GLUCOSE DEVICE Routine 08/10/2024 1 2:25 PM CDT POCT GLUCOSE DEVICE Routine 08/10/2024 6 :06 AM CDT EGFR Routine 08/10/2024 5:06 AM CDT BASIC METABOLIC PANEL Routine 08/10/2024 5:06 AM CDT CBC WITHOUT DIFFERENTIAL Routine 08/10/2024 5:06 AM CDT POCT GLUCOSE DEVICE Routine 08/09/2024 8 :17 PM CDT POCT GLUCOSE DEVICE Routine 08/09/2024 4 :59 PM CDT POCT GLUCOSE DEVICE Routine 08/09/2024 1 2:20 PM CDT POCT GLUCOSE DEVICE Routine 08/09/2024 6 :12 AM CDT EGFR Routine 08/09/2024 5:39 AM CDT BASIC METABOLIC PANEL Routine 08/09/2024 5:39 AM CDT CBC WITHOUT DIFFERENTIAL Routine 08/09/2024 5:39 AM CDT POCT GLUCOSE DEVICE Routine 08/08/2024 8 :42 PM CDT POCT GLUCOSE DEVICE Routine 08/08/2024 4 :48 PM CDT POCT GLUCOSE DEVICE Routine 08/08/2024 1 2:13 PM CDT POCT GLUCOSE DEVICE Routine 08/08/2024 6 :49 AM CDT TROPONIN T HIGH-SENSITIVITY 2-HOUR Timed 08/08/2024 5:13 AM CDT EGFR Routine 08/08/2024 3:31 AM CDT EGFR Routine 08/08/2024 3:31 AM CDT DIFFERENTIAL AUTO Routine 08/08/2024 3:3 1 AM CDT TROPONIN T HIGH-SENSITIVITY SERIES (BASELINE, 2HR, 4HR, 6HR) Routine 08/08/2024 3:31 AM CDT PRO B-TYPE NATRIURETIC PEPTIDE Routine 08/08/2024 3:31 AM CDT COMPREHENSIVE METABOLIC PANEL Routine 08/08/2024 3:31 AM CDT CBC WITH AUTO DIFFERENTIAL Routine 08/08/2024 3:31 AM CDT CREATININE Routine 08/08/2024 3:31 AM CDT TROPONIN T HIGH-SENSITIVITY 6-HOUR Timed 08/07/2024 11:51 PM CDT TROPONIN T HIGH-SENSITIVITY 4-HR Timed 08/07/2024 11:51 PM CDT POCT GLUCOSE DEVICE Routine 08/07/2024 1 0:46 PM CDT CELL DIFFERENTIAL, BODY FLUID STAT 08/07/2024 8:35 PM CDT CRYSTAL ANALYSIS, BODY FLUID STAT 08/07/2024 8:35 PM CDT CELL COUNT W/REFLEX DIFFERENTIAL, BODY FLUID STAT 08/07/2024 8:35 PM CDT AEROBIC AND ANAEROBIC CULTURE AND GRAM STAIN STAT 08/07/2024 8:35 PM CDT XR SHOULDER LEFT 2 OR MORE VIEWS ED 08/07/2024 6:40 PM CDT TROPONIN T HIGH-SENSITIVITY 2-HOUR Timed 08/07/2024 6:10 PM CDT XR CHEST 1 VIEW ED 08/07/2024 3:55 PM CDT CRP (ACUTE PHASE) STAT 08/07/2024 3:4 9 PM CDT ERYTHROCYTE SEDIMENTATION RATE STAT 08/07/2024 3:49 PM CDT EGFR STAT 08/07/2024 3:49 PM CDT URINALYSIS, MICROSCOPIC ONLY STAT 08/07/2024 3:49 PM CDT DIFFERENTIAL AUTO STAT 08/07/2024 3:4 9 PM CDT PRO B-TYPE NATRIURETIC PEPTIDE STAT 08/07/2024 3:49 PM CDT TROPONIN T HIGH-SENSITIVITY SERIES (BASELINE, 2HR, 4HR, 6HR) STAT 08/07/2024 3:49 PM CDT COMPREHENSIVE METABOLIC PANEL STAT 08/07/2024 3:49 PM CDT CBC WITH AUTO DIFFERENTIAL STAT 08/07/2024 3:49 PM CDT URINE CULTURE STAT 08/07/2024 3:49 PM CDT URINALYSIS AND REFLEX TO MICROSCOPIC AND CULTURE STAT 08/07/2024 3:49 PM CDT ECG 12-LEAD Routine 08/07/2024 2:35 PM CDT from Last 3 Months Results * POCT glucose (08/13/2024 11:46 AM CDT) Glucose, POC 127 70 - 199 mg/dL POC Performer [id number] [facility] Blood 08/13/2024 11:4 6 AM CDT 08/13/2024 11:46 AM CDT Reese Georges LAB POCT ORDERABLES - DEV ICE Final Result Performing Organization Address [facility] Co de Phone Number NEEMA PHILLIPS [address] [employer] [place] [address] * POCT glucose (08/13/2024 6:39 AM CDT) Glucose, POC 126 70 - 199 mg/dL POC Performer [id number] [facility] Blood 08/13/2024 6:39 AM CDT 08/13/2024 6:39 AM CDT [facility] PO[facility] ORDERABLES - DEV ICE Final Result Performing Organization Address [facility] de Phone Number NEEMA PHILLIPS [address] [facility] [employer] [place] [address] * eGFR (08/13/2024 3:17 AM CDT) eGFR 90 >=60 mL/min/1. 73 m2 Comment: Interpretive Data Reference Interval Normal >/= 90 mL/min/1.73m2 Mildly decreased* 60 - 89 mL/min/1.73m2 Mildly to moderately decreased 45 - 59 mL/min/1.73m2 Moderately to severely decreased 30 - 44 mL/min/1.73m2 Severely decreased 15 - 29 mL/min/1.73m2 Kidney Failure < 15 mL/min/1.73m2 *Relative to young adult level Estimated glomerular filtration rate is determined by the 2020 CKD-EPI equation recommended by the National Kidney Foundation (A Unifying Approach to GFR Estimation: Recommendations of the NKF-ASK Task Force on Reassessing the Inclusion of Race in Diagnosing Kidney Disease, JASN 2020). The CKD-EPI equation should not be used for patients with unstable renal function and has not been validated in children and those over 70. Current interpretive data was last reviewed 2020. Blood 08/13/2024 3:17 AM CDT 08/13/2024 4:17 AM CDT Sharon Chairez MD LAB BLOOD ORDERABLES Final Re sult Performing Organization Address City/[facility]/ZIP Co de Phone Number NEEMA PHILLIPS [address] [employer] [place] [address] * (ABNORMAL) CBC without differential (08/13/2024 3:17 AM CDT) WBC 6.99 3.80 - 9.90 K/cumm Hgb 9.3(L) 11.9 - 15.5 g/dL [facility] Hct 29.6(L) 35.6 - 45.5 % [facility] Plt 269 150 - 400 K/cumm [facility] MPV 9.5 9.1 - 12.3 fL [facility] RBC 3.58(L) 3.90 - 5.20 M/cumm [facility] MCV 82.7 81.3 - 96.4 fL [facility] MCH 26.0(L) 27.1 - 33.3 pg [facility] MCHC 31.4(L) 32.3 - 35.7 g/dL [facility] RDW CV 14.6 11.1 - 14.9 % [facility] RDW SD 44.2 35.7 - 48.1 fL [facility] NRBC abs 0.00 0.00 - 0.01 K/cumm [facility] Blood 08/13/2024 3:17 AM CDT 08/13/2024 4:17 AM CDT Sharon Chairez MD LAB BLOOD ORDERABLES Final Re sult Performing Organization Address City/[facility]/ZIP Co de Phone Number NEEMA PHILLIPS [address] Department [place] [employer] [place] [address] * (ABNORMAL) Basic metabolic panel (08/13/2024 3:17 AM CDT) Sodium 141 135 - 145 mmol/L Potassium, pl 3.9 3.3 - 4.9 mmol/L [facility] Chloride 101 97 - 110 mmol/L [facility] CO2 29 22 - 32 mmol/L [facility] Anion gap 11 2 - 15 mmol/L [facility] BUN 19 6 - 25 mg/dL [facility] Creatinine 0.50(L) 0.60 - 1.10 mg/dL [facility] Glucose 108 70 - 199 mg/dL [facility] Comment: Interpretive Data Fasting glucose >/= 126 mg/dl is diagnostic for diabetes. Fasting is defined as no caloric intake for at least 8 hours. Fasting glucose between 100 mg/dl to 125 mg/dl is diagnostic of prediabetes. In a patient with classic symptoms of hyperglycemia or hyperglycemic crisis, a random glucose >/= 200 mg/dl is diagnostic for diabetes. In the absence of unequivocal hyperglycemia, results should be confirmed by repeat testing. The classification and Diagnosis of Diabetes Diabetes Care 2021; 46: S19-S40. Current interpretive data was last revised 2022. Calcium 9.0 8.5 - 10.3 mg/dL [facility] Blood 08/13/2024 3:17 AM CDT 08/13/2024 4:17 AM CDT Sharon Chairez MD LAB BLOOD ORDERABLES Final Re sult Performing Organization Address City/[facility]/ZIP Co de Phone Number NEEMA [address] Department [place] [address] * POCT glucose (08/12/2024 8:41 PM CDT) Glucose, POC 145 70 - 199 mg/dL POC Performer [id number] [facility] Blood 08/12/2024 8:41 PM CDT 08/12/2024 8:41 PM CDT Reese Georges DO LAB POCT ORDERABLES - DEV ICE Final Result NEEMA PHILLIPS [address] [facility] [employer] [place] [address] * POCT glucose (08/12/2024 5:00 PM CDT) Glucose, POC 157 70 - 199 mg/dL POC Performer [id number] [facility] Blood 08/12/2024 5:00 PM CDT 08/12/2024 5:00 PM CDT Sharon Chairez MD LAB POCT ORDERABLES - DEVICE Final Result Performing Organization Address [facility] Co de Phone Number LETITIASERGE PHILLIPS [address] [place] [address] * POCT glucose (08/12/2024 12:16 PM CDT) Glucose, POC 113 70 - 199 mg/dL POC Performer [id number] [facility] Blood 08/12/2024 12:1 6 PM CDT 08/12/2024 12:16 PM CDT Sharon Cahirez MD LAB POCT ORDERABLES - DEVICE Final Result Performing Organization Address [facility] Co de Phone Number LETITIASERGE PHILLIPS [address] [facility] [employer] [place] [address] * POCT glucose (08/12/2024 6:43 AM CDT) Glucose, POC 123 70 - 199 mg/dL POC Performer [id number] [facility] Blood 08/12/2024 6:43 AM CDT 08/12/2024 6:43 AM CDT Sharon Chairez MD LAB POCT ORDERABLES - DEVICE Final Result Performing Organization Address City/[facility] Co de Phone Number NEEMA PHILLIPS [address] [facility] [employer] [place] [address] * eGFR (08/12/2024 4:53 AM CDT) eGFR 90 >=60 mL/min/1. 73 m2 Comment: Interpretive Data Reference Interval Normal >/= 90 mL/min/1.73m2 Mildly decreased* 60 - 89 mL/min/1.73m2 Mildly to moderately decreased 45 - 59 mL/min/1.73m2 Moderately to severely decreased 30 - 44 mL/min/1.73m2 Severely decreased 15 - 29 mL/min/1.73m2 Kidney Failure < 15 mL/min/1.73m2 *Relative to young adult level Estimated glomerular filtration rate is determined by the 2020 CKD-EPI equation recommended by the National Kidney Foundation (A Unifying Approach to GFR Estimation: Recommendations of the NKF-ASK Task Force on Reassessing the Inclusion of Race in Diagnosing Kidney Disease, JASN 2020). The CKD-EPI equation should not be used for patients with unstable renal function and has not been validated in children and those over 70. Current interpretive data was last reviewed 2020. Blood 08/12/2024 4:53 AM CDT 08/12/2024 5:56 AM CDT us Sharon Chairez MD LAB BLOOD ORDERABLES Final Re sult NEEMA PHILLIPS [address] Department [place] [address] * (ABNORMAL) CBC without differential (08/12/2024 4:53 AM CDT) Pathologist [facility] [place] WBC 7.62 3.80 - 9.90 K/cumm Hgb 9.4(L) 11.9 - 15.5 g/dL [facility] Hct 30.2(L) 35.6 - 45.5 % [facility] Plt 271 150 - 400 K/cumm [facility] MPV 9.6 9.1 - 12.3 fL [facility] RBC 3.62(L) 3.90 - 5.20 M/cumm [facility] MCV 83.4 81.3 - 96.4 fL [facility] MCH 26.0(L) 27.1 - 33.3 pg [facility] MCHC 31.1(L) 32.3 - 35.7 g/dL [facility] RDW CV 14.6 11.1 - 14.9 % [facility] RDW SD 44.4 35.7 - 48.1 fL [facility] NRBC abs 0.00 0.00 - 0.01 K/cumm [facility] Blood 08/12/2024 4:53 AM CDT 08/12/2024 5:56 AM CDT Sharon Chairez MD LAB BLOOD ORDERABLES Final Re sult [facility] [address] Department [place] [address] * (ABNORMAL) Basic metabolic panel (08/12/2024 4:53 AM CDT) Sodium 137 135 - 145 mmol/L Potassium, pl 3.7 3.3 - 4.9 mmol/L [facility] Chloride 97 97 - 110 mmol/L [facility] CO2 28 22 - 32 mmol/L [facility] Anion gap 12 2 - 15 mmol/L [facility] BUN 21 6 - 25 mg/dL [facility] Creatinine 0.48(L) 0.60 - 1.10 mg/dL [facility] Glucose 120 70 - 199 mg/dL [facility] Comment: Interpretive Data Fasting glucose >/= 126 mg/dl is diagnostic for diabetes. Fasting is defined as no caloric intake for at least 8 hours. Fasting glucose between 100 mg/dl to 125 mg/dl is diagnostic of prediabetes. In a patient with classic symptoms of hyperglycemia or hyperglycemic crisis, a random glucose >/= 200 mg/dl is diagnostic for diabetes. In the absence of unequivocal hyperglycemia, results should be confirmed by repeat testing. The classification and Diagnosis of Diabetes Diabetes Care 2021; 46: S19-S40. Current interpretive data was last revised 2022. Calcium 8.9 8.5 - 10.3 mg/dL [facility] Blood 08/12/2024 4:53 AM CDT 08/12/2024 5:56 AM CDT Sharon Chairez MD LAB BLOOD ORDERABLES Final Re sult Performing Organization Address [facility] Co de Phone Number NEEMA PHILLIPS [address] [facility] [employer] [place], [place] [address] * (ABNORMAL) POCT glucose (08/11/2024 8:26 PM CDT) Glucose, POC 202(H) 70 - 199 mg/dL POC Performer [id number] [facility] Blood 08/11/2024 8:26 PM CDT 08/11/2024 8:26 PM CDT Sharon Chairez MD LAB POCT ORDERABLES - DEVICE Final Result Performing Organization Address [facility] Co de Phone Number LETITIASERGE PHILLIPS [address] [facility] [employer] [place] [address] * POCT glucose (08/11/2024 4:51 PM CDT) Glucose, POC 130 70 - 199 mg/dL POC Performer [id number] [facility] Blood 08/11/2024 4:51 PM CDT 08/11/2024 4:51 PM CDT Sharon Chairez MD LAB POCT ORDERABLES - DEVICE Final Result Performing Organization Address [facility] Co de Phone Number LETITIASERGE PHILLIPS [address] [employer] [place] [address] * POCT glucose (08/11/2024 12:13 PM CDT) Glucose, POC 124 70 - 199 mg/dL POC Performer [id number] [facility] Blood 08/11/2024 12:1 3 PM CDT 08/11/2024 12:13 PM CDT Sharon Chairez MD LAB POCT ORDERABLES - DEVICE Final Result Performing Organization Address [facility]/ZIP Co de Phone Number NEEMA PHILLIPS [address] Department [employer] [place] [address] * POCT glucose (08/11/2024 6:22 AM CDT) Glucose, POC 124 70 - 199 mg/dL POC Performer [id number] LETITIASERGE PHILLIPS Blood 08/11/2024 6:22 AM CDT 08/11/2024 6:22 AM CDT Sharon Chairez MD LAB POCT ORDERABLES - DEVICE Final Result Performing Organization Address City/[facility] Co de Phone Number NEEMA PHILLIPS [address] [facility] [employer] [place] [address] * eGFR (08/11/2024 4:48 AM CDT) eGFR 85 >=60 mL/min/1. 73 m2 Comment: Interpretive Data Reference Interval Normal >/= 90 mL/min/1.73m2 Mildly decreased* 60 - 89 mL/min/1.73m2 Mildly to moderately decreased 45 - 59 mL/min/1.73m2 Moderately to severely decreased 30 - 44 mL/min/1.73m2 Severely decreased 15 - 29 mL/min/1.73m2 Kidney Failure < 15 mL/min/1.73m2 *Relative to young adult level Estimated glomerular filtration rate is determined by the 2020 CKD-EPI equation recommended by the National Kidney Foundation (A Unifying Approach to GFR Estimation: Recommendations of the NKF-ASK Task Force on Reassessing the Inclusion of Race in Diagnosing Kidney Disease, JASN 2020). The CKD-EPI equation should not be used for patients with unstable renal function and has not been validated in children and those over 70. Current interpretive data was last reviewed 2020. Blood 08/11/2024 4:48 AM CDT 08/11/2024 5:12 AM CDT Sharon Chairez MD LAB BLOOD ORDERABLES Final Re sult NEEMA PHILLIPS [address] Department [place] [address] * (ABNORMAL) CBC without differential (08/11/2024 4:48 AM CDT) Pathologist [facility] [place] WBC 6.42 3.80 - 9.90 K/cumm Hgb 9.5(L) 11.9 - 15.5 g/dL [facility] Hct 30.4(L) 35.6 - 45.5 % [facility] Plt 265 150 - 400 K/cumm [facility] MPV 9.2 9.1 - 12.3 fL [facility] RBC 3.58(L) 3.90 - 5.20 M/cumm [facility] MCV 84.9 81.3 - 96.4 fL [facility] MCH 26.5(L) 27.1 - 33.3 pg [facility] MCHC 31.3(L) 32.3 - 35.7 g/dL [facility] RDW CV 14.6 11.1 - 14.9 % [facility] RDW SD 44.9 35.7 - 48.1 fL [facility] NRBC abs 0.00 0.00 - 0.01 K/cumm [facility] Blood 08/11/2024 4:48 AM CDT 08/11/2024 5:08 AM CDT us Sharon Chairez MD LAB BLOOD ORDERABLES Final Re sult [facility] [address] Department [place] [address] * Basic metabolic panel (08/11/2024 4:48 AM CDT) Pathologist [facility] [place] Sodium 138 135 - 145 mmol/L Potassium, pl 3.9 3.3 - 4.9 mmol/L [facility] Chloride 98 97 - 110 mmol/L [facility] CO2 29 22 - 32 mmol/L [facility] Anion gap 11 2 - 15 mmol/L [facility] BUN 22 6 - 25 mg/dL [facility] Creatinine 0.61 0.60 - 1.10 mg/dL [facility] Glucose 133 70 - 199 mg/dL [facility] Comment: Interpretive Data Fasting glucose >/= 126 mg/dl is diagnostic for diabetes. Fasting is defined as no caloric intake for at least 8 hours. Fasting glucose between 100 mg/dl to 125 mg/dl is diagnostic of prediabetes. In a patient with classic symptoms of hyperglycemia or hyperglycemic crisis, a random glucose >/= 200 mg/dl is diagnostic for diabetes. In the absence of unequivocal hyperglycemia, results should be confirmed by repeat testing. The classification and Diagnosis of Diabetes Diabetes Care 202; 46: S19-S40. Current interpretive data was last revised 2022. Calcium 8.9 8.5 - 10.3 mg/dL [facility] Blood 08/11/2024 4:48 AM CDT 08/11/2024 5:12 AM CDT us Sharon Chairez MD LAB BLOOD ORDERABLES Final Re sult [facility] [address] Department [place] [address] * Urinalysis reflex to microscopic (08/10/2024 10:40 PM CDT) Color, ur Yellow Yellow Clarity, ur Clear Clear [facility] Specific gravity, ur 1.008 1.003 - 1.030 [facility] pH, urine 6.5 [facility] Comment: Interpretive Data U rine pH is affected by diet, medications, systemic acid-base disturbances, and renal tubular function. pH may affect urinary stone formation. For example, urine pH below 6.0 may help reduce the tendency for calcium phosphate stones and pH greater than 6.0 may reduce the tendency for uric acid stone formation. Source: [facility] [employer] Current Interpretive Data was last revised on 2017 Protein, ur ql Negative Negative [facility] Glucose, ur ql Negative Negative [facility] Ketones, ur Negative Negative [facility] Bilirubin, ur Negative Negative [facility] Blood, ur Negative Negative [facility] Urobilinogen, ur <2.0 <2.0 mg/dL [facility] Nitrite, ur Negative Negative [facility] Leukocyte esterase, ur Negative Negative [facility] UA reflex comment Reflex conditions for microscopic UA not met. [facility] Urine 08/10/2024 10:4 0 PM CDT 08/10/2024 11:05 PM CDT Horacio Perez SLAB MILLER OPERATOR LAB URINE ORDERABLES Cindy l Result Performing Organization Address [facility]/ZIP Co de Phone Number NEEMA PHILLIPS [address] [facility] [place] [place] [address] * POCT glucose (08/10/2024 7:51 PM CDT) Glucose, POC 173 70 - 199 mg/dL POC Performer [id number] [facility] Blood 08/10/2024 7:51 PM CDT 08/10/2024 7:51 PM CDT Sharon Chairez MD LAB POCT ORDERABLES - DEVICE Final Result Performing Organization Address [facility] Co de Phone Number NEEMA PHILLIPS [address] [facility] [place] [place] [address] * POCT glucose (08/10/2024 5:11 PM CDT) Glucose, POC 164 70 - 199 mg/dL POC Performer [id number] [facility] Blood 08/10/2024 5:11 PM CDT 08/10/2024 5:11 PM CDT Sharon Chairez MD LAB POCT ORDERABLES - DEVICE Final Result Performing Organization Address [facility] Co de Phone Number NEEMA PHILLIPS [address] [facility] [place] [place] [address] * POCT glucose (08/10/2024 12:25 PM CDT) Glucose, POC 137 70 - 199 mg/dL POC Performer [id number] [facility] Blood 08/10/2024 12:2 5 PM CDT 08/10/2024 12:25 PM CDT Sharon Chairez MD LAB POCT ORDERABLES - DEVICE Final Result NEEMA PHILLIPS [address] [facility] [place] [place] [address] * POCT glucose (08/10/2024 6:06 AM CDT) Glucose, POC 129 70 - 199 mg/dL POC Performer [id number] [facility] Blood 08/10/2024 6:06 AM CDT 08/10/2024 6:06 AM CDT Sharon Chairez MD LAB POCT ORDERABLES - DEVICE Final Result Performing Organization Address City/[facility] Co de Phone Number NEEMA PHILLIPS [address] Department [employer] [place] [address] * eGFR (08/10/2024 5:06 AM CDT) eGFR 89 >=60 mL/min/1. 73 m2 Comment: Interpretive Data Reference Interval Normal >/= 90 mL/min/1.73m2 Mildly decreased* 60 - 89 mL/min/1.73m2 Mildly to moderately decreased 45 - 59 mL/min/1.73m2 Moderately to severely decreased 30 - 44 mL/min/1.73m2 Severely decreased 15 - 29 mL/min/1.73m2 Kidney Failure < 15 mL/min/1.73m2 *Relative to young adult level Estimated glomerular filtration rate is determined by the 2020 CKD-EPI equation recommended by the National Kidney Foundation (A Unifying Approach to GFR Estimation: Recommendations of the NKF-ASK Task Force on Reassessing the Inclusion of Race in Diagnosing Kidney Disease, JASN 2020). The CKD-EPI equation should not be used for patients with unstable renal function and has not been validated in children and those over 70. Current interpretive data was last reviewed 2020. Blood 08/10/2024 5:06 AM CDT 08/10/2024 5:22 AM CDT Sharon Chairez MD LAB BLOOD ORDERABLES Final Re sult Performing Organization Address [facility] Co de Phone Number NEEMA PHILLIPS [address] Department of [employer] [place] [address] * (ABNORMAL) CBC without differential (08/10/2024 5:06 AM CDT) WBC 6.50 3.80 - 9.90 K/cumm Hgb 9.5(L) 11.9 - 15.5 g/dL [facility] Hct 31.1(L) 35.6 - 45.5 % [facility] Plt 266 150 - 400 K/cumm [facility] MPV 9.8 9.1 - 12.3 fL [facility] RBC 3.67(L) 3.90 - 5.20 M/cumm [facility] MCV 84.7 81.3 - 96.4 fL [facility] MCH 25.9(L) 27.1 - 33.3 pg [facility] MCHC 30.5(L) 32.3 - 35.7 g/dL [facility] RDW CV 14.6 11.1 - 14.9 % [facility] RDW SD 44.9 35.7 - 48.1 fL [facility] NRBC abs 0.00 0.00 - 0.01 K/cumm [facility] Blood 08/10/2024 5:06 AM CDT 08/10/2024 5:22 AM CDT Sharon Chairez MD LAB BLOOD ORDERABLES Final Re sult Performing Organization Address City/[facility]/ZIP Co de Phone Number NEEMA PHILLIPS [address] Department [place] [address] * (ABNORMAL) Basic metabolic panel (08/10/2024 5:06 AM CDT) Sodium 133(L) 135 - 145 mmol/L Potassium, pl 3.9 3.3 - 4.9 mmol/L [facility] Chloride 95(L) 97 - 110 mmol/L [facility] CO2 29 22 - 32 mmol/L [facility] Anion gap 9 2 - 15 mmol/L [facility] BUN 23 6 - 25 mg/dL [facility] Creatinine 0.51(L) 0.60 - 1.10 mg/dL [facility] Glucose 114 70 - 199 mg/dL [facility] Comment: Interpretive Data Fasting glucose >/= 126 mg/dl is diagnostic for diabetes. Fasting is defined as no caloric intake for at least 8 hours. Fasting glucose between 100 mg/dl to 125 mg/dl is diagnostic of prediabetes. In a patient with classic symptoms of hyperglycemia or hyperglycemic crisis, a random glucose >/= 200 mg/dl is diagnostic for diabetes. In the absence of unequivocal hyperglycemia, results should be confirmed by repeat testing. The classification and Diagnosis of Diabetes Diabetes Care 2021; 46: S19-S40. Current interpretive data was last revised 2022. Calcium 8.9 8.5 - 10.3 mg/dL [facility] Blood 08/10/2024 5:06 AM CDT 08/10/2024 5:22 AM CDT Sharon Chairez MD LAB BLOOD ORDERABLES Final Re sult Performing Organization Address City/[facility]/ZIP Co de Phone Number NEEMA PHILLIPS [address] [employer] [place] [address] * (ABNORMAL) POCT glucose (08/09/2024 8:17 PM CDT) Glucose, POC 213(H) 70 - 199 mg/dL POC Performer [id number] [facility] Blood 08/09/2024 8:17 PM CDT 08/09/2024 8:17 PM CDT Sharon Chairez MD LAB POCT ORDERABLES - DEVICE Final Result Performing Organization Address City/[facility]/ZIP Co de Phone Number NEEMA [address] Department of [employer] [place], [place] [id number] * POCT glucose (08/09/2024 4:59 PM CDT) Glucose, POC 168 70 - 199 mg/dL POC Performer [id number] [facility] Blood 08/09/2024 4:59 PM CDT 08/09/2024 4:59 PM CDT Sharon Chairez MD LAB POCT ORDERABLES - DEVICE Final Result Performing Organization Address [facility] Co de Phone Number NEEMA PHILLIPS [address] [facility] [place] [place] [address] * POCT glucose (08/09/2024 12:20 PM CDT) Glucose, POC 140 70 - 199 mg/dL POC Performer [id number] [facility] Blood 08/09/2024 12:2 0 PM CDT 08/09/2024 12:20 PM CDT Sharon Chairez MD LAB POCT ORDERABLES - DEVICE Final Result Performing Organization Address [facility] de Phone Number LETITIASERGE PHILLIPS [address] Department [employer] [place] [address] * POCT glucose (08/09/2024 6:12 AM CDT) Glucose, POC 114 70 - 199 mg/dL POC Performer [id number] [facility] Blood 08/09/2024 6:12 AM CDT 08/09/2024 6:12 AM CDT Sharon Chairez MD LAB POCT ORDERABLES - DEVICE Final Result Performing Organization Address [facility] de Phone Number NEEMA PHILLIPS [address] [facility] [place] [place] [address] * eGFR (08/09/2024 5:39 AM CDT) eGFR 86 >=60 mL/min/1. 73 m2 Comment: Interpretive Data Reference Interval Normal >/= 90 mL/min/1.73m2 Mildly decreased* 60 - 89 mL/min/1.73m2 Mildly to moderately decreased 45 - 59 mL/min/1.73m2 Moderately to severely decreased 30 - 44 mL/min/1.73m2 Severely decreased 15 - 29 mL/min/1.73m2 Kidney Failure < 15 mL/min/1.73m2 *Relative to young adult level Estimated glomerular filtration rate is determined by the 2020 CKD-EPI equation recommended by the National Kidney Foundation (A Unifying Approach to GFR Estimation: Recommendations of the NKF-ASK Task Force on Reassessing the Inclusion of Race in Diagnosing Kidney Disease, JASN 2020). The CKD-EPI equation should not be used for patients with unstable renal function and has not been validated in children and those over 70. Current interpretive data was last reviewed 2020. Blood 08/09/2024 5:39 AM CDT 08/09/2024 5:46 AM CDT us Sharon Cahirez MD LAB BLOOD ORDERABLES Final Re sult [facility] [address] Department [place] [address] * (ABNORMAL) CBC without differential (08/09/2024 5:39 AM CDT) WBC 8.40 3.80 - 9.90 K/cumm Hgb 9.3(L) 11.9 - 15.5 g/dL [facility] Hct 29.1(L) 35.6 - 45.5 % [facility] Plt 244 150 - 400 K/cumm [facility] MPV 9.3 9.1 - 12.3 fL [facility] RBC 3.44(L) 3.90 - 5.20 M/cumm [facility] MCV 84.6 81.3 - 96.4 fL [facility] MCH 27.0(L) 27.1 - 33.3 pg [facility] MCHC 32.0(L) 32.3 - 35.7 g/dL [facility] RDW CV 14.6 11.1 - 14.9 % [facility] RDW SD 44.8 35.7 - 48.1 fL [facility] NRBC abs 0.00 0.00 - 0.01 K/cumm [facility] Blood 08/09/2024 5:39 AM CDT 08/09/2024 5:47 AM CDT Sharon Chairez MD LAB BLOOD ORDERABLES Final Re sult NEEMA PHILLIPS [address] Department [place] [address] * (ABNORMAL) Basic metabolic panel (08/09/2024 5:39 AM CDT) Pathologist [facility] [place] Sodium 137 135 - 145 mmol/L Potassium, pl 4.0 3.3 - 4.9 mmol/L [facility] Chloride 98 97 - 110 mmol/L [facility] CO2 29 22 - 32 mmol/L [facility] Anion gap 10 2 - 15 mmol/L [facility] BUN 24 6 - 25 mg/dL [facility] Creatinine 0.58(L) 0.60 - 1.10 mg/dL [facility] Glucose 122 70 - 199 mg/dL [facility] Comment: Interpretive Data Fasting glucose >/= 126 mg/dl is diagnostic for diabetes. Fasting is defined as no caloric intake for at least 8 hours. Fasting glucose between 100 mg/dl to 125 mg/dl is diagnostic of prediabetes. In a patient with classic symptoms of hyperglycemia or hyperglycemic crisis, a random glucose >/= 200 mg/dl is diagnostic for diabetes. In the absence of unequivocal hyperglycemia, results should be confirmed by repeat testing. The classification and Diagnosis of Diabetes Diabetes Care 2021; 46: S19-S40. Current interpretive data was last revised 2022. Calcium 8.9 8.5 - 10.3 mg/dL [facility] Blood 08/09/2024 5:39 AM CDT 08/09/2024 5:46 AM CDT Sharon Chairez MD LAB BLOOD ORDERABLES Final Re sult NEEMA PHILLIPS [address] Department [place] [address] * (ABNORMAL) POCT glucose (08/08/2024 8:42 PM CDT) Glucose, POC 223(H) 70 - 199 mg/dL POC Performer [id number] [facility] Blood 08/08/2024 8:42 PM CDT 08/08/2024 8:42 PM CDT Sharon Chairez MD LAB POCT ORDERABLES - DEVICE Final Result Performing Organization Address [facility] Co de Phone Number NEMEA PHILLIPS [address] [facility] [place] [place] [address] * POCT glucose (08/08/2024 4:48 PM CDT) Glucose, POC 144 70 - 199 mg/dL POC Performer [id number] [facility] Blood 08/08/2024 4:48 PM CDT 08/08/2024 4:48 PM CDT Sharon Chairez MD LAB POCT ORDERABLES - DEVICE Final Result Performing Organization Address [facility] Co de Phone Number LETITIASERGE PHILLIPS [address] [facility] [place] [place] [address] * POCT glucose (08/08/2024 12:13 PM CDT) Glucose, POC 150 70 - 199 mg/dL POC Performer [id number] [facility] Blood 08/08/2024 12:1 3 PM CDT 08/08/2024 12:13 PM CDT Sharon Chairez MD LAB POCT ORDERABLES - DEVICE Final Result Performing Organization Address City/[facility] Co de Phone Number NEEMA PHILLIPS [address] [facility] [place] [place] [address] * POCT glucose (08/08/2024 6:49 AM CDT) Glucose, POC 104 70 - 199 mg/dL POC Performer [id number] [facility] Blood 08/08/2024 6:49 AM CDT 08/08/2024 6:49 AM CDT Result [facility] Sharon Chairez MD LAB POCT ORDERABLES - DEVICE Final Result Performing Organization Address [facility] Co de Phone Number NEEMA PHILLIPS [address] [facility] [place] [address] * (ABNORMAL) Troponin T high-sensitivity 2-hour (08/08/2024 5:13 AM CDT) Trop T hs 48(H) <=14 ng/L Comment: Interpretive Data For further hscTnT resources including the diagnostic algorithm and an aid in interpretation, copy and paste this link: [email or web address]/show/[email or web address] Current Interpretive Data last revised 2019. Trop T hs delta 0 ng/L [facility] Trop T hs interp Insignificant [facility] Blood 08/08/2024 5:13 AM CDT 08/08/2024 5:30 AM CDT Result [facility] Gayathri Alejo NP LAB BLOOD ORDERABLES Final Result Performing Organization Address [facility] Co de Phone Number NEEMA PHILLIPS [address] [facility] [place] [place] [address] * (ABNORMAL) Troponin T high-sensitivity series (baseline, 2hr, 4hr, 6hr) (08/08/2024 3:31 AM CDT) Trop T hs 48(H) <=14 ng/L Comment: Interpretive Data For further hscTnT resources including the diagnostic algorithm and an aid in interpretation, copy and paste this link: [email or web address]/show/[email or web address] Current Interpretive Data last revised 2019. Blood 08/08/2024 3:31 AM CDT 08/08/2024 3:54 AM CDT Result [facility] Gayathri Nyakio Kag[place] [employer]ER OPERATOR LAB BLOOD ORDERABLES Final Result NEEMA PHILLIPS [address] Department [place] [address] * eGFR (08/08/2024 3:31 AM CDT) eGFR 88 >=60 mL/min/1. 73 m2 Comment: Interpretive Data Reference Interval Normal >/= 90 mL/min/1.73m2 Mildly decreased* 60 - 89 mL/min/1.73m2 Mildly to moderately decreased 45 - 59 mL/min/1.73m2 Moderately to severely decreased 30 - 44 mL/min/1.73m2 Severely decreased 15 - 29 mL/min/1.73m2 Kidney Failure < 15 mL/min/1.73m2 *Relative to young adult level Estimated glomerular filtration rate is determined by the 2020 CKD-EPI equation recommended by the National Kidney Foundation (A Unifying Approach to GFR Estimation: Recommendations of the NKF-ASK Task Force on Reassessing the Inclusion of Race in Diagnosing Kidney Disease, JASN 2020). The CKD-EPI equation should not be used for patients with unstable renal function and has not been validated in children and those over 70. Current interpretive data was last reviewed 2020. Blood 08/08/2024 3:31 AM CDT 08/08/2024 3:54 AM CDT Lori Bushra Huynh SLAB MILLER OPERATOR LAB BLOOD ORDERABLES Fi nal Result NEEMA PHILLIPS [address] Department [place] [address] * eGFR (08/08/2024 3:31 AM CDT) eGFR 88 >=60 mL/min/1. 73 m2 Comment: Interpretive Data Reference Interval Normal >/= 90 mL/min/1.73m2 Mildly decreased* 60 - 89 mL/min/1.73m2 Mildly to moderately decreased 45 - 59 mL/min/1.73m2 Moderately to severely decreased 30 - 44 mL/min/1.73m2 Severely decreased 15 - 29 mL/min/1.73m2 Kidney Failure < 15 mL/min/1.73m2 *Relative to young adult level Estimated glomerular filtration rate is determined by the 2020 CKD-EPI equation recommended by the National Kidney Foundation (A Unifying Approach to GFR Estimation: Recommendations of the NKF-ASK Task Force on Reassessing the Inclusion of Race in Diagnosing Kidney Disease, JASN 2020). The CKD-EPI equation should not be used for patients with unstable renal function and has not been validated in children and those over 70. Current interpretive data was last reviewed 2020. Blood 08/08/2024 3:31 AM CDT 08/08/2024 3:54 AM CDT us Anni Anand MD LAB BLOOD ORDERABLES Cindy hathaway Result [facility] [address] Department [place] [address] * (ABNORMAL) Differential, auto (08/08/2024 3:31 AM CDT) Neutrophil abs 5.15 1.50 - 6.50 K/cumm Imm gran abs 0.02 0.00 - 0.10 K/cumm [facility] Lymphocyte abs 0.71(L) 0.80 - 3.30 K/cumm [facility] Monocyte abs 0.72 0.20 - 0.80 K/cumm [facility] Eosinophil abs 0.10 0.00 - 0.50 K/cumm [facility] Basophil abs 0.01 0.00 - 0.10 K/cumm [facility] Neutrophil pct 76.8 % [facility] Comment: Interpretive Data Percent cell count reference ranges are not reported, since discordance with absolute values may lead to misinterpretation of CBC data. Current Interpretive Data was last revised on 2017. Imm gran pct 0.3 % [facility] Comment: Interpretive Data Percent cell count reference ranges are not reported, since discordance with absolute values may lead to misinterpretation of CBC data. Current Interpretive Data was last revised on 2017. Lymphocyte pct 10.6 % NEEMA Comment: Interpretive Data Percent cell count reference ranges are not reported, since discordance with absolute values may lead to misinterpretation of CBC data. Current Interpretive Data was last revised on 2017. Monocyte pct 10.7 % NEEMA Comment: Interpretive Data Percent cell count reference ranges are not reported, since discordance with absolute values may lead to misinterpretation of CBC data. Current Interpretive Data was last revised on 2017. Eosinophil pct 1.5 % NEEMA Comment: Interpretive Data Percent cell count reference ranges are not reported, since discordance with absolute values may lead to misinterpretation of CBC data. Current Interpretive Data was last revised on 2017. Basophil pct 0.1 % [facility] Comment: Interpretive Data Percent cell count reference ranges are not reported, since discordance with absolute values may lead to misinterpretation of CBC data. Current Interpretive Data was last revised on 2017. Blood 08/08/2024 3:31 AM CDT 08/08/2024 3:55 AM CDT Lori Huynh NP LAB BLOOD ORDERABLES nal Result NEEMA [address] Department [place] [address] * (ABNORMAL) Pro B-type natriuretic peptide (08/08/2024 3:31 AM CDT) NT-proBNP 1,990(H) <=450 pg/mL Comment: Interpretive Comments: A. Dyspnea in Acute Care Setting All Ages: < 300 pg/ml, acute heart failure unlikely. < 50 yrs: 300 - 450 pg/ml, further investigation warranted. > 450 pg/ml, acute heart failure likely. 50 - 74 yrs: 300 - 900 pg/ml, further investigation warranted. > 900 pg/ml, acute heart failure likely . > or = 75 yrs: 450 - 1800 pg/ml, further investigation warranted. > 1800 pg/ml, acute heart failure likely. B. Non-acute Setting < 75 yrs < 125 pg/ml, rules out heart failure. > or = 125 pg/ml, further investigation warranted. > or = 75 yrs < 450 pg/ml, rules out heart failure. > or = 450 pg/ml, further investigation warranted. - Knowledge of each individual patient's NT-proBNP range may be more useful than using similar cut-points for every patient. Please note that marked elevations in NT-proBNP levels may be observed in state other than Left Ventricular Congestive Failure, including: acute coronary syndromes, right heart strain/failure (including pulmonary embolism and cor pulmonale), critical illness, renal failure, as well as advanced age. - References: 1. David ARNOLD et.al. Eur Heart J. 2006:27:330-337. 2. Demian ANGUIANO, Pepe HARRIS. J. AM [place] Cardiol: Cardiovasc Imag. 2009;2: 216- 225. Interpretive Data Last Revised Date: 2017. Blood 08/08/2024 3:31 AM CDT 08/08/2024 3:54 AM CDT Lori Bushra Huynh SLAB MILLER OPERATOR LAB BLOOD ORDERABLES nal Result [facility] [address] Department [place] [address] * (ABNORMAL) CBC with auto differential (08/08/2024 3:31 AM CDT) WBC 6.71 3.80 - 9.90 K/cumm Hgb 8.6(L) 11.9 - 15.5 g/dL [facility] Hct 27.6(L) 35.6 - 45.5 % [facility] Plt 213 150 - 400 K/cumm [facility] MPV 9.6 9.1 - 12.3 fL [facility] RBC 3.28(L) 3.90 - 5.20 M/cumm [facility] MCV 84.1 81.3 - 96.4 fL [facility] MCH 26.2(L) 27.1 - 33.3 pg [facility] MCHC 31.2(L) 32.3 - 35.7 g/dL [facility] RDW CV 14.4 11.1 - 14.9 % [facility] RDW SD 44.3 35.7 - 48.1 fL [facility] NRBC abs 0.00 0.00 - 0.01 K/cumm [facility] Blood 08/08/2024 3:31 AM CDT 08/08/2024 3:55 AM CDT [facility] SLAB MILLER OPERATOR LAB BLOOD ORDERABLES Fi nal Result Performing Organization Address [facility] de Phone Number NEEMA PHILLIPS [address] [place] [address] * (ABNORMAL) Creatinine (08/08/2024 3:31 AM CDT) Creatinine 0.54(L) 0.60 - 1.10 mg/dL Blood 08/08/2024 3:31 AM CDT 08/08/2024 3:54 AM CDT Narrative [facility] - 08/08/2024 4:23 AM CDT While on vancomycin [facility] LAB BLOOD ORDERABLES Fi nal Result Performing Organization Address [facility] Phone Number NEEMA PHILLIPS [address] Department [place] [address] * (ABNORMAL) Comprehensive metabolic panel (08/08/2024 3:31 AM CDT) Sodium 136 135 - 145 mmol/L Potassium, pl 3.6 3.3 - 4.9 mmol/L [facility] Chloride 97 97 - 110 mmol/L [facility] CO2 29 22 - 32 mmol/L [facility] Anion gap 10 2 - 15 mmol/L [facility] BUN 22 6 - 25 mg/dL [facility] Creatinine 0.55(L) 0.60 - 1.10 mg/dL [facility] Glucose 144 70 - 199 mg/dL [facility] Comment: Interpretive Data Fasting glucose >/= 126 mg/dl is diagnostic for diabetes. Fasting is defined as no caloric intake for at least 8 hours. Fasting glucose between 100 mg/dl to 125 mg/dl is diagnostic of prediabetes. In a patient with classic symptoms of hyperglycemia or hyperglycemic crisis, a random glucose >/= 200 mg/dl is diagnostic for diabetes. In the absence of unequivocal hyperglycemia, results should be confirmed by repeat testing. The classification and Diagnosis of Diabetes Diabetes Care 202; 46: S19-S40. Current interpretive data was last revised 2022. Calcium 8.7 8.5 - 10.3 mg/dL [facility] Bilirubin, total 0.3 0.1 - 1.2 mg/dL [facility] Protein, pl 6.5 6.5 - 8.5 g/dL [facility] Albumin 3.2(L) 3.5 - 5.0 g/dL [facility] Alk phos 73 40 - 130 Units/L [facility] ALT 5(L) 7 - 45 Units/L [facility] AST 10 10 - 45 Units/L [facility] Blood 08/08/2024 3:31 AM CDT 08/08/2024 3:54 AM CDT us Lori Huynh SLAB MILLER OPERATOR LAB BLOOD ORDERABLES Fi nal Result [facility] [address] Department [place] [address] * Troponin T high-sensitivity 6-hour (08/07/2024 11:51 PM CDT) Trop T hs See Comment <=14 Comment: Inappropriate collection time to report a delta. Talked to Chanell SMITH 08/08/2024 01:23:58 CDT / test to be credited and possibly re-ordered. Interpretive Data For further hscTnT resources including the diagnostic algorithm and an aid in interpretation, copy and paste this link: https://nrl.testcatalog.org/show/hsTrop Current Interpretive Data last revised 2019. Trop T hs delta See Comment ng/L NEEMA Comment:Inappropriate collec tion time to report a delta. Trop T hs pct delta See Comment % NEEMA CH Comment:Inappropriate collec tion time to report a delta. Trop T hs interp See Comment NEEMA PHILLIPS Comment:Inappropriate collec tion time to report a delta. Blood 08/07/2024 11:5 1 PM CDT 08/08/2024 12:05 AM CDT us Anni Anand MD LAB BLOOD ORDERABLES Cindy l Result Performing Organization Address [facility]/ZIP Co de Phone Number NEEMA [address] [facility] [place] [place] [address] * Troponin T high-sensitivity 4-hour (08/07/2024 11:51 PM CDT) Trop T hs See Comment <=14 Comment: Inappropriate collection time to report a delta. Talked to Chanell SMITH 08/08/2024 01:23:58 CDT / test to be credited and possibly re-ordered. Interpretive Data For further hscTnT resources including the diagnostic algorithm and an aid in interpretation, copy and paste this link: https://nrl.testcatalog.org/show/hsTrop Current Interpretive Data last revised 2019. Trop T hs delta See Comment ng/L NEEMA Comment:Inappropriate collec tion time to report a delta. Trop T hs pct delta See Comment % NEEMA Comment:Inappropriate collec tion time to report a delta. Trop T hs interp See Comment NEEMA Comment:Inappropriate collec tion time to report a delta. Blood 08/07/2024 11:5 1 PM CDT 08/08/2024 12:05 AM CDT us Anni Anand MD LAB BLOOD ORDERABLES Cindy l Result Performing Organization Address [facility] Co de Phone Number LETITIASERGE PHILLIPS [address] [facility] [employer] [place] [address] * POCT glucose (08/07/2024 10:46 PM CDT) Glucose, POC 156 70 - 199 mg/dL POC Performer [phone] NEEMA Blood 08/07/2024 10:4 6 PM CDT 08/07/2024 10:46 PM CDT Sharon Chairez MD LAB POCT ORDERABLES - DEVICE Final Result Performing Organization Address [facility] Co de Phone Number LETITIASERGE [address] [address] Department [employer] [place] [address] * Crystal Analysis, Body Fluid (08/07/2024 8:35 PM CDT) Specimen type, fld Synovial Crystals Not Present CERNER CH Fluid 08/07/2024 8:35 PM CDT 08/07/2024 9:01 PM CDT Anni Anand MD LAB BODY FLUIDS AND STOOL S ORDERABLES Final Result Performing Organization Address [facility] de Phone Number NEEMA [address] [facility] [place] [place] [address] * Cell Differential, Body Fluid (08/07/2024 8:35 PM CDT) Total cells diffed 100 % Comment: Interpretive Data Unless otherwise specified, the reference range and other method performance specifications have not been established for CSF/Body Fluid tests. The test results should be integrated into the clinical context for interpretation. Current interpretive data was last revised on 2018. Neutrophils, fld 85 % CERNER CH Lymphs, fld 4 % CERNER CH Monocyte, fld 11 % CERNER CH Fluid 08/07/2024 8:35 PM CDT 08/07/2024 9:02 PM CDT Anni Anand MD LAB BODY FLUIDS AND STOOL S ORDERABLES Final Result Performing Organization Address [facility] de Phone Number NEEMA [address] [facility] [place] [place] [address] * Cell count w/rflx diff, body fluid (08/07/2024 8:35 PM CDT) Specimen type, fld Synovial Color, fld Red CERNER CH Clarity, fld Turbid CERNER CH Nucleated cells, fld 28,200 /cumm CERNER CH Comment: Interpretive Data Unless otherwise specified, the reference range and other method performance specifications have not been established for CSF/Body Fluid tests. The test results should be integrated into the clinical context for interpretation. Current interpretive data was last revised on 2018. RBC, fld 80,000 /cumm NEEMA Fluid 08/07/2024 8:35 PM CDT 08/07/2024 9:02 PM CDT Anni Anand MD LAB BODY FLUIDS AND STOOL S ORDERABLES Final Result Performing Organization Address City/[facility]/ZIP Co de Phone Number NEEMA [address] [address] [place] [employer] [place] [address] * Aerobic and anaerobic culture and gram stain Synovial fluid Shoulder, left (08/07/2024 8:35 PM CDT) Direct Specimen Exam Stain: Cytospin Gram stain shows: Abundant polymorphonuclear leukocytes seen. Red blood cells present. No organisms seen. Comment:Testing performed by : [facility], [address] [place] [address] Report Final Report: No growth NEEMA Comment:Testing performed by : [facility], [address] [place] [address] Synovial fluid (Shoulder, left) 08/07/2024 8:35 PM CDT 08/08/2024 12:07 AM CDT Narrative NEEMA - 08/18/2024 12:07 PM CDT Testing performed by [facility] ([phone]) Specimens submitted from normally sterile body sites will have all bacterial morphotypes identified. Specimens that contain grossly mixed eugenia and/or are from body sites that are not normally sterile will be examined for Staphylococcus aureus, Pseudomonas aeruginosa, beta-hemolytic strep, vancomycin-resistant Enterococcus, Bacteroides, Parabacteroides, Clostridium perfringens and fungus. If any of these are isolated, the organism will be reported. Current interpretive data was last revised on 2019. Anni Anand MD LAB MICROBIOLOGY - GENERA L ORDERABLES Final Result Performing Organization Address City/[facility]/ZIP Co de Phone Number NEEMA [address] [address] [place] [employer] [place] [address] * XR Shoulder Left 2 or More Views (08/07/2024 6:40 PM CDT) Anatomical Region Laterality Modality Upper Extremities, Shoulder Left Comp uted Radiography 08/07/2024 7:11 PM CDT Impressions 08/07/2024 7:11 PM CDT No acute osseous abnormality.. Severe glenohumeral osteoarthritis. Electronically signed by: Clarice Brown M.D. Narrative 08/07/2024 7:11 PM CDT Exam: XR SHOULDER LEFT 2 OR MORE VIEWS Date: 08/07/2024 6:10 PM History:pain Comparison: none Findings: No acute fracture or dislocation noted. Osteopenia is present. Severe glenohumeral osteoarthritis is noted with subchondral cyst at the greater tuberosity. Procedure Note Clarice Brown MD - 08/07/2024 Exam: XR SHOULDER LEFT 2 OR MORE VIEWS Date: 08/07/2024 6:10 PM History:pain Comparison: none Findings: No acute fracture or dislocation noted. Osteopenia is present. Severe glenohumeral osteoarthritis is noted with subchondral cyst at the greater tuberosity. IMPRESSION: No acute osseous abnormality.. Severe glenohumeral osteoarthritis. Electronically signed by: Clarice Brown M.D. Anni Anand MD IMG XR PROCEDURES Final R esult * (ABNORMAL) Troponin T high-sensitivity 2-hour (08/07/2024 6:10 PM CDT) Trop T hs 58(H) <=14 ng/L Comment: Interpretive Data For further hscTnT resources including the diagnostic algorithm and an aid in interpretation, copy and paste this link: https://nrl.testcatalog.org/show/hsTrop Current Interpretive Data last revised 2019. Trop T hs delta -1 ng/L CERNER CH Trop T hs interp Insignificant CERNER CH Blood 08/07/2024 6:10 PM CDT 08/07/2024 6:16 PM CDT us Anni Anand MD LAB BLOOD ORDERABLES Cindy hathaway Result NEEMA [address] [facility] Department [place] [address] * XR Chest 1 Vw Portable (08/07/2024 3:55 PM CDT) Anatomical Region Laterality Modality Body, Chest N/A Computed Radiogr aphy 08/07/2024 3:58 PM CDT Impressions 08/07/2024 3:58 PM CDT Cardiomegaly. Electronically signed by: Marilin Menard M.D. Narrative 08/07/2024 3:58 PM CDT EXAMINATION: XR CHEST 1 VIEW HISTORY: The patient is an 89-year-old female who presents with shortness of breath. Comparison is made with the previous study dated 06/23/2024. TECHNIQUE: AP portable view of the chest. FINDINGS: Cardiomegaly with aortic atherosclerosis. No failure. Right basal subsegmental atelectasis with the remainder of the lungs being clear. Procedure Note Marilin Menard MD - 08/07/2024 EXAMINATION: XR CHEST 1 VIEW HISTORY: The patient is an 89-year-old female who presents with shortness of breath. Comparison is made with the previous study dated 06/23/2024. TECHNIQUE: AP portable view of the chest. FINDINGS: Cardiomegaly with aortic atherosclerosis. No failure. Right basal subsegmental atelectasis with the remainder of the lungs being clear. IMPRESSION: Cardiomegaly. Electronically signed by: Marilin Menard M.D. us Anni Anand MD IMG XR PROCEDURES Final R esult * (ABNORMAL) Troponin T high-sensitivity series (baseline, 2hr, 4hr, 6hr) (08/07/2024 3:49 PM CDT) Trop T hs 59(H) <=14 ng/L Comment: Interpretive Data For further hscTnT resources including the diagnostic algorithm and an aid in interpretation, copy and paste this link: https://nrl.testcatalog.org/show/hsTrop Current Interpretive Data last revised 2019. Blood 08/07/2024 3:49 PM CDT 08/07/2024 3:55 PM CDT Anni Anand MD LAB BLOOD ORDERABLES Edit ed Result - Final NEEMA PHILLIPS [address] [address] Department [employer] [place], [place] [id number] * eGFR (08/07/2024 3:49 PM CDT) eGFR 84 >=60 mL/min/1. 73 m2 Comment: Interpretive Data Reference Interval Normal >/= 90 mL/min/1.73m2 Mildly decreased* 60 - 89 mL/min/1.73m2 Mildly to moderately decreased 45 - 59 mL/min/1.73m2 Moderately to severely decreased 30 - 44 mL/min/1.73m2 Severely decreased 15 - 29 mL/min/1.73m2 Kidney Failure < 15 mL/min/1.73m2 *Relative to young adult level Estimated glomerular filtration rate is determined by the 2020 CKD-EPI equation recommended by the National Kidney Foundation (A Unifying Approach to GFR Estimation: Recommendations of the NKF-ASK Task Force on Reassessing the Inclusion of Race in Diagnosing Kidney Disease, JASN 202). The CKD-EPI equation should not be used for patients with unstable renal function and has not been validated in children and those over 70. Current interpretive data was last reviewed 2020. Blood 08/07/2024 3:49 PM CDT 08/07/2024 4:02 PM CDT us Anni Anand MD LAB BLOOD ORDERABLES Cindy l Result NEEMA PHILLIPS [address] [address] Department [place] [address] * (ABNORMAL) Differential, auto (08/07/2024 3:49 PM CDT) Neutrophil abs 5.72 1.50 - 6.50 K/cumm Imm gran abs 0.04 0.00 - 0.10 K/cumm [facility] Lymphocyte abs 1.03 0.80 - 3.30 K/cumm [facility] Monocyte abs 1.32(H) 0.20 - 0.80 K/cumm CERNER Eosinophil abs 0.06 0.00 - 0.50 K/cumm [facility] Basophil abs 0.02 0.00 - 0.10 K/cumm [facility] Neutrophil pct 69.9 % [facility] Comment: Interpretive Data Percent cell count reference ranges are not reported, since discordance with absolute values may lead to misinterpretation of CBC data. Current Interpretive Data was last revised on 2017. Imm gran pct 0.5 % [facility] Comment: Interpretive Data Percent cell count reference ranges are not reported, since discordance with absolute values may lead to misinterpretation of CBC data. Current Interpretive Data was last revised on 2017. Lymphocyte pct 12.6 % [facility] Comment: Interpretive Data Percent cell count reference ranges are not reported, since discordance with absolute values may lead to misinterpretation of CBC data. Current Interpretive Data was last revised on 2017. Monocyte pct 16.1 % [facility] Comment: Interpretive Data Percent cell count reference ranges are not reported, since discordance with absolute values may lead to misinterpretation of CBC data. Current Interpretive Data was last revised on 2017. Eosinophil pct 0.7 % [facility] Comment: Interpretive Data Percent cell count reference ranges are not reported, since discordance with absolute values may lead to misinterpretation of CBC data. Current Interpretive Data was last revised on 2017. Basophil pct 0.2 % [facility] Comment: Interpretive Data Percent cell count reference ranges are not reported, since discordance with absolute values may lead to misinterpretation of CBC data. Current Interpretive Data was last revised on 2017. Blood 08/07/2024 3:49 PM CDT 08/07/2024 3:56 PM CDT Anni Anand MD LAB BLOOD ORDERABLES Cindy l Result Performing Organization Address City/State/[facility] [place] [address] [address] [employer] [place] [address] * (ABNORMAL) Pro B-type natriuretic peptide (08/07/2024 3:49 PM CDT) NT-proBNP 3,411(H) <=450 pg/mL Comment: Interpretive Comments: A. Dyspnea in Acute Care Setting All Ages: < 300 pg/ml, acute heart failure unlikely. < 50 yrs: 300 - 450 pg/ml, further investigation warranted. > 450 pg/ml, acute heart failure likely. 50 - 74 yrs: 300 - 900 pg/ml, further investigation warranted. > 900 pg/ml, acute heart failure likely . > or = 75 yrs: 450 - 1800 pg/ml, further investigation warranted. > 1800 pg/ml, acute heart failure likely. B. Non-acute Setting < 75 yrs < 125 pg/ml, rules out heart failure. > or = 125 pg/ml, further investigation warranted. > or = 75 yrs < 450 pg/ml, rules out heart failure. > or = 450 pg/ml, further investigation warranted. - Knowledge of each individual patient's NT-proBNP range may be more useful than using similar cut-points for every patient. Please note that marked elevations in NT-proBNP levels may be observed in state other than Left Ventricular Congestive Failure, including: acute coronary syndromes, right heart strain/failure (including pulmonary embolism and cor pulmonale), critical illness, renal failure, as well as advanced age. - References: 1. David ARNOLD et.al. Eur Heart J. 2006:27:330-337. 2. Demian RW, Pepe HARRIS. J. AM Cartlon Cardiol: Cardiovasc Imag. 2009;2: 216- 225. Interpretive Data Last Revised Date: 2017. Blood 08/07/2024 3:49 PM CDT 08/07/2024 3:55 PM CDT us Anni Anand MD LAB BLOOD ORDERABLES Cindy l Result Performing Organization Address City/[facility]/[place] [address] [address] [place] [address] * (ABNORMAL) Urinalysis reflex to microscopic and culture Urine, indwelling catheter (08/07/2024 3:49PM CDT) Color, ur Tena Yellow Clarity, ur Turbid(A) Clear CERNER CH Specific gravity, ur 1.017 1.003 - 1.030 CERNER CH pH, urine 5.5 CERNER CH Comment: Interpretive Data U rine pH is affected by diet, medications, systemic acid-base disturbances, and renal tubular function. pH may affect urinary stone formation. For example, urine pH below 6.0 may help reduce the tendency for calcium phosphate stones and pH greater than 6.0 may reduce the tendency for uric acid stone formation. Source: [facility] [employer] Current Interpretive Data was last revised on 2017 Protein, ur ql Trace Negative CERNER CH Glucose, ur ql Negative Negative CERNER CH Ketones, ur Negative Negative [facility]ERNER CH Bilirubin, ur Negative Negative [facility]ERNER CH Blood, ur 3+(A) Negative [facility]ERNER CH Urobilinogen, ur 2.0(A) <2.0 mg/dL CERNER CH Nitrite, ur Negative Negative [facility] CH Leukocyte esterase, ur 4+(A) Negative CERNER CH UA reflex comment Reflex to microscopic UA will be performed. CERNER Urine, indwelling catheter 08/07/2024 3:49 PM CDT 08/07/2024 3:55 PM CDT us Anni Anand MD LAB MICROBIOLOGY - GENERA L ORDERABLES Final Result [facility] [address] [address] Department [place] [address] * (ABNORMAL) CBC with auto differential (08/07/2024 3:49 PM CDT) WBC 8.19 3.80 - 9.90 K/cumm Hgb 9.3(L) 11.9 - 15.5 g/dL CERNER CH Hct 29.5(L) 35.6 - 45.5 % CERNER CH Plt 235 150 - 400 K/cumm CERNER CH MPV 9.5 9.1 - 12.3 fL CERNER CH RBC 3.45(L) 3.90 - 5.20 M/cumm [facility] MCV 85.5 81.3 - 96.4 fL [facility] MCH 27.0(L) 27.1 - 33.3 pg [facility] MCHC 31.5(L) 32.3 - 35.7 g/dL CERNER CH RDW CV 14.5 11.1 - 14.9 % [facility] RDW SD 45.0 35.7 - 48.1 fL [facility] NRBC abs 0.00 0.00 - 0.01 K/cumm [facility] Blood 08/07/2024 3:49 PM CDT 08/07/2024 3:56 PM CDT Anni Anand MD LAB BLOOD ORDERABLES Cindy hathaway Result Performing Organization Address [facility] de Phone Number NEEMA [address] [address] Department [employer] [place] [address] * (ABNORMAL) Urinalysis, microscopic only (08/07/2024 3:49 PM CDT) WBC, ur >50(A) 0 - 5 /HPF RBC, ur 21-50(A) 0 - 2 /HPF [facility] Epithelial cells, squamous, ur 1-5 0 - 5 /HPF [facility] Bacteria, ur 2+(A) [facility] Mucous, ur Present(A) [facility] Hyaline casts, ur 1-5 0 - 10 /LPF [facility] Culture Reflex Comment Reflex to urine culture will be performed. [facility] Urine, indwelling catheter 08/07/2024 3:49 PM CDT 08/07/2024 3:55 PM CDT Anni Anand MD LAB URINE ORDERABLES Cindy rivas Result Performing Organization Address [facility] Co de Phone Number NEEMA PHILLIPS [address] [address] [facility] [place] [place] [address] * (ABNORMAL) Erythrocyte sedimentation rate (08/07/2024 3:49 PM CDT) Erythrocyte sedimentation rate 42(H) 1 - 30 mm/hr Blood 08/07/2024 3:49 PM CDT 08/07/2024 6:25 PM CDT us Anni Anand MD LAB BLOOD ORDERABLES Cindy hathaway Result [facility] [address] [facility] Department [place] [address] * (ABNORMAL) Urine culture Urine, indwelling catheter (08/07/2024 3:49 PM CDT) Report Final Report: Greater than or equal to 100,000 colonies/mL of Klebsiella pneumoniae The susceptibility pattern of this Klebsiella pneumoniae indicates the possible production of an extended spectrum beta lactamase (ESBL). Patients infected with ESBL-producing organisms require contact isolation precautions. For therapeutic options for this organism, please contact infectious diseases. Greater than or equal to 100,000 colonies/mL of Klebsiella pneumoniae #2 The susceptibility pattern of this Klebsiella pneumoniae #2 indicates the possible production of an extended spectrum beta lactamase (ESBL). Patients infected with ESBL-producing organisms require contact isolation precautions. For therapeutic options for this organism, please contact infectious diseases. Greater than or equal to 100,000 colonies/mL of Escherichia coli The susceptibility pattern of this Escherichia coli indicates the possible production of an extended spectrum beta lactamase (ESBL). Patients infected with ESBL-producing organisms require contact isolation precautions. For therapeutic options for this organism, please contact infectious diseases.(.) Comment:Testing performed by : [facility], [address] [place]., [address] Organism [facility] Organ[facility] ESCHERICHIA COLI CERNER Organism [facility] Urine, indwelling catheter 08/07/2024 3:49 PM CDT 08/07/2024 6:22 PM CDT Narrative NEEMA - 08/11/2024 9:30 AM CDT Urine culture reflexed based upon urinalysis results. Testing performed by [facility] ([phone]) Organism Antibiotic Method Susceptibility Klebsiella pneumoniae Ampicillin INTERPRETATION Resistant Klebsiella pneumoniae Cefazolin INTERPRETATION Resistant Klebsiella pneumoniae Nitrofurantoin INTERPRETATION Resistant Klebsiella pneumoniae Gentamicin INTERPRETATION Susceptible Klebsiella pneumoniae Trimethoprim with Sulfamethoxazole INTERPRETATION Resistant Klebsiella pneumoniae Meropenem INTERPRETATION Susceptible Klebsiella pneumoniae Cefepime INTERPRETATION Susceptible Dose-dependent Klebsiella pneumoniae Ciprofloxacin INTERPRETATION Intermediate Klebsiella pneumoniae Ceftazidime INTERPRETATION Susceptible Klebsiella pneumoniae Ceftriaxone INTERPRETATION Resistant Klebsiella pneumoniae Cephalexin INTERPRETATION Resistant Klebsiella pneumoniae Cefuroxime-axetil INTERPRETATION Resistant Klebsiella pneumoniae Cefdinir INTERPRETATION Resistant Klebsiella pneumoniae Amikacin INTERPRETATION Susceptible Klebsiella pneumoniae Aztreonam INTERPRETATION Susceptible Klebsiella pneumoniae Imipenem INTERPRETATION Susceptible Klebsiella pneumoniae Ertapenem INTERPRETATION Susceptible Klebsiella pneumoniae Minocycline INTERPRETATION Susceptible Klebsiella pneumoniae Tobramycin INTERPRETATION Susceptible Klebsiella pneumoniae Levofloxacin INTERPRETATION Susceptible Klebsiella pneumoniae Doxycycline INTERPRETATION Intermediate Escherichia coli Ampicillin INTERPRETATION Resistant Escherichia coli Cefazolin INTERPRETATION Resistant Escherichia coli Nitrofurantoin INTERPRETATION Susceptible Escherichia coli Gentamicin INTERPRETATION Resistant Escherichia coli Trimethoprim with Sulfamethoxazole INTERPRETATION Resistant Escherichia coli Meropenem INTERPRETATION Susceptible Escherichia coli Cefepime INTERPRETATION Susceptible Dose-dependent Escherichia coli Ciprofloxacin INTERPRETATION Resistant Escherichia coli Ceftazidime INTERPRETATION Susceptible Escherichia coli Ceftriaxone INTERPRETATION Resistant Escherichia coli Cephalexin INTERPRETATION Resistant Escherichia coli Cefuroxime-axetil INTERPRETATION Resistant Escherichia coli Cefdinir INTERPRETATION Resistant Escherichia coli Amikacin INTERPRETATION Susceptible Escherichia coli Aztreonam INTERPRETATION Resistant Escherichia coli Imipenem INTERPRETATION Susceptible Escherichia coli Ertapenem INTERPRETATION Susceptible Escherichia coli Minocycline INTERPRETATION Intermediate Escherichia coli Tobramycin INTERPRETATION Resistant Escherichia coli Levofloxacin INTERPRETATION Resistant Escherichia coli Doxycycline INTERPRETATION Resistant Escherichia coli Ampicillin with Sulbactam INTERPRETAT ION Resistant Escherichia coli Fosfomycin INTERPRETATION Susceptible Klebsiella pneumoniae Ampicillin INTERPRETATION Resistant Klebsiella pneumoniae Cefazolin INTERPRETATION Resistant Klebsiella pneumoniae Nitrofurantoin INTERPRETATION Resistant Klebsiella pneumoniae Gentamicin INTERPRETATION Susceptible Klebsiella pneumoniae Trimethoprim with Sulfamethoxazole INTERPRETATION Resistant Klebsiella pneumoniae Meropenem INTERPRETATION Susceptible Klebsiella pneumoniae Cefepime INTERPRETATION Susceptible Dose-dependent Klebsiella pneumoniae Ciprofloxacin INTERPRETATION Resistant Klebsiella pneumoniae Ceftazidime INTERPRETATION Resistant Klebsiella pneumoniae Ceftriaxone INTERPRETATION Resistant Klebsiella pneumoniae Piperacillin/Tazobactam INTERPRE TATION Intermediate Klebsiella pneumoniae Cephalexin INTERPRETATION Resistant Klebsiella pneumoniae Cefuroxime-axetil INTERPRETATION Resistant Klebsiella pneumoniae Cefdinir INTERPRETATION Resistant Klebsiella pneumoniae Amikacin INTERPRETATION Susceptible Klebsiella pneumoniae Aztreonam INTERPRETATION Resistant Klebsiella pneumoniae Imipenem INTERPRETATION Susceptible Klebsiella pneumoniae Ertapenem INTERPRETATION Susceptible Klebsiella pneumoniae Minocycline INTERPRETATION Resistant Klebsiella pneumoniae Tobramycin INTERPRETATION Susceptible Klebsiella pneumoniae Levofloxacin INTERPRETATION Resistant Klebsiella pneumoniae Doxycycline INTERPRETATION Resistant Klebsiella pneumoniae Ampicillin with Sulbactam INTERP RETATION Resistant us Anni Anand MD LAB MICROBIOLOGY - GENERA L ORDERABLES Final Result NEEMA PHILLIPS [address] [address] Department [place] [address] * (ABNORMAL) CRP (acute phase) (08/07/2024 3:49 PM CDT) CRP 129.8(H) <=10.0 mg/L Blood 08/07/2024 3:49 PM CDT 08/07/2024 6:25 PM CDT Anni Anand MD LAB BLOOD ORDERABLES Cindy l Result NEEMA PHILLIPS [address] [address] Department [place] [place] [address] * (ABNORMAL) Comprehensive metabolic panel (08/07/2024 3:49 PM CDT) Sodium 133(L) 135 - 145 mmol/L Potassium, pl 3.5 3.3 - 4.9 mmol/L CERNER Chloride 91(L) 97 - 110 mmol/L CERNER CH CO2 30 22 - 32 mmol/L CERNER CH Anion gap 12 2 - 15 mmol/L [facility] [facility] BUN 27(H) 6 - 25 mg/dL [facility] Creatinine 0.64 0.60 - 1.10 mg/dL [facility] Glucose 155 70 - 199 mg/dL [facility] Comment: Interpretive Data Fasting glucose >/= 126 mg/dl is diagnostic for diabetes. Fasting is defined as no caloric intake for at least 8 hours. Fasting glucose between 100 mg/dl to 125 mg/dl is diagnostic of prediabetes. In a patient with classic symptoms of hyperglycemia or hyperglycemic crisis, a random glucose >/= 200 mg/dl is diagnostic for diabetes. In the absence of unequivocal hyperglycemia, results should be confirmed by repeat testing. The classification and Diagnosis of Diabetes Diabetes Care 202; 46: S19-S40. Current interpretive data was last revised 2022. Calcium 9.1 8.5 - 10.3 mg/dL [facility] Bilirubin, total 0.5 0.1 - 1.2 mg/dL [facility] Protein, pl 7.1 6.5 - 8.5 g/dL [facility] Albumin 3.6 3.5 - 5.0 g/dL [facility] Alk phos 86 40 - 130 Units/L [facility] ALT 9 7 - 45 Units/L [facility] AST 17 10 - 45 Units/L [facility] Blood 08/07/2024 3:49 PM CDT 08/07/2024 3:55 PM CDT us Anni Anand MD LAB BLOOD ORDERABLES Cindy l Result Performing Organization Address City/[facility]/ZIP Co de Phone Number [facility] [address] Department [place] [address] * ECG 12 lead (08/07/2024 2:35 PM CDT) 08/07/2024 2:35 PM CDT Narrative [facility] - 08/07/2024 9:12 PM CDT Vent Rate: 84 bpm RR Interval: 714 msec PA Interval: 186 msec QRS Duration: 96 msec QT Interval: 357 msec QTC Interval: 397 msec P-R-T Gladwin: 68 - -35 - -74 degrees IMPRESSION: SINUS RHYTHM LEFTWARD AXIS PATTERN CONSISTENT WITH PULMONARY DISEASE ST DEVIATION AND T-WAVE ABNORMALITY, CONSIDER ISCHEMIA Electronically Signed By: Prieto Elias MD, [facility] us Anni Anand MD ECG ORDERABLES Final Res ult Performing Organization Address [facility] Co de Phone Number [facility] [employer] [facility] from Last 3 Months Insurance MEDICARE MEDICARE Advance Directives For more information, please contact: [phone] Documents on File Type Date Recorded Patient Line Service Supervisor Expl anation ADVANCE DIRECTIVE 06/17/2024 1:03 PM Power of Manager Pharmaceutical * Full Code (Latest Code Status on File) Date Activated Date Inactivated Comments 08/07/2024 9:35 PM 08/13/2024 6:43 PM * LIMITED - No CPR Date Activated Date Inactivated Comments 06/13/2024 2:09 AM 06/25/2024 1:46 AM Question Answer Comments Provide aggressive medical m anagement before a full cardiopulmonary arrest occurs. Use antibiotics, IV Fluids, and medical treatment unless specifically selected below: No intubation Care Teams Consulting Nurse Relationship Specialty Start Date End Date No, Physician PCP - General 06/16/24 Nasim Anderson MD [address] [place] [address] Consulting Physician Cardiology 08/13/24
--- OUTSIDE RECORDS SUMMARY | 2024-10-17 11:06 | XMS_ITS | Encounter Summary ---
Author Organization [facility] Address [address] [place] [address] Care Team Providers Care Aircraft Maintenance Engineer Name Role Phone Cheko Soriano MD Primary Care Provider [phone] Reason for Visit * Reason Onset Date Comments Hospital Follow Up 05/02/2024 Encounter Details Date Type Department Care Team (Late st Contact Info) Description 05/02/2024 Telephone [facility] Pulmonology [facility] [address] [place] [address] Martha Marcus MD [address] [place] [address] Hospital Follow Up Social History [...] on file Legal Sex Female 12:28 PM GENERAL ASSISTANT Gender Identity Not on file Sexual Orientation [...] st Contact Info) Description 03/03/2025 3:00 PM GENERAL ASSISTANT Office Visit [facility] Pulmonology [facility] [address] [place] [phone] Martha Marcus MD [address] [place] [address] documented as of this encounter Visit Diagnoses Not on filedocumented in this encounter Additional Health Concerns Infection Onset Date Last Indicated Resolved Time 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 diff 05/12/2024 05/12/2024 05/12/2024 6:55 AM CDT documented as of this encounter Care Teams Aircraft Maintenance Engineer Relationship Specialty Start Date End Date Cheko Soriano MD [address] [facility] [address] [place] [id number] PCP - General Internal Medicine 12/18/16 documented as of this encounter
[2024-10-17 12:07] LABS: Hematocrit 36.0 % (37.0-47.0); Hemoglobin 11.1 g/dL (12.0-15.0); Immature Granulocyte Percent A 0.4 % (0-0.5); Lymphocytes Absolute Auto 1.20 K/mm3 (0.9-3.2); Mean Corpuscular HGB Conc 30.8 g/dl (32-36); Mean Corpuscular Hemoglobin 24.3 pg (26-34); Mean Corpuscular Volume 78.9 fl (80-100); Nucleated Red Blood Cells Absolute Auto 0.000 K/mm3 (0.0-0.012); Nucleated Red Blood Cells Perc 0.0 % (0.0-0.2); Platelet Count Result 256 k/mm3 (150-375); Red Blood Count 4.56 M/mm3 (4.2-5.4); White Blood Count 7.8 K/mm3 (4.5-10.0)
[2024-10-17 12:33] LABS: Alanine Aminotransferase 15 U/L (6-35); Albumin Level 4.2 g/dL (3.5-5.1); Alkaline Phosphatase 85 U/L (38-126); Anion Gap 9 mmol/L (4-12); Aspartate Amino Transferase 31 U/L (14-36); Bilirubin,Total 0.8 mg/dL (0.2-1.3); Blood Urea Nitrogen 49 mg/dL (7-17); Calcium 9.4 mg/dL (8.4-10.2); Carbon Dioxide 29 mmol/L (22-30); Chloride 101 mmol/L (98-107); Estimated Glomerular Filt Rate > 60; Glucose 132 mg/dL (65-110); Potassium 4.4 mmol/L (3.4-5.0); Sodium 139 mmol/L (137-145); Total Protein 8.0 g/dL (6.3-8.2)
[2024-10-17 12:50] LABS: Free T4 Free Thyroxine 1.43 ng/dL (0.78-2.19)
[2024-10-17 13:09] LABS: Thyroid Stimulating Hormone 2.430 uIU/mL (0.465-4.680)
== END 2024-10-17 10:17 | disposition home or self-care (01) ==
PROVIDERS: PCP Family Medicine; Visit Provider Family Medicine
DX: M25.512 Pain in left shoulder (principal); I10 Essential (primary) hypertension; E03.9 Hypothyroidism, unspecified
CPT/HCPCS: 36415; 73030; 80053; 84439; 84443; 85025